=== PATIENT | male | born 1970 | race Caucasian/White ===

== ENCOUNTER 2020-10-01 19:40 | Emergency (ER) | payer MEDICAID, SELFPAY ==
--- NOTE | 2020-10-01 | ECG_ITS ---
Test Reason : CP Blood Pressure : / mmHG Vent. Rate : 105 BPM Atrial Rate : 105 BPM P-R Int : 140 ms QRS Dur : 064 ms QT Int : 316 ms P-R-T Axes : 025 -10 021 degrees QTc Int : 417 ms Sinus tachycardia Otherwise normal ECG No previous ECGs available Referred By: Generic ED Physician Electronically Signed By:JULIA PRIETO MD
--- NOTE | ~2020-10-01 | XR_ITS ---
EXAMINATION: XR FINGER, LEFT CLINICAL INFORMATION: Middle finger injury COMPARISON: None TECHNIQUE: 3 views of the left left hand third digit. FINDINGS: No fracture or dislocation. Alignment is anatomic. Joint spaces are maintained. Soft tissue swelling of the hand. This is greatest at the third digit. No radiopaque foreign body. No osseous erosion. Chronic corticated ulnar styloid fracture fragments. XR/XR finger LT min 2V IMPRESSION: Third digit soft tissue swelling without associated osseous abnormality.
--- NOTE | ~2020-10-01 | XR_ITS ---
EXAMINATION: XR CHEST CLINICAL INFORMATION: Chest pain COMPARISON: 11/19/2014 TECHNIQUE: Frontal view of the chest was obtained. FINDINGS: Cardiac leads overlie the chest. The lungs are well expanded. There is no focal consolidation, edema, or effusion. No pneumothorax. The cardiomediastinal silhouette is within normal limits. No acute osseous abnormality. XR/XR chest 1V IMPRESSION: No acute pulmonary disease.
[2020-10-01 20:07] VITALS: BP 140/94; PULSE 106; RESP 18; TEMP 36.6; O2SAT 96; BMI 36.9
[2020-10-02 00:15] VITALS: BP 130/78; PULSE 89; RESP 18; TEMP 36.6; O2SAT 97
[2020-10-02 00:41] LABS: Basophils Percent Auto 0.4 % (0-2); Hemoglobin 15.2 g/dl (14.0-18.0); Imm Gran Abs Auto 0.02 X10*3/uL (0.00-0.03); Imm Gran Pct Auto 0.3 % (0.0-0.4); Mean Corpuscular Hemoglobin 29.9 pg (27.0-33.0); PLT CLUMP 1; Red Blood Count 5.08 X10*6/uL (4.60-5.80); Red Cell Distribution Width 12.2 % (11.0-16.0); SCAN SMEAR FLAG 1
[2020-10-02 00:42] LABS: MANUAL DIFF FLAG NO
[2020-10-02 00:43] LABS: Eosinophils Absolute Auto 0.3 X10*3/uL (0.0-0.4); Eosinophils Percent Auto 3.5 % (0-4); Hematocrit 45.4 % (42-52); Lymphocytes Absolute Auto 2.4 X10*3/uL (1.2-4.9); Lymphocytes Percent Auto 32.5 % (20-40); Mean Corpuscular HGB Conc 33.5 g/dl (31.0-36.0); Mean Corpuscular Volume 89.4 fL (80-98); Monocytes Absolute Auto 0.8 X10*3/uL (0.1-1.2); Monocytes Percent Auto 10.6 % (2-11); Neutrophils Absolute Auto 3.9 X10*3/uL (2.0-8.3); Neutrophils Percent Auto 52.7 % (45-73); Platelet Count 131 X10*3/uL (160-400); White Blood Count 7.4 X10*3/uL (4.8-10.8)
--- NOTE | 2020-10-02 01:01 | ED_ITS ---
HPI - Extremity Injury (Upper) General Chief Complaint: Chest Pain Stated Complaint: FINGER INFECTION? 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 Patient denies any fevers, chills, GI symptoms, or symptoms. He states he is unable to flex his left middle finger due to the infection. Related Data Previous Rx's Medication Instructions Recorded amoxicillin-pot clavulanate 1 tab PO Q12H 7 Days #14 tab 10/02/20 [Augmentin] metformin 500 mg PO BID 30 Days #60 tab 10/02/20 Allergies Allergy/AdvReac Type Severity Reaction Status Date / Time No Known Allergies Allergy Verified 10/01/20 20:12 [No Known Allergies*] Review of Systems Review of Systems: Pertinent positives and negatives as stated in HPI 10 point review of systems is otherwise negative. PMFSH Past Medical History Source: nursing notes reviewed Medical History Patient denies significant medical history Social History Social History Alcohol intake: never Smoking Status: Never smoker Smoked in Last 30 Days: No Use of substances other than those prescribed or required for medical reasons: Yes Substance Use Type: Marijuana Substance Use Frequency: Weekly Advance Directives: No Physical Exam Vital Signs: Vital Signs: Last Vital Signs Temp 97.8 F 10/02/20 00:15 Pulse 89 10/02/20 00:15 Resp 18 10/02/20 00:15 BP 130/78 10/02/20 00:15 Pulse Ox 97 10/02/20 00:15 Body Mass Index 36.9 VITAL SIGNS: Reviewed. GENERAL: Well developed, well nourished, in no acute distress. HEAD: Normocephalic/atraumatic EYES: PERRLA, EOMI OROPHARYNX: no oral lesions noted, posterior pharynx clear NECK: Supple, no adenopathy LUNGS: Normal breath sounds. No adventitious sounds or accessory muscle use. SpO2<97> CARDIOVASCULAR: Regular rate and rhythm without noted murmurs ABDOMEN: Soft, non-tender, non-distended with bowel sounds. LEFT MIDDLE FINGER: Noted pustule with surrounding abscess at the [place] DIP and observed inability to flex anywhere along the digit, capillary refill less than 3 seconds, sensation intact, but digit noted to be swollen in general. NEUROLOGIC: Alert and oriented x 4. Course Course Course Narrative: 50-year-old male with history and clinical presentation consis tent with injury to the left middle digit and subsequent development of infection. On review of all investigations patient is noted to be new diagnosis of diabetes and x-ray is negative for any acute dislocation or fracture. Incision and drainage was performed for release of 2-3 cc of purulence material and procedure was uncomplicated. Repeat point of care glucose was noted to be 351 and there is no evidence some lab work of DKA or HHS. Patient was given initial antibiotics here in the emergency room and will be discharged on completion of course with the referral to see Hand surgery. He and his daughter know to call the hand surgeon office in the morning to set up an appointment for re-evaluation. Patient will also be discharged with a prescription for metformin and both he and his daughter know that he must follow up with the primary care provider. Procedures Abscess I/D Site: hand Side (if applicable): left Sedation/analgesia: none Local Anesthetic: lidocaine 2% Amount of anesthesia used (mL): 5 Technique: incised with blade (11) Amount of fluid expressed (mL): 2 Sent for culture/gram staining?: No Irrigation: Yes Packing used?: none MDM - Extremity Injury (Upper) Lab Data Result diagrams: 10/02/20 00:35 10/02/20 00:35 Labs: Lab Results 10/02/20 10/02/20 10/02/20 Range/Units 00:35 00:35 00:35 WBC 7.4 (4.8-10.8) X10*3/uL RBC 5.08 (4.60-5.80) X10*6/uL Hgb 15.2 (14.0-18.0) g/dl Hct 45.4 (42-52) % MCV 89.4 (80-98) fL MCH 29.9 (27.0-33.0) pg MCHC 33.5 (31.0-36.0) g/dl RDW 12.2 (11.0-16.0) % Plt Count 131 L (160-400) X10*3/uL MPV 12.0 (9.4-12.4) fL Immature Gran % (Auto) 0.3 (0.0-0.4) % Neut % (Auto) 52.7 (45-73) % Lymph % (Auto) 32.5 (20-40) % Juncos % (Auto) 10.6 (2-11) % Eos % (Auto) 3.5 (0-4) % Baso % (Auto) 0.4 (0-2) % Lymph # (Auto) 2.4 (1.2-4.9) X10*3/uL Jun[place] # (Auto) 0.8 (0.1-1.2) X10*3/uL Eos # (Auto) 0.3 (0.0-0.4) X10*3/uL Baso # (Auto) 0.0 (0.0-0.2) X10*3/uL Abs Immat Gran (auto) 0.02 (0.00-0.03) X10*3/uL Absolute Neuts (auto) 3.9 (2.0-8.3) X10*3/uL Absolute Nucleated RBC 0.000 (0.0-0.012) X10*3/uL Nucleated RBC % (auto) 0.0 (0.0-0.2) /100WBC Hold Blue Top SEE NOTE Sodium 134 L (135-145) mmol/L Potassium 3.9 (3.3-5.1) mmol/L Chloride 96 (96-108) mmol/L Carbon Dioxide 27 (22-29) mmol/L Anion Gap 15 (12-20) BUN 14 (9-16) mg/dL Creatinine 0.98 (0.5-1.4) mg/dL Estim Creat Clear Calc 109.4 Estimated GFR > 60 POC Glucose (60-115) mg/dL Random Glucose 402 H* (60-115) mg/dL Calcium 8.9 (8.4-10.2) mg/dL Troponin I High Sens (<3.5-35.0) ng/L 10/02/20 10/02/20 Range/Units 00:35 02:23 WBC (4.8-10.8) X10*3/uL RBC (4.60-5.80) X10*6/uL Hgb (14.0-18.0) g/dl Hct (42-52) % MCV (80-98) fL MCH (27.0-33.0) pg MCHC (31.0-36.0) g/dl RDW (11.0-16.0) % Plt Count (160-400) X10*3/uL MPV (9.4-12.4) fL Immature Gran % (Auto) (0.0-0.4) % Neut % (Auto) (45-73) % Lymph % (Auto) (20-40) % Juncos % (Auto) (2-11) % Eos % (Auto) (0-4) % Baso % (Auto) (0-2) % Lymph # (Auto) (1.2-4.9) X10*3/uL Jun[place] # (Auto) (0.1-1.2) X10*3/uL Eos # (Auto) (0.0-0.4) X10*3/uL Baso # (Auto) (0.0-0.2) X10*3/uL Abs Immat Gran (auto) (0.00-0.03) X10*3/uL Absolute Neuts (auto) (2.0-8.3) X10*3/uL Absolute Nucleated RBC (0.0-0.012) X10*3/uL Nucleated RBC % (auto) (0.0-0.2) /100WBC Hold Blue Top Sodium (135-145) mmol/L Potassium (3.3-5.1) mmol/L Chloride (96-108) mmol/L Carbon Dioxide (22-29) mmol/L Anion Gap (12-20) BUN (9-16) mg/dL Creatinine (0.5-1.4) mg/dL Estim Creat Clear Calc Estimated GFR POC Glucose 351 H* (60-115) mg/dL Random Glucose (60-115) mg/dL Calcium (8.4-10.2) mg/dL Troponin I High Sens < 3.5 (<3.5-35.0) ng/L Discharge Plan Discharge Clinical Impression: Newly diagnosed diabetes, Abscess, Encounter for incision and drainage procedure Patient Disposition: Home, Self-Care Instructions: Foot Care for People with Diabetes (ED), Type 2 Diabetes in Adults: New Diagnosis (ED), Meal Planning with Diabetes Exchanges (DC), Diabetes and Your Skin (ED), Diabetes and Your Mouth (ED), Diabetes and Nutrition (ED), Diabetes and Exercise (ED) Additional Instructions: 1. Contin?e limpiando el dedo con agua y jab?n y s?quelo con jason nueva aplicaci?n de Band-Aid. 2. Deber? llamar a la oficina de la derivaci?n de cirug?a de mano que se le hayes proporcionado a continuaci?n. 3. Reci?n le diagnosticaron diabetes y le empezaron a yumiko un nuevo medicamento. Vaya a la farmacia para recoger vin medicamento y luego t?ansari seg?n las indicaciones. 4. Debe hacer un seguimiento con meek proveedor de atenci?n primaria lo antes posible para jason reevaluaci?n despu?s de un diagn?stico reciente de diabetes. No dude en volver al servicio de urgencias si presenta un empeoramiento km de los s?ntomas. Prescriptions: New amoxicillin-pot clavulanate [Augmentin] 875-125 mg tablet 1 tab PO Q12H 7 Days Qty: 14 RF: 0 metformin 500 mg tablet 500 mg PO BID 30 Days Qty: 60 RF: 0 Referrals: Physician,None [Primary Care Provider] - 2 days Candace Casillas MD [Physician] - 2 days (Please evaluate and treat as indicated for patient with abscess at DIP of left middle finger, not definitively tenosynovitis was started on Augmentin after I&D for 2 cc of purulence drainage. Thank you.) Print Language: [place]an
[2020-10-02 01:09] LABS: Troponin-I High Sensitivity < 3.5 ng/L (<3.5-35.0)
[2020-10-02 01:11] LABS: Anion Gap 15 (12-20); Blood Urea Nitrogen 14 mg/dL (9-16); Calcium 8.9 mg/dL (8.4-10.2); Carbon Dioxide 27 mmol/L (22-29); Chloride 96 mmol/L (96-108); Creatinine Clr Calc Pharmacy 109.4; Estimated Glomerular Filt Rate > 60; Glucose Random 402 mg/dL (60-115); Potassium 3.9 mmol/L (3.3-5.1); Sodium 134 mmol/L (135-145)
[2020-10-02] MEDS: Lidocaine HCl 2 % MPF 5 ML VIAL INFILTRATI (01:43)
[2020-10-02] MEDS: Diphth,Pertus(ACell),Tet Adult 0.5 ML SYRINGE IM (01:44)
[2020-10-02 02:28] LABS: Glucose, Whole Blood 351 mg/dL (60-115)
[2020-10-02] MEDS: Amoxicillin/Potassium Clav 875 MG TABLET PO (03:05)
== END 2020-10-02 03:10 | disposition home or self-care (01) ==
PROVIDERS: Emergency Provider Student in an Organized Health Care Education/Training Program
DX: L02.512 Cutaneous abscess of left hand (principal); E11.9 Type 2 diabetes mellitus without complications; F12.90 Cannabis use, unspecified, uncomplicated
CPT/HCPCS: 26010; 36415; 71045; 73140; 80048; 82947; 84484; 85025; 90471; 90715; 93005; 99284

== ENCOUNTER 2020-10-07 09:26 | Outpatient (REF) | payer MEDICAID, SELFPAY ==
--- NOTE | ~2020-10-07 | XR_ITS ---
EXAMINATION: XR HAND, LEFT CLINICAL INFORMATION: Left hand pain. COMPARISON: Pain left hand TECHNIQUE: PA, lateral, and oblique views of the left hand. FINDINGS: The bones and soft tissues are normal. No fracture. Alignment is anatomic. Joint spaces are maintained. There are no bony erosive changes. Dizziness osseous bone at the tip of ulnar styloid process likely remote injury or accessory bone. XR/XR hand LT min 3V IMPRESSION: No acute fracture dislocation. Small well formed bone with smooth margins along the tip of ulnar styloid process likely old avulsion injury or accessory bone.
== END 2020-10-07 09:27 | disposition home or self-care (01) ==
LOC: HO.HOSX 09:26
PROVIDERS: Visit Provider Orthopaedic Surgery
DX: M79.642 Pain in left hand (principal); M65.9 Synovitis and tenosynovitis, unspecified; L08.9 Local infection of the skin and subcutaneous tissue, unspecified
CPT/HCPCS: 73130; 99202

== ENCOUNTER 2020-10-10 07:23 | Day surgery (SDC) | payer MEDICAID, SELFPAY ==
--- NOTE | 2020-10-09 09:00 | HO.ANESPROP2 ---
Documented by User: Britt Guerrero 10/09/20 09:03 HPI - Anesthesia Eval Consult details Narrative: 50yo M for Left I&D of Middle Finger with Flexor Tendon Sheath PMFSH Active Problems Active Problems: All Active Problems (Updated 10/07/20 @ 14:12 by Candace Casillas MD) Finger infection (Acute) Flexor tenosynovitis of finger (Acute) Past Medical History Medical History (Updated 10/09/20 @ 09:03 by Britt Guerrero) Diabetes Social History Social History (Updated 10/07/20 @ 13:31 by PAKO Allen) Alcohol intake: never Smoking Status: Never smoker Use of substances other than those prescribed or required for medical reasons: Yes Substance Use Type: Marijuana Substance Use Frequency: Weekly Are you DNR?: No Advance Directives: No Advance Directives Information Provided: Yes Current occupation: right handed. Meds Allergies Allergy/AdvReac Type Severity Reaction Status Date / Time No Known Allergies Allergy Verified 10/07/20 13:29 [No Known Allergies*] Home Medications Medication Instructions Recorded Confirmed Last Taken Type metformin 1 tab PO BID 10/09/20 10/09/20 Unknown History Exam Exam Date and Time: October 09, 2020 0900 Pertinent Lab Results Pertinent Lab Results: Laboratory Tests 10/02/20 10/02/20 00:35 00:35 WBC 7.4 Hgb 15.2 Hct 45.4 Plt Count 131 L Sodium 134 L Potassium 3.9 Chloride 96 Carbon Dioxide 27 BUN 14 Creatinine 0.98 Narrative Narrative: EKG 10/01/20 Vent. Rate : 105 BPM Atrial Rate : 105 BPM P-R Int : 140 ms QRS Dur : 064 ms QT Int : 316 ms P-R-T Axes : 025 -10 021 degrees QTc Int : 417 ms Sinus tachycardia Otherwise normal ECG No previous ECGs available Assessment and Plan Assessment Anesthesia Assessment: Chart Reviewed Documented by User: Abby Porter 10/10/20 08:39 PMFSH Past Medical History Medical History (Updated 10/09/20 @ 09:03 by Britt Guerrero) Diabetes Social History Social History (Updated 10/07/20 @ 13:31 by PAKO Allen) Alcohol intake: never Smoking Status: Never smoker Use of substances other than those prescribed or required for medical reasons: Yes Substance Use Type: Marijuana Substance Use Frequency: Weekly Are you DNR?: No Advance Directives: No Advance Directives Information Provided: Yes Current occupation: right handed. Meds Allergies Allergy/AdvReac Type Severity Reaction Status Date / Time No Known Allergies Allergy Verified 10/07/20 13:29 [No Known Allergies*] Home Medications Medication Instructions Recorded Confirmed Last Taken Type metformin 1 tab PO BID 10/09/20 10/09/20 Unknown History Exam Airway Mallampati Class: III TM Dist: >3cm Neck ROM: Full Heart: RRR Lungs: CTA Assessment and Plan Assessment Anesthesia Assessment: Anesthesia Plan Discussed and Chart Reviewed Final Anesthetic Review NPO: Yes ASA Class: III Final Preanesthetic Review: Meds/Allgs Chart Reviewed, Consent Obtained/Reviewed and Anes Risks/Benef Reviewed Patient Risk: Intermediate Procedure Risk: Low Anesthetic Plan Anesthetic Plan: GA Disposition: Standard PACU
[2020-10-10 07:38] LABS: Glucose, Whole Blood 294 mg/dL (60-115)
[2020-10-10 07:50] VITALS: BMI 36.9
[2020-10-10 07:59] VITALS: BP 148/97; PULSE 90; RESP 16; TEMP 36.1; O2SAT 97
[2020-10-10] MEDS: Insulin Regular, Human 100 UNIT/ML 3 ML VIAL 10 UNIT SUBCUT (08:11)
[2020-10-10] MEDS: Lactated Ringers 1,000 ML 100 ML IVCONT (08:29)
--- NOTE | 2020-10-10 08:31 | PC.NURSE ---
Patients blood sugar [address] Abby Porter notified. New order for Insulin Regular 10 Units SQ. This administered in posterior right upper arm, tolerated well. Per Dr. Porter, recheck sugar prior to going into OR.
--- NOTE | 2020-10-10 09:10 | PC.NURSE ---
Blood Sugar rechecked at 0909, results 300. Dr Porter at bedside and notified. Okay to proceed with surgery and staff to recheck after procedure complete.
[2020-10-10 09:13] LABS: Glucose, Whole Blood 300 mg/dL (60-115)
--- NOTE | 2020-10-10 09:13 | MHC.SHP ---
Pre-Procedural Eval Section B Chief Complaint: synovitis and tenosynovitis Allergies: Allergies Allergy/AdvReac Type Severity Reaction Status Date / Time No Known Allergies Allergy Verified 10/07/20 13:29 [No Known Allergies*] Plan I have reviewed the history and physical and performed a pertinent physical examination on my patient. No changes have occurred unless specified.
--- NOTE | 2020-10-10 09:14 | P.OP_ITS ---
Operative Note Operative Note Date of Service: 10/10/20 Narrative: Operative Note Narrative: Preop diagnosis: Left middle finger flexor tenosynovitis Postop diagnosis: Same Procedure: Left middle finger I and D of flexor tendons within flexor tendon sheath Surgeon: Candace Casillas MD Anesthesia: Mac plus regional block Findings: Creamy purulence drainage from the ulnar aspect of the finger near the D IP flexion crease. This appeared to extend distally and volarly. No purulence found in the areas of the A1 ivy and A3 ivy of the flexor tendon sheath. Flexor tendon it is a found to be in good condition Implants: None Tourniquet time: 22 minutes EBL: 5.0 ml Specimen: Cultures taken of purulent material. Note patient is on Augmentin Drains: None Complications: None Disposition: Brought to the recovery room in stable condition Plan: I will give him a new prescription for Augmentin for 10 days. Follow-up early next week for wound check Indications: The patient is 50 years old with left middle finger infection, worrisome for a flexor tenosynovitis . The risks and benefits of operative treatment, including but not limited to risk of damage to blood vessels, nerves, tendons, infection, recurrence, persistent pain or numbness, incomplete resolution of preoperative symptoms, or need for further surgery were discussed with the patient and they wished to proceed with surgery. Procedure: Once consent was obtained patient was brought back to the operating suite and placed in the operating table in a supine position. . Perioperative anesthesia was administered by the anesthesia team. A tourniquet was applied to the proximal aspect of the left upper extremity and the limb was prepped and draped in a standard surgical fashion. The limb was elevated exsanguinated with Esmarch bandage and the tourniquet inflated to 250 mm of mercury for a total tourniquet time of 22 minutes. A Kulwant is a type incision was made over the volar aspect of the patient's left middle finger over the middle phalanx and proximal aspect of the distal phalanx, incorporating the laceration. Second incision was also made over the A1 ivy. The incision was made through the skin to the subcutaneous tissues using a 15. Blade. Careful dissection was made down to the level of the flexor tendon sheath with care being taken to protect the neurovascular structures. . There was thick creamy purulent material just beneath the skin near where the ER I and D had been performed at the ulnar aspect of the D IP flexion crease. This appeared to extend distally and volarly to the area of the flexor tendon insertion. Cultures were taken of this material. The flexor tendon was visualized from the A3 ivy distally. The flexor tendons appeared to be in good condition. The A1 ivy was opened proximally using a fresh set of ins truments. There was no gross purulence in this area. The A1 ivy was opened longitudinally using tenotomy scissors. I then placed a 20 gauge Angiocath the knee of the A2 ivy and irrigated from proximal to distal with normal saline copiously irrigating the flexor tendon sheath. I then passed the Angiocath from proximal to distal across the A4 ivy copiously irrigating the flexor tendon s flako in this area. The wound itself was then copiously irrigated using a bulb syringe. Some nonviable tissue was debrided using a 15. Blade and tenotomy scissors. This was mostly in the area of the previous I&D at the ulnar aspect of the D IP flexion crease. Once satisfied with our I and D the skin edges were reapproximated with some 5 0 Prolene suture material. Care was taken to reapproximate this loosely particularly in the area of the ulnar aspect of the D IP flexion crease to allow for drainage. At this point the tourniquet was deflated and hemostasis obtained with a brief period of local pressure . A digital block was performed with using some core % plain Marcaine for postop pain control. A sterile dressing and a dorsal blocking splint were then applied. The patient appears to have tolerated the procedure well and with no complications. All digits were well vascularized conclusion of the case.
[2020-10-10 10:30] VITALS: BP 134/91; PULSE 78; RESP 16; TEMP 36.8; O2SAT 98
[2020-10-10 10:35] VITALS: BP 124/91; PULSE 76; RESP 16; O2SAT 100
[2020-10-10 10:40] VITALS: BP 124/89; PULSE 75; RESP 18; O2SAT 100
[2020-10-10 10:45] VITALS: BP 123/88; PULSE 76; RESP 18; O2SAT 99
[2020-10-10 11:00] VITALS: BP 125/84; PULSE 90; RESP 20; TEMP 37.2; O2SAT 99
[2020-10-10 11:22] LABS: Glucose, Whole Blood 263 mg/dL (60-115)
== END 2020-10-10 12:03 | disposition home or self-care (01) ==
PROVIDERS: Visit Provider Orthopaedic Surgery
PROC: (CPT 26020; principal; 2020-10-10 09:00)
DX: M65.9 Synovitis and tenosynovitis, unspecified (principal); L08.9 Local infection of the skin and subcutaneous tissue, unspecified
CPT/HCPCS: 26020; 82947; 87071; 87077; 87186; 87205; J2250; J3010

== ENCOUNTER → 2020-10-15 13:18 | Outpatient (BNVA) | payer MEDICAID, SELFPAY | PROVIDERS: Visit Provider Orthopaedic Surgery | DX: M65.9 Synovitis and tenosynovitis, unspecified (principal); L08.9 Local infection of the skin and subcutaneous tissue, unspecified | CPT/HCPCS: 99212 ==

== ENCOUNTER 2020-10-16 13:31 | Inpatient (IN) | payer MEDICAID, SELFPAY ==
[2020-10-16] VITALS (12 sets, daily range): BP systolic 109–150; BP diastolic 82–95; PULSE 70–79; RESP 16; TEMP 36.1–36.7; O2SAT 94–99; BMI 31.9; BMI 36.9
[2020-10-16 10:34] LABS: Glucose, Whole Blood 271 mg/dL (60-115)
[2020-10-16] MEDS: Lactated Ringers 1,000 ML 50 ML IV ×2 (10:42→17:34)
--- NOTE | 2020-10-16 11:40 | HO.ANESPROP2 ---
HPI - Anesthesia Eval Consult details Narrative: 50 yo male patient here for I&D of flexor tendon left middle finger. Patient had same procedure done here a week ago [facility] Active Problems Active Problems: All Active Problems (Updated 10/09/20 @ 09:03 by Britt Guerrero) Finger infection (Acute) Flexor tenosynovitis of finger (Acute) Past Medical History Medical History (Updated 10/16/20 @ 12:36 by Lori Oakes) Diabetes Increased BMI Family History Family history of problems with anesthesia: No Surgical History Surgical History (Updated 10/16/20 @ 13:03 by Lori Oakes) Finger infection Laceration of scalp History of Problems with Anesthesia: No Social History Social History (Updated 10/16/20 @ 11:51 by Lori Oakes) Alcohol intake: never Smoking Status: Never smoker Use of substances other than those prescribed or required for medical reasons: Yes Substance Use Type: Marijuana Last Used Substance: Weeks (ago) Last Used Substance Other:: A week ago Currently Displaying Signs/Symptoms of Drug Intoxication Withdrawal: No Are you DNR?: No Advance Directives: No Advance Directives Information Provided: Yes Current occupation: right handed. Meds Allergies Allergy/AdvReac Type Severity Reaction Status Date / Time No Known Allergies Allergy Verified 10/15/20 14:13 [No Known Allergies*] Home Medications Medication Instructions Recorded Confirmed Last Taken Type metformin 1 tab PO BID 10/09/20 10/09/20 Unknown History Exam Exam Date and Time: October 16, 2020 1140 Height,Weight and Vital Signs: Height 5 ft 9 in Weight 113.398 kg Last Vital Signs Temp 97.9 F 10/16/20 10:24 Pulse 77 10/16/20 10:24 Resp 16 10/16/20 10:24 BP 136/93 H 10/16/20 10:24 Pulse Ox 97 10/16/20 10:24 Pertinent Lab Results Pertinent Lab Results: Laboratory Tests 10/16/20 10:29 POC Glucose 271 H Airway Mallampati Class: III TM Dist: >3cm Neck ROM: Full Heart: RRR Lungs: CTAB Assessment and Plan Assessment Anesthesia Assessment: Anesthesia Plan Discussed and Chart Reviewed Final Anesthetic Review NPO: Yes ASA Class: II Final Preanesthetic Review: No Changes in Pt Med Stat, Meds/Allgs Chart Reviewed, Consent Obtained/Reviewed and Anes Risks/Benef Reviewed Patient Risk: Intermediate Procedure Risk: Low Assessment/Block/Sedation in SS: Assess/Block/Sedation-SS Anesthetic Plan Anesthetic Plan: GA Disposition: Standard PACU
--- NOTE | 2020-10-16 12:04 | PC.NURSE ---
Patients BS 271 at at 1029. Anesthesiologist [address] Oakes notified. No new orders, okay to proceed with surgery.
--- NOTE | 2020-10-16 12:24 | MHC.SHP ---
Pre-Procedural Eval Section B Chief Complaint: I&D middle finger Allergies: Allergies Allergy/AdvReac Type Severity Reaction Status Date / Time No Known Allergies Allergy Verified 10/15/20 14:13 [No Known Allergies*] Plan I have reviewed the history and physical and performed a pertinent physical examination on my patient. No changes have occurred unless specified.
--- NOTE | 2020-10-16 12:24 | W.PM.OPN ---
Operative Note Operative Note Date of Service: 10/16/20 Narrative: Operative Note Narrative: Preop diagnosis: 1. Left middle finger infection Postop diagnosis: Same Procedure: 1. Left middle finger and hand flexor tendon sheath I&D Surgeon: Candace Casillas MD Anesthesia: Mac plus regional block Findings: Yellow purulent material from left middle finger flexor tendon sheath over the middle and distal phalanxes, and now also found in the A1 ivy area Implants: None Tourniquet time: 30 minutes EBL: 5.0 ml Specimen: Cultures from left middle finger Drains: None Complications: None Disposition: Brought to the recovery room in stable condition Plan: Admit for IV antibiotics Hospitalist consultation for newly diagnosed and uncontrolled diabetic, please note patient does not have PCP Infectious disease consultation Wound check tomorrow Check cultures Indications: The patient is a 50 year old man with newly diagnosed diabetes and a left middle finger flexor tenosynovitis. He is status post I and D last week where he was placed on Augmentin. He has since grown Klebsiella oxytoca which is not sensitive to Augmentin. . The risks and benefits of operative treatment, including but not limited to risk of damage to blood vessels, nerves, tendons, infection, recurrence, persistent pain or numbness, incomplete resolution of preoperative symptoms, or need for further surgery were discussed with the patient and they wished to proceed with surgery. Procedure: Once consent was obtained patient was brought back to the operating suite and placed in the operating table in a supine position. . Anesthesia was administered by the anesthesia team. A tourniquet was applied to the proximal aspect of the left upper extremity and the limb was prepped and draped in a standard surgical fashion. The limb was elevated exsanguinated with Esmarch bandage at the mid forearm and the tourniquet inflated to 250 mm of mercury for a total tourniquet time of 30 minutes. Sutures were removed from the left middle finger and also from the A1 ivy area at the base of the middle finger. Purulent material was found in both areas this time. Some nonviable tissue was debrided from the wound over the middle phalanx and DIP joint using tenotomy scissors. Both wounds were copiously irrigated with normal saline. I then passed an 18 gauge Angiocath beneath the A2 ivy and copiously irrigated the flexor tendon sheath in a proximal to distal direction with fluid seen in the more distal wound. Both the A1 ivy and more distal finger wounds were again copiously irrigated with normal saline. Flexor tendons were found to be in good condition. I did not see any obvious connection to the D IP joint, though it is clearly near the infection site. The infection does extend to the volar aspect of the distal phalanx just FDP insertion, but no penetration that At this point the tourniquet was deflated and hemostasis obtained with a brief period of local pressure . The skin edges were reapproximated with 5-0 nylon suture. A digital block was performed with some core % plain Marcaine for postop pain control. A sterile dressing was applied. The patient appears to have tolerated the procedure well and with no complications. All digits were well vascularized conclusion of the case.
--- NOTE | 2020-10-16 14:36 | P.CONIM_ITS ---
History of Present Illness Data of Consult Service Date: 10/16/20 <Marcelina Moran NP - Last Filed: 10/16/20 17:12> Requesting physician: Candace Casillas <Marcelina Moran NP - Last Filed: 10/16/20 17:12> Primary Care Provider: Jackelyn Physician <Marcelina Moran NP - Last Filed: 10/16/20 17:12> HPI Reason for consult: diabetes management <Marcelina Moran NP - Last Filed: 10/16/20 17:12> 50-year-old man admitted by Orthopedic surgery for left middle finger and hand flexor tendon sheath incision and drainage. He was initially seen and early October for flexor tenosynovitis. He was admitted today by Orthopedic surgery for pain management and management of his diabetes. Patient reports that he was diagnosed with diabetes in July of 2020. He reports he does not have a PCP so he was unable to get any prescriptions for a meter or other supplies. His daughter did pick him 1 up but he was unsure of how to use it. He was sent from the ED with metformin and reports that he has been taking it twice a day. His A1c is noted to be 11.5 and blood sugars are S highest 351. At this time he has very minimal amount of pain he is resting in bed comfortably with his daughter present during the interview. <Marcelina Moran NP - Last Filed: 10/16/20 17:12> Review of Systems Review of Systems: Denies any recent fever chills or decrease in appetite respiratory denies any shortness of breath coverage production cardiovascular is adjustment of any PND or edema gastrointestinal denies any dysphagia abdominal pain nausea vomiting or diarrhea genitourinary denies any dysuria frequency or hematuria musculoskeletal no pain to left hand at the moment neuropsych denies any weakness or seizures all other systems reviewed are negative <Marcelina Moran NP - Last Filed: 10/16/20 17:12> ON LICENSE OF [facility] Medical History: Medical History (Updated 10/19/20 @ 10:28 by Marcelina Moran NP) Diabetes Increased BMI <Marcelina Moran NP - Last Filed: 10/16/20 17:12> Surgical History: Surgical History (Updated 10/19/20 @ 13:49 by Devon Cobos MD) Finger infection Laceration of scalp <Marcelina Moran NP - Last Filed: 10/16/20 17:12> Social History: Social History (Updated 10/16/20 @ 11:51 by Lori Oakes) Housing: Apartment Do you presently have visiting nurse or other home services: No Alcohol intake: never Smoking Status: Never smoker Use of substances other than those prescribed or required for medical reasons: Yes Substance Use Type: Marijuana Substance Use Frequency: Weekly Last Used Substance: Weeks (ago) Last Used Substance Other:: A week ago Currently Displaying Signs/Symptoms of Drug Intoxication Withdrawal: No Any prior treatment program specific to substance use: No Have you been hit, kicked, punched, or otherwise hurt by someone within the past year? If so, by whom?: No Do you feel safe in your current relationship?: No Current Relationship Is there a partner from a previous relationship who is making you feel unsafe now?: No Are you made to feel afraid or neglected: No Are you DNR?: No Advance Directives: No Advance Directives Information Provided: Yes Do you have thoughts of harming others: None Do you have a plan to hurt others: No Plan Recently lost weight without trying: No Nutrition Risks: No Nutritional Risk Poor oral hygiene: No service: No Current occupational status: unemployed Current occupation: right handed. <Marcelina Moran NP - Last Filed: 10/16/20 17:12> Meds Allergies/Adverse reactions: Allergies Allergy/AdvReac Type Severity Reaction Status Date / Time No Known Allergies Allergy Verified 10/15/20 14:13 [No Known Allergies*] <Marcelina Moran NP - Last Filed: 10/16/20 17:12> Active Medications: Current Medications Generic Name Dose Route Start Last Admin Trade Name Freq PRN Reason Stop Dose Admin Fentanyl 25 mcg 10/16/20 13:05 Fentanyl Citrate/Pf 100 Mcg/2 Ml Vial IVPUSH Q5M PRN Pain, Moderate (Pain Scale 4-6 Fentanyl 50 mcg 10/16/20 13:05 Fentanyl Citrate/Pf 100 Mcg/2 Ml Vial IVPUSH Q5M PRN Pain, Severe (Pain Scale 7-10) Lactated Ringer's 1,000 mls @ 50 mls/hr 10/16/20 11:45 10/16/20 10:42 Lr IV 50 mls/hr .Q20H VIKAS Administration Levofloxacin 750 mg in 150 mls @ 100 mls/hr 10/17/20 13:00 Levaquin IV Q24H VIKAS Ondansetron HCl 4 mg 10/16/20 13:05 Ondansetron Hcl 4 Mg/2 Ml Vial IVPUSH ONCE PRN Nausea and Vomiting Oxycodone HCl 5 mg 10/16/20 13:05 Oxycodone Hcl Immed Release 5 Mg Tablet PO ONCE PRN Pain, Moderate (Pain Scale 4-6 Oxycodone HCl 10 mg 10/16/20 13:05 Oxycodone Hcl Immed Release 5 Mg Tablet PO ONCE PRN Pain, Severe (Pain Scale 7-10) Oxycodone HCl 5 mg 10/16/20 13:34 Oxycodone Hcl Immed Release 5 Mg Tablet PO Q8H PRN Pain, Moderate (Pain Scale 4-6 <Marcelina Moran NP - Last Filed: 10/16/20 17:12> Physical Exam Vital Signs and Narrative: Vital Signs: Last Vital Signs Temp 97.4 F 10/16/20 13:45 Pulse 72 10/16/20 14:15 Resp 16 10/16/20 14:15 BP 122/88 10/16/20 14:15 Pulse Ox 94 10/16/20 14:15 Body Mass Index 36.9 <Marcelina Moran NP - Last Filed: 10/16/20 17:12> Appearing in no acute distress lung sounds are clear to auscultation heart regular rate rhythm, clear S1, S2 positive bowel sounds, abdomen is soft, nontender neuro patient is alert x3, no focal deficits Left middle finger surgical dressing, incision not visualized <Marcelina Moran NP - Last Filed: 10/16/20 17:12> Results Labs CBC and Chem 7: : 10/19/20 05:14 10/16/20 14:45 <Marcelina Moran NP - Last Filed: 10/16/20 17:12> Labs: Laboratory Results - last 24 hr 10/16/20 10:29 POC Glucose 271 H <Marcelina Moran NP - Last Filed: 10/16/20 17:12> Assessment and Plan (1) Finger infection: Status: Acute <Marcelina Moran NP - Last Filed: 10/16/20 17:12> 50 year old man admitted by orthopedic surgery and is s/p Left middle finger and hand flexor tendon sheath I&D Left middle finger infection s/p flexor tendon sheath I&D -Management as per surgical team -Pain management Diabetes. Diagnosed in 07/2020 when seen in the ED for hand pain. A1C 11.5 -needs diabetic teaching -sliding scale -will need meter and supplies for home DVT prophylaxis with as per surgical team DISPO: Will need help finding a PCP Attending: Dr. Cobos <Marcelina Moran NP - Last Filed: 10/16/20 17:12> See and examined and discussed with CYBER ENGINEER, note high A1c for diabetes, compliance stressed compliance with diabetes treatment which is for him, he is been diabetic since july on was on metformin only, Lantus is being addedad along with suplies. <Devon Cobos MD - Last Filed: 10/19/20 13:53>
[2020-10-16 15:07] LABS: COVID-19 Test Negative (Negative)
[2020-10-16 15:08] LABS: Estimated Average Glucose 283 mg/dL; Hemoglobin A1c % 11.5 %
[2020-10-16 15:27] LABS: Anion Gap 12 (12-20); Blood Urea Nitrogen 12 mg/dL (9-16); Calcium 8.8 mg/dL (8.4-10.2); Carbon Dioxide 26 mmol/L (22-29); Chloride 100 mmol/L (96-108); Creatinine Clr Calc Pharmacy 130.8; Estimated Glomerular Filt Rate > 60; Glucose Random 241 mg/dL (60-115); Potassium 4.7 mmol/L (3.3-5.1); Sodium 133 mmol/L (135-145)
[2020-10-16] MEDS: Acetaminophen 325 MG TABLET 650 MG PO (16:05)
[2020-10-16 16:27] LABS: Glucose, Whole Blood 195 mg/dL (60-115)
[2020-10-16] MEDS: Insulin Lispro 100 UNIT/ML 3 ML VIAL SUBCUT ×2 (17:36→20:31)
[2020-10-16 20:11] LABS: Glucose, Whole Blood 269 mg/dL (60-115)
[2020-10-17 04:00] VITALS: BP 129/87; PULSE 80; RESP 16; TEMP 37.2; O2SAT 95
[2020-10-17 06:41] LABS: MANUAL DIFF FLAG NO
[2020-10-17 06:48] LABS: Basophils Percent Auto 0.4 % (0-2); Eosinophils Absolute Auto 0.2 X10*3/uL (0.0-0.4); Eosinophils Percent Auto 2.5 % (0-4); Hematocrit 45.3 % (42-52); Hemoglobin 15.2 g/dl (14.0-18.0); Imm Gran Abs Auto 0.02 X10*3/uL (0.00-0.03); Imm Gran Pct Auto 0.2 % (0.0-0.4); Lymphocytes Absolute Auto 3.1 X10*3/uL (1.2-4.9); Lymphocytes Percent Auto 36.6 % (20-40); Mean Corpuscular HGB Conc 33.6 g/dl (31.0-36.0); Mean Corpuscular Hemoglobin 30.5 pg (27.0-33.0); Monocytes Absolute Auto 0.9 X10*3/uL (0.1-1.2); Monocytes Percent Auto 10.8 % (2-11); Neutrophils Absolute Auto 4.2 X10*3/uL (2.0-8.3); Neutrophils Percent Auto 49.5 % (45-73); Platelet Count 173 X10*3/uL (160-400); Red Blood Count 4.98 X10*6/uL (4.60-5.80); Red Cell Distribution Width 12.3 % (11.0-16.0); White Blood Count 8.6 X10*3/uL (4.8-10.8)
[2020-10-17 07:28] LABS: Glucose, Whole Blood 193 mg/dL (60-115)
[2020-10-17 07:31] VITALS: BP 106/66; PULSE 89; RESP 15; TEMP 36.7; O2SAT 94
[2020-10-17] MEDS: Insulin Lispro 100 UNIT/ML 3 ML VIAL SUBCUT ×3 (07:48→21:23)
[2020-10-17] MEDS: oxyCODONE HCl Immed Release 5 MG TABLET PO (07:54)
--- NOTE | 2020-10-17 08:10 | HO.POSTANES ---
Post Anesthesia Evaluation Post Anesthesia Evaluation Vital Signs: Vital Signs Temp Pulse Resp BP Pulse Ox 10/17/20 07:31 98.1 F 89 15 106/66 94 10/17/20 04:00 98.9 F 80 16 129/87 95 10/16/20 23:42 98.1 F 75 16 132/87 96 Anesthesia: General LMA Mental Status: Awake Pain Control: Satisfactory Nausea/Vomiting: None Hydration: Adequate Anesthesia-Related Issues: No Anes. Related Issues
--- NOTE | 2020-10-17 08:21 | P.PNOP_ITS ---
Subjective Subjective Date of Service: 10/17/20 Interval history: POD1 s/p left middle finger flexor tenosynovitis I&D with Dr. Casillas. Patient states that pain is well controlled. No overnight events. Physical Exam Vital Signs: Vital Signs: Last Vital Signs Temp 98.1 F 10/17/20 07:31 Pulse 89 10/17/20 07:31 Resp 15 10/17/20 07:31 BP 106/66 10/17/20 07:31 Pulse Ox 94 10/17/20 07:31 Body Mass Index 36.9 Const: General: cooperative, healthy appearing and no acute distress Resp: Effort & Inspection: normal respiratory effort and able to speak in complete sentences Cardio: Rate: regular rate Peripheral pulses: Peripheral pulses 2+ throughout GI: Palpation (GI): Soft to palpation Skin: Lesions: no lesions Rashes: no rashes Extrem: Other: Left middle finger dressing is clean, dry, and intact. Patient is able to actively flexion and extend but is severely limited due to pain and edema. Dressing removed. Incision site is well approximated. No active drainage. Sensation intact. Radial pulse intact. Progress Note: A&P Assessment and plan (1) Finger infection: Problem details: S/p I&D left middle finger 10/10/20 Status: Acute Assessment and Plan: Continue pain mgmnt Continue abx per ID DM management per Medicine Case management to work on obtaining a PCP for this patient Daily dressing changes Keep dressing clean, dry, and intact Work on gentle finger and wrist ROM Dispo planning-Pending PT eval, pain mgmnt Fall Risk Details Current Medications: Current Medications Generic Name Dose Route Start Last Admin Trade Name Freq PRN Reason Stop Dose Admin Acetaminophen 650 mg 10/16/20 15:15 10/16/20 16:05 Acetaminophen 325 Mg Tablet PO 650 mg Q6H PRN Administration Pain, Mild (Pain Scale 1-3) Lactated Ringer's 1,000 mls @ 50 mls/hr 10/16/20 11:45 10/16/20 17:34 Lr IV 50 mls/hr .Q20H VIKAS Administration Levofloxacin 750 mg in 150 mls @ 100 mls/hr 10/17/20 13:00 Levaquin IV Q24H VIKAS Insulin Human Lispro 0 unit 10/16/20 16:30 10/17/20 07:48 Insulin Lispro 100 Unit/Ml 3 Ml Vial SUBCUT 2 unit [facility] Administration Protocol Insulin Human Lispro 0 unit 10/16/20 21:00 10/17/20 07:34 Insulin Lispro 100 Unit/Ml 3 Ml Vial SUBCUT Not [facility] Protocol Oxycodone HCl 5 mg 10/16/20 13:34 10/17/20 07:54 Oxycodone Hcl Immed Release 5 Mg Tablet PO 5 mg Q8H PRN Administration Pain, Moderate (Pain Scale 4-6 Pharmacy Consult 1 each 10/16/20 14:56 Consult Rx Perform Med Rec MISCELLANE ONCE PRN Consult order Time Spent With Patient Time: Total time spent is greater than 50% in coordination of care (as documented) at patient's floor/unit and/or counseling patient: Time with patient: less than 15 minutes
--- NOTE | 2020-10-17 11:11 | MHC.CM.PN ---
EMR REVIEWED, PT ADMITTED W/LEFT INDEX FINGER TENOSYNOVITIS, CM MET W/PT AND DTR THELMA WHO IS PASHTO SPEAKING, PER PT CM OBTAINED INFORMATION FROM DTR, PT LIVES ALONE, INDEPENDENT W/CARE, NO DME AND NO HOME SERVICES. DTR REPORTS SHE DOES ACCOMPANY PT TO APPT'S TO MAKE SURE HE GOES, SHE IS CONCERNED THAT PT WILL NOT TAKE PRESCRIBED MEDS HOWEVER PT IS NOT HOME BOUND AND DOES NOT QUALIFY FOR [facility] SERVICES. 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 PT WOULD LIKE TO COMPLETE HCP PRIOR TO D/C, CM WILL CONTACT ORTHOTIST SERVICES TO COMPLETE W/PT. D/C PLAN HOME SELF-CARE, DTR TO TRANSPORT DTR THELMA ROJO [phone]
[2020-10-17 11:34] VITALS: BP 117/72; PULSE 81; RESP 17; TEMP 36.5; O2SAT 95
[2020-10-17 11:46] LABS: Glucose, Whole Blood 305 mg/dL (60-115)
[2020-10-17] MEDS: levoFLOXacin/D5W 750 MG/150 ML PIGGYBACK 100 MG IV (12:13)
--- NOTE | 2020-10-17 12:51 | HO.PM.IMPN ---
Subjective Subjective Date of Service: 10/17/20 Interval History: seen in follow up for left middle finger tenosynovitis s/p I&D no overnight events ROS Cardiovascular: No chest pain, palpitations Pulmonary: No shortness of breath, cough Constitutional: No fever, no chills Musculoskeletal: Left hand pain Physical Exam Vital Signs: Vital Signs: Last Vital Signs Temp 97.7 F 10/17/20 11:34 Pulse 81 10/17/20 11:34 Resp 17 10/17/20 11:34 BP 117/72 10/17/20 11:34 Pulse Ox 95 10/17/20 11:34 Body Mass Index 36.9 Const: General: alert and awake Nutritional Appearance: well nourished Orientation/consciousness: patient oriented x3 HENMT: Head: Yes normocephalic and Yes atraumatic Eyes: Sclerae: sclerae normal Chest: Chest palpation & inspection: normal inspection of the chest Resp: Effort & Inspection: normal respiratory effort and no respiratory distress Cardio: Rate: regular rate Rhythm: regular rhythm GI: Palpation (GI): Soft to palpation and nontender Neuro: General: patient oriented x3 Cranial nerves: Yes CN's II-XII intact bilaterally and Yes Bilaterally intact EOM present Extrem: Other: Left hand wrapped in clean, dry, intact dressing/Salty bandage Objective Data Current Medications Generic Name Dose Route Start Last Admin Trade Name Freq PRN Reason Stop Dose Admin Acetaminophen 650 mg 10/16/20 15:15 10/16/20 16:05 Acetaminophen 325 Mg Tablet PO 650 mg Q6H PRN Administration Pain, Mild (Pain Scale 1-3) Lactated Ringer's 1,000 mls @ 50 mls/hr 10/16/20 11:45 10/16/20 17:34 Lr IV 50 mls/hr .Q20H VIKAS Administration Levofloxacin 750 mg in 150 mls @ 100 mls/hr 10/17/20 13:00 10/17/20 12:13 Levaquin IV 100 mls/hr Q24H VIKAS Administration Insulin Human Lispro 0 unit 10/16/20 16:30 10/17/20 12:12 Insulin Lispro 100 Unit/Ml 3 Ml Vial SUBCUT 8 unit QIDACHS VIKAS Administration Protocol Oxycodone HCl 5 mg 10/16/20 13:34 10/17/20 07:54 Oxycodone Hcl Immed Release 5 Mg Tablet PO 5 mg Q8H PRN Administration Pain, Moderate (Pain Scale 4-6 Pharmacy Consult 1 each 10/16/20 14:56 Consult Rx Perform Med Rec MISCELLANE ONCE PRN Consult order Labs CBC & Chem 7: 10/17/20 06:19 10/16/20 14:45 Microbiology Microbiology Results: Microbiology 10/16/20 13:03 Finger Gram Stain - Final 10/16/20 13:03 Finger Routine Culture - Preliminary Gram negative radha 10/16/20 13:03 Finger Anaerobic Culture - Preliminary No growth to date. Assessment and Plan (1) Finger infection: Problem details: S/p I&D left middle finger 10/10/20 Status: Acute Assessment and Plan: This is a 50 year old male with a history of recently diagnosed diabetes admitted by orthopedic surgery and is s/p Left middle finger and hand flexor tendon sheath I&D Left middle finger infection s/p I&D 10/10 and 10/16 -Management as per surgical team -ID consult pending Diabetes. A1C 11.5 Recently diagnosed by ED. POC still in 200s-300s ?Daughter reports having diabetic supplies at home -metformin on hold -will start low dose lantus -continue SSI, POC -diabetic education -will need endocrinology follow up as well as PCP DVT prophylaxis with as per surgical team Attending: Dr. Whitney
[2020-10-17] MEDS: Lactated Ringers 1,000 ML 50 ML IV (15:06)
[2020-10-17 15:27] VITALS: BP 106/69; PULSE 74; RESP 16; TEMP 36.2; O2SAT 95
[2020-10-17 16:22] LABS: Glucose, Whole Blood 139 mg/dL (60-115)
[2020-10-17] MEDS: Acetaminophen 325 MG TABLET 650 MG PO (18:30)
--- NOTE | 2020-10-17 18:39 | PC.NURSE ---
Patient educated on giving himself insulin today. Patient hesitant on injecting insulin, but is able to clean site with alcohol adequately. Patient reported burning with levofloxacin administration; no s/s of infiltration, flushes well. Rate decreased, no further complaints of burning. Surgeon contacted re code status.
[2020-10-17 19:22] VITALS: BP 134/80; PULSE 81; RESP 16; TEMP 36.5; O2SAT 97
[2020-10-17 20:14] LABS: Glucose, Whole Blood 195 mg/dL (60-115)
[2020-10-17] MEDS: Insulin Glargine,Hum.rec.anlog 100 UNIT/ML 10 ML VIAL 10 UNIT SUBCUT (21:23)
[2020-10-18] VITALS (7 sets, daily range): BP systolic 107–145; BP diastolic 64–88; PULSE 69–90; RESP 14–18; TEMP 36–36.7; O2SAT 96–99
[2020-10-18 06:25] LABS: MANUAL DIFF FLAG NO
[2020-10-18 06:35] LABS: Basophils Percent Auto 0.4 % (0-2); Eosinophils Absolute Auto 0.2 X10*3/uL (0.0-0.4); Hematocrit 47.4 % (42-52); Hemoglobin 15.5 g/dl (14.0-18.0); Imm Gran Abs Auto 0.02 X10*3/uL (0.00-0.03); Imm Gran Pct Auto 0.3 % (0.0-0.4); Lymphocytes Absolute Auto 2.8 X10*3/uL (1.2-4.9); Lymphocytes Percent Auto 39.2 % (20-40); Mean Corpuscular HGB Conc 32.7 g/dl (31.0-36.0); Mean Corpuscular Hemoglobin 29.8 pg (27.0-33.0); Mean Corpuscular Volume 91.2 fL (80-98); Mean Platelet Volume 11.7 fL (9.4-12.4); Monocytes Absolute Auto 0.8 X10*3/uL (0.1-1.2); Monocytes Percent Auto 11.3 % (2-11); Neutrophils Absolute Auto 3.3 X10*3/uL (2.0-8.3); Neutrophils Percent Auto 45.8 % (45-73); Platelet Count 178 X10*3/uL (160-400); Red Cell Distribution Width 12.2 % (11.0-16.0); White Blood Count 7.2 X10*3/uL (4.8-10.8)
[2020-10-18 07:49] LABS: Glucose, Whole Blood 182 mg/dL (60-115)
[2020-10-18] MEDS: Insulin Lispro 100 UNIT/ML 3 ML VIAL SUBCUT ×4 (08:02→20:52)
[2020-10-18] MEDS: Lactated Ringers 1,000 ML 50 ML IV (11:04)
--- NOTE | 2020-10-18 11:23 | HO.PM.IMPN ---
Subjective Subjective Date of Service: 10/18/20 Interval History: follow up for finger infection, reports hand pain denies fever, chills no overnight events Review of Systems Review of Systems: Yes all other systems are reviewed and are negative Constitutional Constitutional: Denies chills and Denies fever(s) Cardiovascular Cardiovascular: Denies chest pain Respiratory Respiratory: Denies cough Gastrointestinal Gastrointestinal: Denies abdominal pain Physical Exam Vital Signs: Vital Signs: Last Vital Signs Temp 98.0 F 10/18/20 08:00 Pulse 79 10/18/20 07:47 Resp 18 10/18/20 07:47 BP 130/88 10/18/20 07:47 Pulse Ox 97 10/18/20 07:47 Body Mass Index 36.9 Const: General: alert and awake Nutritional Appearance: well nourished Orientation/consciousness: patient oriented x3 HENMT: Head: Yes normocephalic and Yes atraumatic Eyes: Sclerae: sclerae normal Chest: Chest palpation & inspection: normal inspection of the chest Resp: Effort & Inspection: normal respiratory effort and no respiratory distress Cardio: Rate: regular rate Rhythm: regular rhythm GI: Palpation (GI): Soft to palpation and nontender Neuro: General: patient oriented x3 Cranial nerves: Yes CN's II-XII intact bilaterally and Yes Bilaterally intact EOM present Extrem: Other: Left hand wrapped in clean, dry, intact dressing/Salty bandage Objective Data Current Medications Generic Name Dose Route Start Last Admin Trade Name Freq PRN Reason Stop Dose Admin Acetaminophen 650 mg 10/16/20 15:15 10/17/20 18:30 Acetaminophen 325 Mg Tablet PO 650 mg Q6H PRN Administration Pain, Mild (Pain Scale 1-3) Lactated Ringer's 1,000 mls @ 50 mls/hr 10/16/20 11:45 10/18/20 11:04 Lr IV 50 mls/hr .Q20H VIKAS Administration Levofloxacin 750 mg in 150 mls @ 100 mls/hr 10/17/20 13:00 10/17/20 14:14 Levaquin IV Infused Q24H VIKAS Infusion Insulin Glargine 10 unit 10/17/20 21:00 10/17/20 21:23 Insulin Glargine,Hum.Rec.Anlog 100 Unit/Ml 10 Ml Vial SUBCUT 10 unit BEDTIME VIKAS Administration Insulin Human Lispro 0 unit 10/16/20 16:30 10/18/20 08:02 Insulin Lispro 100 Unit/Ml 3 Ml Vial SUBCUT 2 unit QIDACHS VIKAS Administration Protocol Oxycodone HCl 5 mg 10/16/20 13:34 10/17/20 07:54 Oxycodone Hcl Immed Release 5 Mg Tablet PO 5 mg Q8H PRN Administration Pain, Moderate (Pain Scale 4-6 Pharmacy Consult 1 each 10/16/20 14:56 Consult Rx Perform Med Rec MISCELLANE ONCE PRN Consult order Labs CBC & Chem 7: 10/18/20 06:14 10/16/20 14:45 Microbiology Microbiology Results: Microbiology 10/16/20 13:03 Finger Gram Stain - Final 10/16/20 13:03 Finger Routine Culture - Final Klebsiella oxytoca 10/16/20 13:03 Finger Anaerobic Culture - Preliminary Culture in progress. Assessment and Plan (1) Finger infection: Problem details: S/p I&D left middle finger 10/10/20 Status: Acute Assessment and Plan: This is a 50 year old male with a history of recently diagnosed diabetes admitted by orthopedic surgery and is s/p Left middle finger and hand flexor tendon sheath I&D Left middle finger infection s/p I&D 10/10 and 10/16 -Management as per surgical team -ID consult pending Diabetes. A1C 11.5 Recently diagnosed. POC improving Daughter reports having diabetic supplies at home -continue low dose lantus -resume metformin -continue SSI, POC -diabetic education -will need endocrinology follow up as well as PCP DVT prophylaxis with as per surgical team Attending: Dr. Whitney
[2020-10-18 11:26] LABS: Glucose, Whole Blood 276 mg/dL (60-115)
[2020-10-18] MEDS: levoFLOXacin/D5W 750 MG/150 ML PIGGYBACK 100 MG IV (13:04)
--- NOTE | 2020-10-18 13:30 | W.PM.IDCN ---
History of Present Illness Data of Consult Service Date: 10/18/20 Requesting physician: Candace Casillas Primary Care Provider: None Physician HPI Reason for consult: left finger tendonitis He presents to hospital for purulence left index finger He smashed hand in door last week XRay shows old avulsion Culture taken show Klebsiella oxytoca Review of Systems Review of Systems: Yes all other systems are reviewed and are negative PMFSH Past Medical History Medical History Diabetes Increased BMI Family History Family history: reviewed and not pertinent Surgical History Surgical History Finger infection Laceration of scalp Social History Social History Housing: Apartment Do you presently have visiting nurse or other home services: No Alcohol intake: never Substance Use Type: Marijuana service: No Current occupational status: unemployed Current occupation: right handed. Meds Allergies Allergy/AdvReac Type Severity Reaction Status Date / Time No Known Allergies Allergy Verified 10/29/20 11:50 [No Known Allergies*] Active Medications: Current Medications Generic Name Dose Route Start Last Admin Trade Name Freq PRN Reason Stop Dose Admin Acetaminophen 650 mg 10/16/20 15:15 10/17/20 18:30 Acetaminophen 325 Mg Tablet PO 650 mg Q6H PRN Administration Pain, Mild (Pain Scale 1-3) Levofloxacin 750 mg in 150 mls @ 100 mls/hr 10/17/20 13:00 10/18/20 13:04 Levaquin IV 100 mls/hr Q24H VIKAS Administration Insulin Glargine 10 unit 10/17/20 21:00 10/17/20 21:23 Insulin Glargine,Hum.Rec.Anlog 100 Unit/Ml 10 Ml Vial SUBCUT 10 unit BEDTIME VIKAS Administration Insulin Human Lispro 0 unit 10/16/20 16:30 10/18/20 11:36 Insulin Lispro 100 Unit/Ml 3 Ml Vial SUBCUT 6 unit QIDACHS VIKAS Administration Protocol Metformin HCl 500 mg 10/18/20 17:00 Metformin Hcl 500 Mg Tablet PO BIDWM VIKAS Oxycodone HCl 5 mg 10/16/20 13:34 10/17/20 07:54 Oxycodone Hcl Immed Release 5 Mg Tablet PO 5 mg Q8H PRN Administration Pain, Moderate (Pain Scale 4-6 Pharmacy Consult 1 each 10/16/20 14:56 Consult Rx Perform Med Rec MISCELLANE ONCE PRN Consult order Physical Exam Vital Signs: Vital Signs: Last Vital Signs Temp 98.0 F 10/18/20 08:00 Pulse 79 10/18/20 07:47 Resp 18 10/18/20 07:47 BP 130/88 10/18/20 07:47 Pulse Ox 97 10/18/20 07:47 Body Mass Index 36.9 Const: General: cooperative HENMT: Head: Yes normal to inspection Mouth: Normal oral and palatal mucosa present Eyes: General: appearance normal, both eyes and all related structures Resp: Effort & Inspection: normal respiratory effort Cardio: Rate: regular rate Rhythm: regular rhythm GI: Palpation (GI): Soft to palpation and nontender Results Labs CBC & Chem 7: 10/19/20 05:14 10/16/20 14:45 Labs: Short CBC 10/18/20 Range/Units 06:14 WBC 7.2 (4.8-10.8) X10*3/uL Hgb 15.5 (14.0-18.0) g/dl Hct 47.4 (42-52) % Plt Count 178 (160-400) X10*3/uL Microbiology Microbiology Results: Microbiology 10/16/20 13:03 Finger Gram Stain - Final 10/16/20 13:03 Finger Routine Culture - Final Klebsiella oxytoca 10/16/20 13:03 Finger Anaerobic Culture - Preliminary Culture in progress. Assessment and Plan (1) Finger infection: Status: Acute Would continue Levaquin Total po 6 weeks Levaquin if tolerated concern over osteomyelitis. (2) Diabetes: Status: Acute
[2020-10-18 16:55] LABS: Glucose, Whole Blood 189 mg/dL (60-115)
[2020-10-18] MEDS: Acetaminophen 325 MG TABLET 650 MG PO (16:58)
[2020-10-18] MEDS: metFORMIN HCl 500 MG TABLET PO (16:59)
--- NOTE | 2020-10-18 18:21 | PC.NURSE ---
Patient successfully self-administered insulin x 2. Patient c/o pain at IV site, new #20 placed to R arm. Patient very upset regarding surgical procedure that was pending for this afternoon that he was not aware of. Patient stating I am calling my business lawyer. I'm a grown man, I'm not stupid . This RN notified the patient that the procedure is due to a positive culture that resulted this afternoon. Patient's daughter/HCP also at the bedside. Nursing power plant supervisor spoke to patient and daughter as well. Patient and daughter were eventually understanding of the situation, just upset that there was some miscommunication. Procedure now rescheduled for tomorrow morning due to needing to wait 8 hours after patient last ate, which was around 1300. Patient states that he will leave tomorrow s/p procedure. Ortho PA made aware. No further issues.
[2020-10-18 20:36] LABS: Glucose, Whole Blood 219 mg/dL (60-115)
[2020-10-18] MEDS: Insulin Glargine,Hum.rec.anlog 100 UNIT/ML 10 ML VIAL 10 UNIT SUBCUT (20:52)
--- NOTE | 2020-10-18 20:57 | P.PNOP_ITS ---
Subjective Subjective Date of Service: 10/18/20 Interval history: POD 2 Left hand I&D with Dr Casillas -Patient states the hand is feeling slightly better -No overnight events Physical Exam Vital Signs: Vital Signs: Last Vital Signs Temp 97.2 F 10/18/20 20:00 Pulse 88 10/18/20 20:00 Resp 14 10/18/20 20:00 BP 145/86 H 10/18/20 20:00 Pulse Ox 98 10/18/20 20:00 Body Mass Index 36.9 Const: General: cooperative, healthy appearing and no acute distress Resp: Effort & Inspection: normal respiratory effort and able to speak in complete sentences Cardio: Rate: regular rate Peripheral pulses: Peripheral pulses 2+ throughout GI: Palpation (GI): Soft to palpation Skin: General skin exam: no rashes or lesions noted Extrem: Other: Left hand bloody/purulant discharge along the palmar incision with intact incision over the palmar aspect of the finger. No drainage from f andrea incision. Sensation intact. Progress Note: A&P Assessment and plan (1) Flexor tenosynovitis of finger: Status: Acute Assessment and Plan: Continue IV abx Plan to bring back to OR 10/19/20 for repeat I&D Continue treating diabetes Nutrition Consult to discuss how to manage diet with diabetes ID consult recs: Would continue Levaquin Total po 6 weeks Levaquin if tolerated concern over osteomyelitis. Fall Risk Details Current Medications: Current Medications Generic Name Dose Route Start Last Admin Trade Name Freq PRN Reason Stop Dose Admin Acetaminophen 650 mg 10/16/20 15:15 10/18/20 16:58 Acetaminophen 325 Mg Tablet PO 650 mg Q6H PRN Administration Pain, Mild (Pain Scale 1-3) Levofloxacin 750 mg in 150 mls @ 100 mls/hr 10/17/20 13:00 10/18/20 15:42 Levaquin IV Infused Q24H [facility] Infusion Insulin Glargine 10 unit 10/17/20 21:00 10/18/20 20:52 Insulin Glargine,Hum.Rec.Anlog 100 Unit/Ml 10 Ml Vial SUBCUT 10 unit BEDTIME [facility] Administration Insulin Human Lispro 0 unit 10/16/20 16:30 10/18/20 20:52 Insulin Lispro 100 Unit/Ml 3 Ml Vial SUBCUT 4 unit QIDACHS [facility] Administration Protocol Metformin HCl 500 mg 10/18/20 17:00 10/18/20 16:59 Metformin Hcl 500 Mg Tablet PO 500 mg BIDWM [facility] Administration Oxycodone HCl 5 mg 10/16/20 13:34 10/17/20 07:54 Oxycodone Hcl Immed Release 5 Mg Tablet PO 5 mg Q8H PRN Administration Pain, Moderate (Pain Scale 4-6 Pharmacy Consult 1 each 10/16/20 14:56 Consult Rx Perform Med Rec MISCELLANE ONCE PRN Consult order Time Spent With Patient Time: Total time spent is greater than 50% in coordination of care (as documented) at patient's floor/unit and/or counseling patient: Time with patient: less than 15 minutes
[2020-10-19] VITALS (7 sets, daily range): BP systolic 113–127; BP diastolic 74–84; PULSE 72–78; RESP 15–18; TEMP 35.7–36.4; O2SAT 93–100; BMI 31.4
[2020-10-19 06:01] LABS: MANUAL DIFF FLAG NO
[2020-10-19 06:05] LABS: Basophils Percent Auto 0.5 % (0-2); Eosinophils Absolute Auto 0.2 X10*3/uL (0.0-0.4); Hematocrit 48.2 % (42-52); Hemoglobin 15.8 g/dl (14.0-18.0); Imm Gran Abs Auto 0.02 X10*3/uL (0.00-0.03); Imm Gran Pct Auto 0.2 % (0.0-0.4); Lymphocytes Absolute Auto 3.2 X10*3/uL (1.2-4.9); Mean Corpuscular HGB Conc 32.8 g/dl (31.0-36.0); Mean Corpuscular Hemoglobin 29.9 pg (27.0-33.0); Mean Corpuscular Volume 91.3 fL (80-98); Mean Platelet Volume 12.2 fL (9.4-12.4); Monocytes Absolute Auto 0.9 X10*3/uL (0.1-1.2); Monocytes Percent Auto 11.2 % (2-11); Neutrophils Absolute Auto 3.7 X10*3/uL (2.0-8.3); Neutrophils Percent Auto 46.1 % (45-73); Platelet Count 174 X10*3/uL (160-400); Red Blood Count 5.28 X10*6/uL (4.60-5.80); Red Cell Distribution Width 12.1 % (11.0-16.0); White Blood Count 8.1 X10*3/uL (4.8-10.8)
--- NOTE | 2020-10-19 07:20 | HO.ANESPROP2 ---
[facility] Active Problems Active Problems: All Active Problems (Updated 10/16/20 @ 12:36 by Lori Oakes) Finger infection (Acute) Laceration of scalp (Acute) Increased BMI (Acute) Flexor tenosynovitis of finger (Acute) Past Medical History Medical History Diabetes Increased BMI Family History Family history of problems with anesthesia: No Surgical History Surgical History Finger infection Laceration of scalp History of Problems with Anesthesia: No Social History Social History (Updated 10/16/20 @ 11:51 by Lori Oakes) Housing: Apartment Do you presently have visiting nurse or other home services: No Alcohol intake: never Smoking Status: Never smoker Use of substances other than those prescribed or required for medical reasons: Yes Substance Use Type: Marijuana Substance Use Frequency: Weekly Last Used Substance: Weeks (ago) Last Used Substance Other:: A week ago Currently Displaying Signs/Symptoms of Drug Intoxication Withdrawal: No Any prior treatment program specific to substance use: No Have you been hit, kicked, punched, or otherwise hurt by someone within the past year? If so, by whom?: No Do you feel safe in your current relationship?: No Current Relationship Is there a partner from a previous relationship who is making you feel unsafe now?: No Are you made to feel afraid or neglected: No Are you DNR?: No Advance Directives: No Advance Directives Information Provided: Yes Do you have thoughts of harming others: None Do you have a plan to hurt others: No Plan Recently lost weight without trying: No Nutrition Risks: No Nutritional Risk Poor oral hygiene: No service: No Current occupational status: unemployed Current occupation: right handed. Meds Allergies Allergy/AdvReac Type Severity Reaction Status Date / Time No Known Allergies Allergy Verified 10/15/20 14:13 [No Known Allergies*] Active Medications: Current Medications Generic Name Dose Route Start Last Admin Trade Name Freq PRN Reason Stop Dose Admin Acetaminophen 650 mg 10/16/20 15:15 10/18/20 16:58 Acetaminophen 325 Mg Tablet PO 650 mg Q6H PRN Administration Pain, Mild (Pain Scale 1-3) Levofloxacin 750 mg in 150 mls @ 100 mls/hr 10/17/20 13:00 10/18/20 15:42 Levaquin IV Infused Q24H [facility] Infusion Insulin Glargine 10 unit 10/17/20 21:00 10/18/20 20:52 Insulin Glargine,Hum.Rec.Anlog 100 Unit/Ml 10 Ml Vial SUBCUT 10 unit BEDTIME [facility] Administration Insulin Human Lispro 0 unit 10/16/20 16:30 10/18/20 20:52 Insulin Lispro 100 Unit/Ml 3 Ml Vial SUBCUT 4 unit QIDACHS [facility] Administration Protocol Metformin HCl 500 mg 10/18/20 17:00 10/19/20 07:17 Metformin Hcl 500 Mg Tablet PO Not Given BIDWM [facility] Oxycodone HCl 5 mg 10/16/20 13:34 10/17/20 07:54 Oxycodone Hcl Immed Release 5 Mg Tablet PO 5 mg Q8H PRN Administration Pain, Moderate (Pain Scale 4-6 Pharmacy Consult 1 each 10/16/20 14:56 Consult Rx Perform Med Rec MISCELLANE ONCE PRN Consult order Exam Exam Date and Time: October 19, 2020 0720 Height,Weight and Vital Signs: Height 5 ft 9 in Weight 113.398 kg Last Vital Signs Temp 97.4 F 10/19/20 04:00 Pulse 72 10/19/20 04:00 Resp 16 10/19/20 04:00 BP 127/83 10/19/20 04:00 Pulse Ox 100 10/19/20 04:00 Pertinent Lab Results Pertinent Lab Results: Laboratory Tests 10/16/20 10/16/20 10/16/20 10:29 14:45 14:45 WBC RBC Hgb Hct MCV MCH MCHC RDW Plt Count MPV Immature Gran % (Auto) Neut % (Auto) Lymph % (Auto) [place] % (Auto) Eos % (Auto) Baso % (Auto) Lymph # (Auto) [place] # (Auto) Eos # (Auto) Baso # (Auto) Abs Immat Gran (auto) Absolute Neuts (auto) Absolute Nucleated RBC Nucleated RBC % (auto) Sodium 133 L Potassium 4.7 D Chloride 100 Carbon Dioxide 26 Anion Gap 12 BUN 12 Creatinine 0.82 Estim Creat Clear Calc 130.8 Estimated GFR > 60 POC Glucose 271 H Random Glucose 241 H D Estimat Average Glucose 283 Hemoglobin A1c % 11.5 Calcium 8.8 COVID-19 (VIVI) COVID-19 [employer] 10/16/20 10/16/20 10/16/20 14:45 16:22 20:05 WBC RBC Hgb Hct MCV MCH MCHC RDW Plt Count MPV Immature Gran % (Auto) Neut % (Auto) Lymph % (Auto) [place] % (Auto) Eos % (Auto) Baso % (Auto) Lymph # (Auto) [place] # (Auto) Eos # (Auto) Baso # (Auto) Abs Immat Gran (auto) Absolute Neuts (auto) Absolute Nucleated RBC Nucleated RBC % (auto) Sodium Potassium Chloride Carbon Dioxide Anion Gap BUN Creatinine Estim Creat Clear Calc Estimated GFR POC Glucose 195 H 269 H Random Glucose Estimat Average Glucose Hemoglobin A1c % Calcium COVID-19 (VIVI) Negative COVID-19 [employer] See Note 10/17/20 10/17/20 10/17/20 06:19 07:23 11:29 WBC 8.6 RBC 4.98 Hgb 15.2 Hct 45.3 MCV 91.0 MCH 30.5 MCHC 33.6 RDW 12.3 Plt Count 173 D MPV 12.0 Immature Gran % (Auto) 0.2 Neut % (Auto) 49.5 Lymph % (Auto) 36.6 [place] % (Auto) 10.8 Eos % (Auto) 2.5 Baso % (Auto) 0.4 Lymph # (Auto) 3.1 [place] # (Auto) 0.9 Eos # (Auto) 0.2 Baso # (Auto) 0.0 Abs Immat Gran (auto) 0.02 Absolute Neuts (auto) 4.2 Absolute Nucleated RBC 0.000 Nucleated RBC % (auto) 0.0 Sodium Potassium Chloride Carbon Dioxide Anion Gap BUN Creatinine Estim Creat Clear Calc Estimated GFR POC Glucose 193 H 305 H Random Glucose Estimat Average Glucose Hemoglobin A1c % Calcium COVID-19 (VIVI) COVID-19 [employer] 10/17/20 10/17/20 10/18/20 16:17 20:10 06:14 WBC 7.2 RBC 5.20 Hgb 15.5 Hct 47.4 MCV 91.2 MCH 29.8 MCHC 32.7 RDW 12.2 Plt Count 178 MPV 11.7 Immature Gran % (Auto) 0.3 Neut % (Auto) 45.8 Lymph % (Auto) 39.2 [place] % (Auto) 11.3 H Eos % (Auto) 3.0 Baso % (Auto) 0.4 Lymph # (Auto) 2.8 [place] # (Auto) 0.8 Eos # (Auto) 0.2 Baso # (Auto) 0.0 Abs Immat Gran (auto) 0.02 Absolute Neuts (auto) 3.3 Absolute Nucleated RBC 0.000 Nucleated RBC % (auto) 0.0 Sodium Potassium Chloride Carbon Dioxide Anion Gap BUN Creatinine Estim Creat Clear Calc Estimated GFR POC Glucose 139 H 195 H Random Glucose Estimat Average Glucose Hemoglobin A1c % Calcium COVID-19 (VIVI) [employer] 10/18/20 10/18/20 10/18/20 07:45 11:19 16:45 WBC RBC Hgb Hct MCV MCH MCHC RDW Plt Count MPV Immature Gran % (Auto) Neut % (Auto) Lymph % (Auto) [place] % (Auto) Eos % (Auto) Baso % (Auto) Lymph # (Auto) [place] # (Auto) Eos # (Auto) Baso # (Auto) Abs Immat Gran (auto) Absolute Neuts (auto) Absolute Nucleated RBC Nucleated RBC % (auto) Sodium Potassium Chloride Carbon Dioxide Anion Gap BUN Creatinine Estim Creat Clear Calc Estimated GFR POC Glucose 182 H 276 H 189 H Random Glucose Estimat Average Glucose Hemoglobin A1c % Calcium COVID-19 ([facility]IVI) [employer] 10/18/20 10/19/20 20:26 05:14 WBC 8.1 RBC 5.28 Hgb 15.8 Hct 48.2 MCV 91.3 MCH 29.9 MCHC 32.8 RDW 12.1 Plt Count 174 MPV 12.2 Immature Gran % (Auto) 0.2 Neut % (Auto) 46.1 Lymph % (Auto) 39.0 [place] % (Auto) 11.2 H Eos % (Auto) 3.0 Baso % (Auto) 0.5 Lymph # (Auto) 3.2 [place] # (Auto) 0.9 Eos # (Auto) 0.2 Baso # (Auto) 0.0 Abs Immat Gran (auto) 0.02 Absolute Neuts (auto) 3.7 Absolute Nucleated RBC 0.000 Nucleated RBC % (auto) 0.0 Sodium Potassium Chloride Carbon Dioxide Anion Gap BUN Creatinine Estim Creat Clear Calc Estimated GFR POC Glucose 219 H Random Glucose Estimat Average Glucose Hemoglobin A1c % Calcium COVID-19 (VIVI) COVID-19 Clin Com Airway Mallampati Class: II TM Dist: >3cm Neck ROM: Full Loose/Missing/Broken Teeth: No Heart: RRR Lungs: CTA Assessment and Plan Assessment Anesthesia Assessment: Anesthesia Plan Discussed and Chart Reviewed Final Anesthetic Review NPO: Yes ASA Class: III Final Preanesthetic Review: No Changes in Pt Med Stat, Meds/Allgs Chart Reviewed, Consent Obtained/Reviewed and Anes Risks/Benef Reviewed Patient Risk: Intermediate Procedure Risk: Low Anesthetic Plan Anesthetic Plan: GA Disposition: Standard PACU
[2020-10-19 07:41] LABS: Glucose, Whole Blood 175 mg/dL (60-115)
--- NOTE | 2020-10-19 07:59 | P.OP_ITS ---
Operative Note Operative Note Date of Service: 10/19/20 Narrative: Operative Note Narrative: Preop diagnosis: Left middle finger flexor tenosynovitis Postop diagnosis: Same Procedure: Left middle finger and hand I and D Surgeon: Candace Casillas MD Anesthesia: Mac plus regional block Findings: Wound improving, less creamy looking drainage, more serosanguineous appearing Implants: None Tourniquet time: 12 minutes EBL: 5.0 ml Specimen: None Drains: None Complications: None Disposition: Brought to the recovery room in stable condition Plan: Admit back to floor. I would prefer that the patient stay at least another 24 hours, but the patient is pretty adamant that he would like to leave today. He must have some kind of follow-up with an internal medicine physician regarding management of his newly diagnosed diabetes. Continue Levaquin for least 10 days, or per Infectious Disease recommendations. Follow-up in 2-3 days in our clinic wound check. It is a patent 2 chew removal in 10-14 days if all is going well. Indications: The patient is a 50 year old newly diagnosed diabetic with a left hand infection and left middle finger flexor tenosynovitis status post 2 previous I and D's. He has grown out Klebsiella oxytoca and is now on antib iotics to which this organism is sensitive. He is also under better control of his diabetes, and has undergone some Education about how to manage his diabetes while at inpatient. . The risks and benefits of operative treatment, including but not limited to risk of damage to blood vessels, nerves, tendons, infection, recurrence, persistent pain or numbness, incomplete resolution of preoperative s ymptoms, or need for further surgery were discussed with the patient and they wished to proceed with surgery. Procedure: Once consent was obtained patient was brought back to the operating suite and placed in the operating table in a supine position. . Anesthesia was administered by the anesthesia team. A tourniquet was applied to the proximal aspect of the left upper extremity and the limb was prepped and draped in a standard surgical fashion. The limb was elevated exsanguinated with Esmarch bandage and the tourniquet inflated to 250 mm of mercury for a total tourniquet time of 12 minutes. Sutures were removed from the wound over the A1 ivy and the wound over the middle and distal phalanxes of the left middle finger. I then dissected down to the flexor tendon sheath in both areas. The drainage appears to be more serosanguineous than grossly purulent. This is an improvement. The hand overall is soft with no clinical evidence of worsening infection today. Both wounds were copiously irrigated with normal saline. The more distal wound was debrided of nonviable tissue using tenotomy scissors and a 15. Blade. I then passed an 18 gauge Angiocath beneath the A2 ivy and flushed out the flexor tendon sheath in a proximal to distal direction with normal saline. Similarly I flushed out beneath the A4 ivy in a proximal to distal direction. I did not appreciate any gross extension of the wound to the D IP joint. The wounds were again copiously irrigated with normal saline. The skin edges were then reapproximated loosely using some 5 0 Prolene suture. The tourniquet was deflated and hemostasis obtained with a brief period of local pressure. A digital block was performed with some 0.25% plain Marcaine, and a sterile dressing was applied. The patient appears to have tolerated the procedure well and with no complications. All digits were well vascularized conclusion of the case.
--- NOTE | 2020-10-19 07:59 | MHC.SHP ---
Pre-Procedural Eval Section B Chief Complaint: Left middle finger flexor tenosynovitis Allergies: Allergies Allergy/AdvReac Type Severity Reaction Status Date / Time No Known Allergies Allergy Verified 10/15/20 14:13 [No Known Allergies*] Plan I have reviewed the history and physical and performed a pertinent physical examination on my patient. No changes have occurred unless specified.
[2020-10-19 11:23] LABS: Glucose, Whole Blood 155 mg/dL (60-115)
[2020-10-19] MEDS: Insulin Lispro 100 UNIT/ML 3 ML VIAL SUBCUT (12:00)
[2020-10-19] MEDS: levoFLOXacin/D5W 750 MG/150 ML PIGGYBACK 100 MG IV (13:12)
--- NOTE | 2020-10-19 13:47 | MHC.CM.PN ---
PLAN IS I&D TODAY AND EVALUATE FOR DISCHARGE.
--- NOTE | 2020-10-19 14:14 | P.DS_ITS ---
DS: Providers Provider Date of Service: 10/21/20 Date of admission: 10/16/20 13:31 Primary care physician: None Physician Consults: 10/16/20 13:32 Consult to Hospitalist Stat Consulting Provider: Hospitalist Reason For Exam: Uncontrolled newly diagnosed DM glucose 300+ Consult to Infectious Diseases Stat Consulting Provider: Nakia Tenorio Reason for consultation: left index finger flexor tendon infection DS: Diagnosis Discharge Diagnosis (1) Finger infection: Status: Acute Problem details: This is a 50-year-old gentleman who was seen for an infection in the left middle finger which extended into the flexor tendons and deep space of the palm. He was admitted to the hospital for IV antibiotics and diabetes management. DS: Medications Discharge Medications Home Medications: Previous Rx's Medication Instructions Recorded metformin 500 mg PO BID 30 Days #60 tab 10/02/20 acetaminophen 650 mg PO Q6H PRN 30 Days #240 tab 10/19/20 alcohol swabs [Alcohol Prep Pads] 1 pad TOPICAL QIDACHS #100 ea 10/19/20 blood sugar diagnostic [FreeStyle #100 ea 10/19/20 Lite Strips] blood-glucose meter [FreeStyle #1 ea 10/19/20 Lite Meter] insulin glargine [Lantus Solostar 10 unit SUBCUT QPM 30 Days #3 ml 10/19/20 U-100 Insulin] lancets [FreeStyle Lancets] #100 ea 10/19/20 levofloxacin 750 mg PO Q24H 42 Days #42 tab 10/19/20 oxycodone 5 mg PO Q8H PRN 7 Days #21 tab 10/19/20 DS: Summary Hospital Course Hospital Course: The patient underwent a successful I and D of the left middle finger, was transferred to PACU and then to the floor to recover. During their stay, their vitals were stable, afebrile at 96.3. Labs were unremarkable, white blood cell count 8.1, H/H 15.8/48.2. He was continued on IV Levaquin until discharge were he was switched to p.o. Levaquin 750 mg once a day x6 weeks. Postop day 2 he was brought to the operating room again for another washout and plan was to be discharged home with follow-up October 21 in our office. Time Spent with Patient Time attestation: Total time spent providing and/or coordinating discharge services: Discharge coordination time: Less than 30 minutes Quality: Stroke Does the patient have a stroke diagnosis?: No Physical Exam Vital Signs: Vital Signs: Last Vital Signs Temp 96.3 F L 10/19/20 11:31 Pulse 75 10/19/20 11:31 Resp 18 10/19/20 11:31 BP 121/81 10/19/20 11:31 Pulse Ox 97 10/19/20 11:31 Body Mass Index 31.4 Const: General: cooperative, healthy appearing and no acute distress Resp: Effort & Inspection: normal respiratory effort and able to speak in complete sentences Cardio: Rate: regular rate Peripheral pulses: Peripheral pulses 2+ throughout GI: Palpation (GI): Soft to palpation Skin: General skin exam: no rashes or lesions noted Extrem: Other: Left hand bandage intact. Sensation intact. DS: Data Data Completed and Pending Labs on day of discharge: Laboratory Results - last 24 hr 10/18/20 10/18/20 10/19/20 16:45 20:26 05:14 WBC 8.1 RBC 5.28 Hgb 15.8 Hct 48.2 MCV 91.3 MCH 29.9 MCHC 32.8 RDW 12.1 Plt Count 174 MPV 12.2 Immature Gran % (Auto) 0.2 Neut % (Auto) 46.1 Lymph % (Auto) 39.0 [place] % (Auto) 11.2 H Eos % (Auto) 3.0 Baso % (Auto) 0.5 Lymph # (Auto) 3.2 [place] # (Auto) 0.9 Eos # (Auto) 0.2 Baso # (Auto) 0.0 Abs Immat Gran (auto) 0.02 Absolute Neuts (auto) 3.7 Absolute Nucleated RBC 0.000 Nucleated RBC % (auto) 0.0 POC Glucose 189 H 219 H 10/19/20 10/19/20 07:27 11:11 WBC RBC Hgb Hct MCV MCH MCHC RDW Plt Count MPV Immature Gran % (Auto) Neut % (Auto) Lymph % (Auto) [place] % (Auto) Eos % (Auto) Baso % (Auto) Lymph # (Auto) [place] # (Auto) Eos # (Auto) Baso # (Auto) Abs Immat Gran (auto) Absolute Neuts (auto) Absolute Nucleated RBC Nucleated RBC % (auto) POC Glucose 175 H 155 H Preliminary micro results at discharge 10/16/20 13:03 Anaerobic Culture - Preliminary Finger Culture in progress. Discharge Plan Discharge Patient Disposition: Home, Self-Care Discharge Diagnosis: Finger infection , uncontrolled diabetes Referrals: Jax Hill PA-C [Physician Access Clerk] - None (Wednesday10/21/20 @ 11:00am ) Candace Casillas MD [Physician] - 1 Week Discharge Medications: New acetaminophen 325 mg Tablet 650 mg PO Q6H PRN (Reason: Pain, Mild (Pain Scale 1-3)) 30 Days Qty: 240 RF: 0 oxycodone 5 mg Tablet 5 mg PO Q8H PRN (Reason: Pain, Moderate (Pain Scale 4-6) 7 Days Qty: 21 RF: 0 levofloxacin 750 mg tablet 750 mg PO Q24H 42 Days Qty: 42 RF: 0 (DME) blood-glucose meter [FreeStyle Lite Meter] Kit See Rx Instructions .ROUTE .MEDSUPPLY Qty: 1 RF: 0 (DME) FreeStyle Lite Strips Strip See Rx Instructions .ROUTE .MEDSUPPLY Qty: 100 RF: 0 (DME) lancets [FreeStyle Lancets] 28 gauge misc See Rx Instructions .ROUTE .MEDSUPPLY Qty: 100 RF: 0 alcohol swabs [Alcohol Prep Pads] Pads, Medicated 1 pad topical QIDACHS Qty: 100 RF: 0 Lantus Solostar U-100 Insulin 100 unit/mL (3 mL) insulin pen 10 unit subcut QPM 30 Days Qty: 3 RF: 0 Continued metformin 500 mg tablet 500 mg PO BID 30 Days Qty: 60 RF: 0 Discontinued amoxicillin-pot clavulanate [Augmentin] 875-125 mg tablet 1 tab PO Q12H 7 Days Qty: 14 RF: 0 hydrocodone-acetaminophen 5-325 mg tablet 1 - 2 tab PO Q6H PRN (Reason: pain) Qty: 20 RF: 0 No Action (DME) insulin syringe-needle U-100 [[facility]ocate Syringes] 0.3 mL 29 gauge x 1/2 syringe See Rx Instructions .ROUTE .MEDSUPPLY Qty: 100 RF: 1 Discharge Orders: Discharge Order (Routine); Ordered 10/19/20 Ordered By: Jax Hill Diet: diabetic diet Activity on Discharge: No heavy lifting Stand Alone Forms: Patient Portal Discharge page Care Plan Goals: Restore function of left hand, monitor diabetes Health Concerns: Diabetes management You have been ordered a Freestyle lite meter with lancets, strips and alcohol wipes. You have also been ordered an insulin, Lantus, solostar pen for administration at bedtime. Check Blood sugars four times daily before meals and insulin administration. Take medication as prescribed. Follow up with primary care provider for further teaching, dosing and refills of your medications. Plan of Treatment: Continue Antibiotics Diabetes management Assessment: * Keep bandage to left hand clean, dry and intact at all times * No lifting with left hand * Move fingers as tolerated * Continue Antibiotics as directed * Monitor sugar levels at each meal and every morning * Take Insulin as directed and adjust as needed based on sugar levels * monitor sugar intake Call the [phone] with any questions or concerns regarding hand or diabetes management or go straight to the ED if you have fever, dizziness, confusion, sweats/chills. Discharge Date/Time: 10/19/20 15:00
--- NOTE | 2020-10-20 11:50 | HO.POSTANES ---
Post Anesthesia Evaluation Post Anesthesia Evaluation Anesthesia: General LMA Mental Status: Awake Pain Control: Satisfactory Nausea/Vomiting: None Hydration: Adequate Anesthesia-Related Issues: No Anes. Related Issues
== END 2020-10-19 15:00 | disposition home or self-care (01) | DRG 316 ==
LOC: HO.S3 14:53
PROVIDERS: Nurse Practitioner Acute Care; Physician Assistant; Admitting Provider Orthopaedic Surgery; Visit Provider Orthopaedic Surgery
PROC: 0L980ZZ Drainage of Left Hand Tendon, Open Approach (ICD-10-PCS; principal; 2020-10-16 12:00)
DX: M65.142 Other infective (teno)synovitis, left hand (principal); E11.65 Type 2 diabetes mellitus with hyperglycemia; Z20.822 Contact with and (suspected) exposure to COVID-19; Z79.4 Long term (current) use of insulin; Z79.899 Other long term (current) drug therapy
CPT/HCPCS: 36415; 80048; 82947; 83036; 85025; 87071; 87073; 87077; 87186; 87205; 87635; J1956; J2250; J2405; J3010

== ENCOUNTER → 2020-10-21 11:03 | Outpatient (BNVA) | payer MEDICAID, SELFPAY | PROVIDERS: Visit Provider Physician Assistant | DX: M65.9 Synovitis and tenosynovitis, unspecified (principal); L08.9 Local infection of the skin and subcutaneous tissue, unspecified; E11.9 Type 2 diabetes mellitus without complications | CPT/HCPCS: 99212 ==

== ENCOUNTER → 2020-10-25 12:33 | Outpatient (BNVA) | payer MEDICAID, SELFPAY | PROVIDERS: Visit Provider Physician Assistant | DX: M65.9 Synovitis and tenosynovitis, unspecified (principal); L08.9 Local infection of the skin and subcutaneous tissue, unspecified; E11.9 Type 2 diabetes mellitus without complications | CPT/HCPCS: 99212 ==

== ENCOUNTER → 2020-10-29 11:13 | Outpatient (BNVA) | payer OTHER, SELFPAY | PROVIDERS: Visit Provider Orthopaedic Surgery | DX: M65.9 Synovitis and tenosynovitis, unspecified (principal); E11.9 Type 2 diabetes mellitus without complications | CPT/HCPCS: 99212 ==

== ENCOUNTER → 2020-11-18 14:18 | Outpatient (BNVA) | payer OTHER, SELFPAY | PROVIDERS: Visit Provider Internal Medicine | DX: L08.9 Local infection of the skin and subcutaneous tissue, unspecified (principal) | CPT/HCPCS: 99212 ==

== ENCOUNTER 2022-08-10 10:53 | Outpatient (REF) | payer OTHER, SELFPAY ==
[2022-08-10 12:06] LABS: Hematocrit 49.1 % (42.0-52.0); Hemoglobin 16.3 g/dl (14.0-18.0); Mean Corpuscular HGB Conc 33.2 g/dl (31.0-36.0); Mean Corpuscular Hemoglobin 30.6 pg (27.0-33.0); Mean Corpuscular Volume 92.1 fL (80.0-98.0); Mean Platelet Volume 12.2 fL (9.4-12.4); Platelet Count 168 X10*3/uL (160-400); Red Blood Count 5.33 X10*6/uL (4.60-5.80); White Blood Count 7.6 X10*3/uL (4.8-10.8)
[2022-08-10 12:44] LABS: Alanine Aminotransferase 25 U/L (0-40); Albumin Level 4.5 g/dL (3.5-5.0); Alkaline Phosphatase 64 U/L (39-117); Anion Gap 12 (12-20); Aspartate Amino Transferase 27 U/L (5-37); Bilirubin Total 1.3 mg/dL (0.0-1.0); Blood Urea Nitrogen 13 mg/dL (9-16); Calcium 9.6 mg/dL (8.4-10.2); Carbon Dioxide 31 mmol/L (22-29); Chloride 100 mmol/L (96-108); Cholesterol 173 mg/dL; Estimated Glomerular Filt Rate > 60; Glucose Fasting 184 mg/dL (60-99); HDL Cholesterol 48 mg/dL; LDL Cholesterol Calculated 112 mg/dl; Sodium 138 mmol/L (135-145); Total Protein 8.3 g/dL (6.5-8.0); Triglycerides 67 mg/dL
[2022-08-10 13:00] LABS: TSH reflex Free T4 1.28 uIU/mL (0.32-4.0)
== END 2022-08-10 10:54 | disposition home or self-care (01) ==
LOC: HO.LAB 10:53
PROVIDERS: PCP Hospitalist; Visit Provider Hospitalist
DX: Z00.00 Encounter for general adult medical examination without abnormal findings (principal)
CPT/HCPCS: 36415; 80053; 80061; 84443; 85027

== ENCOUNTER 2023-06-28 13:33 | Outpatient (AMB) | payer OTHER, SELFPAY ==
[2023-06-28 13:38] VITALS: BP 124/88; PULSE 77; O2SAT 98; BMI 31.9
--- NOTE | 2023-06-28 13:38 | A.OFFPC_ITS ---
Vital Signs 06/28/23 13:38 Height 5 ft 9 in Weight 216 lb 6 oz BMI 31.9 BP 124/88 Blood Pressure Location Lt brachial Position Sitting Pulse 77 Pulse Source Pulse Oximeter Pulse Oximetry (%) 98 Oxygen Delivery Method Room Air Intake Visit Reasons: Transfer of care from [facility] [employer] Supervisor Required: No Accompanied by: Self / Same As Patient Allergies No Known Allergies [No Known Allergies*] Allergy (Verified 06/28/23 13:53) Medication List - Last Reconciled 06/28/23 by Lyndon Santana MD flash glucose scanning reader (FreeStyle Jackelin 2 [place]) As directed FreeStyle Jackelin 2 Sensor (flash glucose sensor) As directed NS Lantus Solostar U-100 Insulin (insulin glargine) 15 units (0.15 mL) subcut QPM 30 days NS metformin 500 mg PO TIDWMEAL Tobacco use date assessed: 06/28/23 Dental Screening Dental Screen Date: 06/28/23 Did you have a dental visit in the last 12 months?: Yes Did you have a dental problem in the last 6 months where you did not have access to dental care?: No Was dental information given to patient?: Patient has dentist HPI Transfer of care from [facility] HPI Details Patient comes in today for his follow up visit - is transferring over from Jennifer Salomon, who is no longer with the practice He was last seen in August 2022 States that he currently feels okay He denies any headaches or dizziness Denies any chest pains, no SOB No nausea/vomiting, no abdominal pain No change in bowel habits noted Needs his Rx as well as his Freestyle Jackelin sensor refilled Adds that he has been experiencing some increased pain over the distal joint of his left middle finger lately - denies any recent injury or trauma to the finger but states that this finger had an infection a few years ago that required surgical drainage [facility] Medical History (Updated 06/28/23 @ 14:17 by Lyndon Santana MD) Obesity (BMI 30-39.9) Diabetes mellitus Surgical History (Updated 06/28/23 @ 14:23 by Lyndon Santana MD) Laceration of scalp Finger infection Family History Mother Asthma Hypertension Hyperlipemia Diabetes Cardiovascular disease Cancer No family history of mental disorder Father Thyroid disease No family history of mental disorder Social History Housing: Apartment Do you presently have visiting nurse or other home services: No Alcohol intake: never Patient Tobacco Use Status: Never used Tobacco e-Cigarette/Vaping Use: Never Used Second Hand Smoke Exposure: No Substance Use Type: Marijuana service: No Current occupational status: unemployed and disabled Current occupation: right handed. Current occupational exposures/hazards: No Cognitive needs: No Hearing needs: No Vision needs: No Questionnaire PHQ-9 Over the last 2 weeks, how often have you been bothered by any of the following problems? 1. Little interest or pleasure in doing things: not at all 2. Feeling down, depressed, or hopeless: not at all 3. Trouble falling or staying asleep, or sleeping too much: not at all 4. Feeling tired or having little energy: not at all 5. Poor appetite or overeating: not at all 6. Feeling bad about yourself - or that you are a failure or have let yourself or your family down: not at all 7. Trouble concentrating on things, such as reading the newspaper or watching television: not at all 8. Moving or speaking so slowly that other people could have noticed. Or the opposite - being so fidgety or restless that you have been moving around a lot more than usual: not at all 9. Thoughts that you would be better off or of hurting yourself in some way: not at all Total score: 0 Depression Screening Interpretation: Negative Depression Screening Done: Yes 12914 - PHQ-9 Billing: Yes Source: Developed by Drs. Stephen Chun, Ronit Aldridge, Mikey Peterson and colleagues, with an educational xioa from [employer]. Thrive Questionnaire Date Thrive assessed: 06/28/23 I am a: Patient What is your living situation today?: I have a steady place to live Within the past 12 months, did the food you bought not last and you didn't have the money to get more?: Never true Within the past 12 months, did you worry whether your food would run out before you got money to buy more?: Never true Do you have trouble paying for medicines?: No Do you have trouble getting transportation to medical appointments?: No Do you have trouble paying your heating and electricity bill?: No Do you have trouble taking care of your child, family member or friend?: No Do you have trouble with day-to-day activities such as bathing, preparing meals, shopping, managing finances, etc.?: No Are you currently unemployed and looking for a job?: No Are you interested in more education?: No Please select the resources that you would like help with: None Currently or been in a relationship where the following occur: no concerns reported THRIVE Score: 0 AUDIT C Alcohol Use Questionnaire (AUDIT-C) 1. How often do you have a drink containing alcohol?: Never 3. How often do you have six or more drinks on one occasion?: Never Total Score: 0 Score Reviewed/Action Taken: Yes SHOAIB-7 AMB Questionnaire SHOAIB-7 Date SHOAIB - 7 assessed: 06/28/23 Feeling nervous, anxious, or on edge: 0 = Not at all Not being able to stop or control worryin = Not at all Worrying too much about different things: 0 = Not at all Trouble relaxin = Not at all Being so restless that it is hard to sit still: 0 = Not at all Becoming easily annoyed or irritable: 0 = Not at all Feeling afraid as if something awful might happen: 0 = Not at all Total SHOAIB-7 score (0-4 normal; 5-9 mild; 10-14 moderate; 15-21 severe): 0 Source: Developed by Drs. Stephen Chun, Ronit Aldridge, Mikey Peterson and colleagues, with an educational xiao from [employer]. Review of Systems Const Denies chills, Denies fatigue, Denies fever(s) and Denies headache(s) ENT Denies dysphagia, Denies dizziness, Denies otalgia, Denies headache(s), Denies neck pain, Denies odynophagia and Denies sore throat Card Denies chest pain, Denies palpitations and Denies dyspnea Resp Denies cough and Denies dyspnea GI Denies abdominal pain, Denies constipation, Denies dysphagia, Denies heartburn, Denies diarrhea, Denies nausea, Denies odynophagia and Denies vomiting Denies difficulty urinating, Denies dysuria, Reports nocturia and Reports urinary frequency (lately) Musc Denies back pain, Reports arthralgias (of the distal joint of the left 3rd finger) and Denies neck pain Skin/Breast Denies rash Neuro Denies dizziness and Denies headache(s) Endo Denies fatigue and Denies palpitations Physical exam (Primary Care) Vital Signs: Last Vital Signs Pulse 77 06/28/23 13:38 BP 124/88 06/28/23 13:38 Pulse Ox 98 06/28/23 13:38 Oxygen Delivery Method Room Air 06/28/23 13:38 BMI result Body Mass Index 31.9 Tobacco/Smoking Status: Tobacco use Status Tobacco use date assessed 06/28/23 06/28/23 13:40 Patient Tobacco Use Status Never used Tobacco 06/28/23 13:40 e-Cigarette/Vaping Use Never Used 06/28/23 13:40 PHQ-9: PHQ-9 Score PHQ-9: Total score 0 06/28/23 13:40 Depression Screening Interpretation: Negative Thrive Assessment: Date of Thrive Assessment Date Thrive assessed 06/28/23 06/28/23 13:40 Currently or been in a relationship where the following occur: no concerns reported Const General: no acute distress and alert HENMT Ears: TM's normal bilaterally and EAC's normal Throat: Yes posterior oropharynx normal and Yes tonsils normal (no TP congestion) Neck Neck: Yes no lymphadenopathy and Yes supple Resp Auscultation: clear to auscultation bilaterally, no rales and no wheezes Cardio Rate: regular rate Rhythm: regular rhythm Heart sounds: no murmurs GI Palpation (GI): Soft to palpation and nontender Auscultation: normal bowel sounds General: Yes no CVA tenderness Back/Spine/Pelvis Back: no CVA tenderness Skin Rashes: no rashes Extrem General: Yes no clubbing, cyanosis or edema Left upper extremity: hand ((+) tenderness and mild swelling of the DIP of the L 3rd finger) Results AMB Hemoglobin A1c AMB Hemoglobin A1c 9.4 % Last Edit by Marixa Melton on 06/28/23 13:58 Assessment and Plan Assessment & Plan (1) Diabetes mellitus: Code(s): E11.9 - Type 2 diabetes mellitus without complications Qualifiers: Diabetes mellitus type: type 2 Diabetes mellitus residential insulin use: with residential use Diabetes mellitus complication status: without complication Qualified Code(s): E11.9 - Type 2 diabetes mellitus without complications; Z79.4 - retirement (current) use of insulin Plan: In-office HgbA1c done today is at 9.4%; was previously at 7.6% when last checked in August 2022 - goal is at least <7.0% Reinforced diabetic diet Will have patient increase his Lantus to 20 units Q HS - states that he has been taking 10 units daily instead of 15 units as he was apparently never instructed to increase his dose to 15 units before Will also increase his Metformin from 500 mg TID to 1000 mg BID Will have patient recheck his labs, fasting lipids and HgbA1c in 3 months for follow up Current recommendations also include statin and BOOGIE or ARB for renoprotection but will wait and see how his labs are in a few months before implementing these (2) Pain involving joint of finger of left hand: Code(s): M25.542 - Pain in joints of left hand Plan: Reports that he has been experiencing frequent pain and some swelling of the DIP of his left middle (3rd) finger lately - relates that this was the finger that had an infection a few years ago in 2020 that required an I & D and Abx Tx Will send him for x-rays of the left middle finger SHE[place] for further evaluation (3) Obesity (BMI 30-39.9): Code(s): E66.9 - Obesity, unspecified Plan: Reinforced diet/exercise as tolerated/lose weight Plan Follow up in 3 months Orders: Orders AMB Hemoglobin A1c Today Z13.9 - Encounter for screening, unspecified Complete Blood Count Auto Diff 3 Months D64.9 - Anemia, unspecified Comprehensive [place]. Panel Fast 3 Months E78.00 - Pure hypercholesterolemia, unspecified TSH reflex Free T4 3 Months E78.00 - Pure hypercholesterolemia, unspecified Hemoglobin A1c 3 Months E11.9 - Type 2 diabetes mellitus without complications XR finger LT min 2V Today M79.645 - Pain in left finger(s) Lipid Panel 3 Months E78.00 - Pure hypercholesterolemia, unspecified UA CC w/rflx Micro + Cult 3 Months R30.0 - Dysuria Microalbumin, Random (w Creat) 3 Months E11.9 - Type 2 diabetes mellitus without complications Vitamin D 25-OH Total 3 Months E55.9 - Vitamin D deficiency, unspecified Medications: Changed From Lantus Solostar U-100 Insulin (insulin glargine) 15 units (0.15 mL) subcut QPM 30 days 15 mL 5RF NS E11.9 - Type 2 diabetes mellitus without complications To Lantus Solostar U-100 Insulin (insulin glargine) 20 units (0.2 mL) subcut QPM 30 days 6 mL 5RF NS E11.9 - Type 2 diabetes mellitus without complications From metformin 500 mg PO TIDWMEAL 90 tabs 4RF E11.9 - Type 2 diabetes mellitus without complications To metformin 1,000 mg PO BID 30 days 60 tabs 5RF E11.9 - Type 2 diabetes mellitus without complications Refilled FreeStyle Jackelin 2 Sensor (flash glucose sensor) As directed 6 ea 5RF NS E11.9 - Type 2 diabetes mellitus without complications Coding Level of Care Code Est Pt Level 4 (33871) Diagnoses Type 2 diabetes mellitus without complication, with long-term current use of insulin E11.9; Z79.4 Diabetes mellitus type: type 2 Diabetes mellitus superintendent [employer] insulin use: with superintendent [employer] use Diabetes mellitus complication status: without complication Pain involving joint of finger of left hand M25.542 Obesity (BMI 30-39.9) E66.9
== END 2023-06-28 14:17 | disposition home or self-care (01) ==
PROVIDERS: PCP Hospitalist; Visit Provider Internal Medicine
DX: E11.9 Type 2 diabetes mellitus without complications (principal); Z79.4 Long term (current) use of insulin; M25.542 Pain in joints of left hand
CPT/HCPCS: 83036; 99214

== ENCOUNTER 2023-06-28 14:23 | Outpatient (REF) | payer OTHER, SELFPAY ==
--- NOTE | ~2023-06-28 | XR_ITS ---
EXAMINATION: XR FINGER, LEFT CLINICAL INFORMATION: increased pain and swelling of the DIP of the left middle (3rd) finger COMPARISON: Left hand October 07, 2020. Left middle digit October 02, 2020. TECHNIQUE: Frontal view of the left hand. 2 cone-down views of the left middle digit FINDINGS: DIP joint is held in flexion. An extensor tendon injury can therefore not be excluded. There is no fracture. No dislocation. No significant degenerative change. No focal bone lesion or abnormal periosteal reaction. 1 cm round corticated osseous density distal to the ulnar styloid of the wrist is chronic. XR/XR finger LT min 2V IMPRESSION: DIP joint of the middle digit is held in flexion. An extensor tendon injury can therefore not be excluded. There is no acute osseous abnormality.
== END 2023-06-28 14:24 | disposition home or self-care (01) ==
LOC: HO.XRAY 14:23
PROVIDERS: PCP Internal Medicine; Visit Provider Internal Medicine
DX: M79.645 Pain in left finger(s) (principal)
CPT/HCPCS: 73140

== ENCOUNTER 2023-09-27 10:40 | Outpatient (REF) | payer OTHER, SELFPAY ==
[2023-09-27 10:58] LABS: MANUAL DIFF FLAG NO
[2023-09-27 11:14] LABS: Basophils Absolute Auto 0.1 X10*3/uL (0.0-0.2); Basophils Percent Auto 0.7 % (0-2); Eosinophils Absolute Auto 0.2 X10*3/uL (0.0-0.4); Hematocrit 49.1 % (42.0-52.0); Hemoglobin 16.3 g/dl (14.0-18.0); Imm Gran Abs Auto 0.02 X10*3/uL (0.00-0.03); Imm Gran Pct Auto 0.3 % (0.0-0.4); Lymphocytes Absolute Auto 2.5 X10*3/uL (1.2-4.9); Lymphocytes Percent Auto 32.9 % (20-40); Mean Corpuscular HGB Conc 33.2 g/dl (31.0-36.0); Mean Corpuscular Hemoglobin 30.2 pg (27.0-33.0); Mean Corpuscular Volume 90.9 fL (80.0-98.0); Monocytes Absolute Auto 0.6 X10*3/uL (0.1-1.2); Monocytes Percent Auto 8.3 % (2-11); Neutrophils Absolute Auto 4.2 x10*3/uL (2.0-8.3); Neutrophils Percent Auto 54.8 % (45-73); Platelet Count 162 X10*3/uL (160-400); Red Cell Distribution Width 12.1 % (11.0-16.0); White Blood Count 7.6 X10*3/uL (4.8-10.8)
[2023-09-27 11:15] LABS: Appearance Urine Clear; Color Urine Dark Yellow; Glucose Urine UA 100 mg/dL (Negative); Leukocyte Esterase Urine Large (3+) (Negative); Nitrite Urine Negative (Negative); PH 6.5 (5.0-9.0); UMIC TRIGGER UACC YES; Urine Blood Negative (Negative); Urine Ketones Negative (Negative); Urine Protein Negative (Neg-Trace)
[2023-09-27 11:19] LABS: Bacteria Urine None Seen (None Seen); Hyaline Casts Urine 0-2 /LPF (0-2); RBC Urine 0-2 /HPF (0-2); UACC Culture Trigger YES; WBC Urine 21-50 /HPF (0-5)
[2023-09-27 11:27] LABS: Estimated Average Glucose 197 mg/dL; Hemoglobin A1c % 8.5 % (<6.0)
[2023-09-27 11:41] LABS: Microalbum/Creatinine Ratio Ur 14.7 ug/mg cr (<30)
[2023-09-27 11:51] LABS: Alanine Aminotransferase 31 U/L (0-40); Albumin Level 4.3 g/dL (3.5-5.0); Alkaline Phosphatase 66 U/L (39-117); Anion Gap 11 (12-20); Aspartate Amino Transferase 30 U/L (5-37); Blood Urea Nitrogen 9 mg/dL (9-16); Calcium 9.9 mg/dL (8.4-10.2); Carbon Dioxide 32 mmol/L (22-29); Chloride 97 mmol/L (96-108); Cholesterol 186 mg/dL (<200); Estimated Glomerular Filt Rate > 60; Glucose Fasting 270 mg/dL (60-99); HDL Cholesterol 40 mg/dL (>40); LDL Cholesterol Calculated 129 mg/dL (<100); Potassium 4.8 mmol/L (3.3-5.1); Sodium 135 mmol/L (135-145); Total Protein 8.4 g/dL (6.5-8.0); Triglycerides 87 mg/dL (<150)
[2023-09-27 12:08] LABS: TSH reflex Free T4 1.78 uIU/mL (0.32-4.0); Vitamin D 25-OH Total 15.3 ng/mL (>30)
== END 2023-09-27 10:41 | disposition home or self-care (01) ==
LOC: HO.LAB 10:40
PROVIDERS: PCP Internal Medicine; Visit Provider Internal Medicine
DX: E55.9 Vitamin D deficiency, unspecified (principal); D64.9 Anemia, unspecified; E11.9 Type 2 diabetes mellitus without complications; E78.00 Pure hypercholesterolemia, unspecified; R30.0 Dysuria
CPT/HCPCS: 36415; 80053; 80061; 81001; 82043; 82306; 82570; 83036; 84443; 85025; 87086

== ENCOUNTER 2023-09-29 12:17 | Outpatient (AMB) | payer OTHER, SELFPAY ==
--- NOTE | 2023-09-29 12:37 | A.OFFPC_ITS ---
Vital Signs 09/29/23 12:43 Height 5 ft 9 in Weight 213 lb 2 oz BMI 31.5 BP 114/82 Blood Pressure Location Lt brachial Position Sitting Pulse 80 Pulse Source Pulse Oximeter Pulse Oximetry (%) 99 Oxygen Delivery Method Room Air Intake Visit Reasons: DM, uncontrolled Supervisor Correspondence Section Required: No Accompanied by: Significant Other Allergies No Known Allergies (No Known Allergies*) Allergy (Verified 03/03/25 06:38) Medication List - Last Reconciled 09/29/23 by Lyndon Santana MD flash glucose scanning reader (FreeStyle Jackelin 2 [place]) As directed FreeStyle Jackelin 2 Sensor (flash glucose sensor) As directed NS Lantus Solostar U-100 Insulin (insulin glargine) 20 units (0.2 mL) subcut QPM 30 days NS metformin 1,000 mg PO BID 30 days Tobacco use date assessed: 06/28/23 Dental Screening Dental Screen Date: 06/28/23 HPI DM, uncontrolled HPI Details Patient comes in today for his follow up visit States that he has increased pain over the distal IP joint of his left middle finger and is unable to fully extend his finger - recalls that he had an infection in this area a few years ago that required surgical drainage Feels that his finger is starting to flare up again He feels okay otherwise and denies any headaches or dizziness Denies any chest pains, no SOB No nausea/vomiting, no abdominal pain No change in bowel habits noted He had his follow up labs done a couple of days ago - to discuss his results [facility] Medical History (Updated 03/03/25 @ 14:34 by Lyndon Santana MD) Overweight (BMI 25.0-29.9) Pure hypercholesterolemia Obesity (BMI 30-39.9) Diabetes mellitus Surgical History Laceration of scalp Finger infection Family History Mother Asthma Hypertension Hyperlipemia Diabetes Cardiovascular disease Cancer No family history of mental disorder Father Thyroid disease No family history of mental disorder Social History Housing: Apartment Do you presently have visiting nurse or other home services: No Alcohol intake: never Patient Tobacco Use Status: Never used Tobacco e-Cigarette/Vaping Use: Never Used Second Hand Smoke Exposure: No Substance Use Type: Marijuana service: No Current occupational status: unemployed and disabled Current occupation: right handed. Current occupational exposures/hazards: No Cognitive needs: No Hearing needs: No Vision needs: No Questionnaire PHQ-9 Over the last 2 weeks, how often have you been bothered by any of the following problems? Depression Screening Interpretation: Negative Depression Screening Done: Yes Source: Developed by Drs. Stephen Chun, Mikey Ambrosio and colleagues, with an educational xiao from [employer]. Thrive Questionnaire Date Thrive assessed: 06/28/23 THRIVE Score: 0 SHOAIB-7 AMB Questionnaire SHOAIB-7 Date SHOAIB - 7 assessed: 06/28/23 Source: Developed by Drs. Stephen Chun, Ronit Aldridge, Mikey Peterson and colleagues, with an educational xiao from [employer]. Review of Systems Const Denies chills, Denies fatigue, Denies fever(s) and Denies headache(s) ENT Denies dysphagia, Denies dizziness, Denies otalgia, Denies headache(s), Denies neck pain, Denies odynophagia and Denies sore throat Card Denies chest pain, Denies palpitations and Denies dyspnea Resp Denies chest congestion, Denies cough and Denies dyspnea GI Reports abdominal pain (on and off, especially after he injects his Lantus), Denies constipation, Denies dysphagia, Denies heartburn, Denies diarrhea, Denies nausea, Denies odynophagia and Denies vomiting Denies difficulty urinating, Denies dysuria, Denies nocturia and Denies urinary frequency Musc Denies back pain, Reports arthralgias (over his left middle finger, over the distal half) and Denies neck pain Skin/Breast Denies rash Neuro Denies dizziness and Denies headache(s) Endo Denies fatigue and Denies palpitations Physical exam (Primary Care) Vital Signs: Last Vital Signs Pulse 80 09/29/23 12:43 BP 114/82 09/29/23 12:43 Pulse Ox 99 09/29/23 12:43 Oxygen Delivery Method Room Air 09/29/23 12:43 BMI result Body Mass Index 31.5 Tobacco/Smoking Status: Tobacco use Status Tobacco use date assessed 06/28/23 09/29/23 12:37 Patient Tobacco Use Status Never used Tobacco 09/29/23 12:37 e-Cigarette/Vaping Use Never Used 09/29/23 12:37 Depression Screening Interpretation: Negative Thrive Assessment: Date of Thrive Assessment Date Thrive assessed 06/28/23 09/29/23 12:37 Const General: no acute distress and alert HENMT Ears: TM's normal bilaterally and EAC's normal Throat: Yes posterior oropharynx normal and Yes tonsils normal (no TP congestion) Neck Neck: Yes supple and No lymphadenopathy Thyroid: Thyroid normal Resp Auscultation: clear to auscultation bilaterally, no rales and no wheezes Cardio Rate: regular rate Rhythm: regular rhythm Heart sounds: no murmurs GI Palpation (GI): Soft to palpation and nontender Auscultation: normal bowel sounds General: Yes no CVA tenderness Back/Spine/Pelvis Back: no CVA tenderness Thoracic/Lumbar Spine: No lumbar spinal tenderness Skin Rashes: no rashes Extrem Other: (+) slight contracture of the distal IP joint of the left middle finger - is unable to fully extend the aforementioned finger General: Yes no clubbing, cyanosis or edema Results Reviewed Results Reviewed: Laboratory Tests 09/27/23 09/27/23 10:50 10:56 WBC 7.6 Hgb 16.3 Hct 49.1 Plt Count 162 Sodium 135 Potassium 4.8 Creatinine 0.85 Estimated GFR > 60 Fasting Glucose 270 H Hemoglobin A1c % 8.5 H Calcium 9.9 AST 30 ALT 31 Triglycerides 87 Cholesterol 186 LDL Cholesterol, Calc 129 H HDL Cholesterol 40 L 25-OH Vitamin D Total 15.3 L TSH 1.78 Ur Specific [place] 1.020 Urine Protein Negative Urine Glucose (UA) 100 H Urine Blood Negative Urine Nitrite Negative Ur Leukocyte Esterase Large (3+) H Microalb/Creat Ratio 14.7 Coding Level of Care Code Est Pt Level 4 (58528) Diagnoses Type 2 diabetes mellitus without complication, with long-term current use of insulin E11.9; Z79.4 Diabetes mellitus type: type 2 Diabetes mellitus intermediate designer insulin use: with shelter use Diabetes mellitus complication status: without complication Pure hypercholesterolemia E78.00 Pain involving joint of finger of left hand M25.542 Vitamin D deficiency E55.9 Obesity (BMI 30-39.9) E66.9
[2023-09-29 12:43] VITALS: BP 114/82; PULSE 80; O2SAT 99; BMI 31.5
== END 2023-09-29 13:27 | disposition home or self-care (01) ==
PROVIDERS: PCP Hospitalist; Visit Provider Internal Medicine
DX: E11.9 Type 2 diabetes mellitus without complications (principal); Z79.4 Long term (current) use of insulin; E78.00 Pure hypercholesterolemia, unspecified; M25.542 Pain in joints of left hand; E55.9 Vitamin D deficiency, unspecified; E66.9 Obesity, unspecified
CPT/HCPCS: 99499

== ENCOUNTER 2023-10-08 09:38 | Outpatient (AMB) | payer OTHER, SELFPAY ==
--- NOTE | 2023-10-08 09:39 | A.OFFVIS_ITS ---
Vital Signs 10/08/23 09:41 Height 5 ft 9 in Weight 213 lb BMI 31.5 Intake Visit Reasons: N/P left hand limited ROM Intake Note: Nayan is a 53 year old right hand dominant male who presents with left hand limited ROM on his middle finger. Patient reports he has pain and is using a finger splint for the pain with a little help. His finger also has some black and blue and can't move it. He has had surgery on this finger in October 19, 2020 and it has been like this since his surgery. He denies any numbness and tingling. Allergies No Known Allergies [No Known Allergies*] Allergy (Verified 10/08/23 09:49) HPI HPI N/P left hand limited ROM: Details: 53-year-old right hand dominant male who presents to the office today for evaluation of left hand. He has a history of left middle finger surgery on 10/19/20 and has been having difficulty ever since. He states he has limited ROM in his left middle finger. He also reports of some ecchymosis on his finger. He denies any numbness or tingling. He is using a finger splint with mild relief. [facility] Medical History Obesity (BMI 30-39.9) Diabetes mellitus Surgical History Laceration of scalp Finger infection Family History Mother Asthma Hypertension Hyperlipemia Diabetes Cardiovascular disease Cancer No family history of mental disorder Father Thyroid disease No family history of mental disorder Social History Housing: Apartment Do you presently have visiting nurse or other home services: No Alcohol intake: never Patient Tobacco Use Status: Never used Tobacco e-Cigarette/Vaping Use: Never Used Second Hand Smoke Exposure: No Substance Use Type: Marijuana service: No Current occupational status: unemployed and disabled Current occupation: right handed. Current occupational exposures/hazards: No Cognitive needs: No Hearing needs: No Vision needs: No Review of Systems Const All systems reviewed & are unremarkable except as noted in HPI and below Physical Exam Vital Signs: BMI result Body Mass Index 31.5 Extrem Other: Left hand: Normal to inspection. He does have a flexion contracture of left middle finger at the level of DIP. I am able to bring him to a closed fist. He has full extension in all his digit with exception of the DIP of middle finger. Assessment & Plan Assessment & Plan (1) Pain involving joint of finger of left hand: Code(s): M25.542 - Pain in joints of left hand Category: Medical Plan I discussed with him the options which include physical therapy. He would like to just work on motion of hand and I did demonstrate some ROM exercises with him today. He is fixated on the DIP of middle finger and do not think this would resolve other than fusion of the DIP which could leave him in extension. He would not like to have a surgery this time and he will focus on his hand. If he has any concerns, he will see me back with Dr. Casillas to discuss surgical intervention. Patient Instructions: Scribed for Jax Hill PA-C, by Koko Quan faculty i on call medical assistant, on 10/08/2023 at 9:45 AM BEK[facility]. Rosalinda, Jax Hill PA-C, have personally reviewed and agree with the information entered by the scribe. Coding Level of Care Code Est Pt Level 3 (43972) Diagnoses Pain involving joint of finger of left hand M25.542
[2023-10-08 09:41] VITALS: BMI 31.5
== END 2023-10-08 10:24 | disposition home or self-care (01) ==
PROVIDERS: PCP Internal Medicine; Visit Provider Physician Assistant
DX: M25.542 Pain in joints of left hand (principal)
CPT/HCPCS: 99213

== ENCOUNTER → 2023-10-08 09:38 | Outpatient (BNVA) | payer OTHER, SELFPAY | PROVIDERS: PCP Internal Medicine; Visit Provider Physician Assistant | DX: M25.542 Pain in joints of left hand (principal) | CPT/HCPCS: 99212 ==

== ENCOUNTER 2024-01-03 09:07 | Outpatient (REF) | payer OTHER, SELFPAY ==
[2024-01-03 11:36] LABS: MANUAL DIFF FLAG NO
[2024-01-03 11:40] LABS: Basophils Absolute Auto 0.1 X10*3/uL (0.0-0.2); Basophils Percent Auto 0.7 % (0-2); Eosinophils Absolute Auto 0.3 X10*3/uL (0.0-0.4); Eosinophils Percent Auto 3.5 % (0-4); Hematocrit 47.1 % (42.0-52.0); Hemoglobin 15.6 g/dl (14.0-18.0); Imm Gran Abs Auto 0.02 X10*3/uL (0.00-0.03); Imm Gran Pct Auto 0.3 % (0.0-0.4); Lymphocytes Absolute Auto 2.1 X10*3/uL (1.2-4.9); Lymphocytes Percent Auto 30.3 % (20-40); Mean Corpuscular HGB Conc 33.1 g/dl (31.0-36.0); Mean Corpuscular Hemoglobin 30.8 pg (27.0-33.0); Mean Corpuscular Volume 92.9 fL (80.0-98.0); Mean Platelet Volume 12.4 fL (9.4-12.4); Monocytes Absolute Auto 0.7 X10*3/uL (0.1-1.2); Monocytes Percent Auto 9.3 % (2-11); Neutrophils Absolute Auto 3.9 x10*3/uL (2.0-8.3); Neutrophils Percent Auto 55.9 % (45-73); Platelet Count 155 X10*3/uL (160-400); Red Blood Count 5.07 X10*6/uL (4.60-5.80); White Blood Count 7.1 X10*3/uL (4.8-10.8)
[2024-01-03 11:55] LABS: Estimated Average Glucose 148 mg/dL; Hemoglobin A1c % 6.8 % (<6.0)
[2024-01-03 12:02] LABS: Alanine Aminotransferase 24 U/L (0-40); Albumin Level 4.1 g/dL (3.5-5.0); Alkaline Phosphatase 64 U/L (39-117); Anion Gap 12 (12-20); Appearance Urine Clear; Aspartate Amino Transferase 24 U/L (5-37); Bilirubin Total 0.9 mg/dL (0.0-1.0); Blood Urea Nitrogen 7 mg/dL (9-16); Calcium 9.4 mg/dL (8.4-10.2); Carbon Dioxide 31 mmol/L (22-29); Chloride 100 mmol/L (96-108); Cholesterol 141 mg/dL (<200); Color Urine Yellow; Estimated Glomerular Filt Rate > 60; Glucose Fasting 170 mg/dL (60-99); Glucose Urine UA 100 mg/dL (Negative); HDL Cholesterol 41 mg/dL (>40); LDL Cholesterol Calculated 84 mg/dL (<100); Leukocyte Esterase Urine Moderate (2+) (Negative); Nitrite Urine Negative (Negative); PH 6.5 (5.0-9.0); Potassium 4.1 mmol/L (3.3-5.1); Sodium 139 mmol/L (135-145); Total Protein 7.7 g/dL (6.5-8.0); Triglycerides 81 mg/dL (<150); UMIC TRIGGER UACC YES; Urine Blood Negative (Negative); Urine Ketones Negative (Negative); Urine Protein Negative (Neg-Trace)
[2024-01-03 12:05] LABS: Bacteria Urine None Seen (None Seen); Hyaline Casts Urine 0-2 /LPF (0-2); RBC Urine 0-2 /HPF (0-2); Squamous Epithelial Cell Urine 0-2 /HPF (0-2); UACC Culture Trigger YES
[2024-01-03 13:06] LABS: Creatinine Urine 110.44 mg/dL; Microalbum/Creatinine Ratio Ur 8.1 ug/mg cr (<30)
== END 2024-01-03 09:08 | disposition home or self-care (01) ==
LOC: HO.HHCL 09:07
PROVIDERS: Visit Provider Internal Medicine
DX: E78.00 Pure hypercholesterolemia, unspecified (principal); E11.9 Type 2 diabetes mellitus without complications; D64.9 Anemia, unspecified
CPT/HCPCS: 36415; 80053; 80061; 81001; 81003; 82043; 82570; 83036; 85025; 87086

== ENCOUNTER 2024-10-20 08:51 | Outpatient (REF) | payer OTHER, SELFPAY ==
[2024-10-20 10:54] LABS: MANUAL DIFF FLAG NO
--- OUTSIDE RECORDS SUMMARY | 2024-10-20 11:13 | XMS_ITS | Clinical Summary ---
Author Organization [employer] Address [address] [place] [address] Care Team Providers Care Pain Management Nurse Practitioner Name Role Phone Unavailable Primary Care Provider [...] patient's age to complete this topic Insurance [facility]AL-[facility] MEDICAID STAND ADULT [place] STAND ADULT
[2024-10-20 11:22] LABS: Basophils Absolute Auto 0.1 X10*3/uL (0.0-0.2); Basophils Percent Auto 0.7 % (0-2); Eosinophils Absolute Auto 0.2 X10*3/uL (0.0-0.4); Eosinophils Percent Auto 3.2 % (0-4); Hematocrit 47.2 % (42.0-52.0); Hemoglobin 15.6 g/dl (14.0-18.0); Imm Gran Abs Auto 0.03 X10*3/uL (0.00-0.03); Imm Gran Pct Auto 0.4 % (0.0-0.4); Lymphocytes Absolute Auto 2.6 X10*3/uL (1.2-4.9); Lymphocytes Percent Auto 34.6 % (20-40); Mean Corpuscular HGB Conc 33.1 g/dl (31.0-36.0); Mean Corpuscular Hemoglobin 29.6 pg (27.0-33.0); Mean Corpuscular Volume 89.6 fL (80.0-98.0); Monocytes Absolute Auto 0.8 X10*3/uL (0.1-1.2); Neutrophils Absolute Auto 3.8 x10*3/uL (2.0-8.3); Neutrophils Percent Auto 51.1 % (45-73); Platelet Count 159 X10*3/uL (160-400); Red Blood Count 5.27 X10*6/uL (4.60-5.80); Red Cell Distribution Width 12.1 % (11.0-16.0); White Blood Count 7.5 X10*3/uL (4.8-10.8)
[2024-10-20 11:59] LABS: Appearance Urine Clear; Color Urine Yellow; Glucose Urine UA >=1000 mg/dL (Negative); Leukocyte Esterase Urine Negative (Negative); Nitrite Urine Negative (Negative); Specific Gravity - Urine >= 1.030 (1.005-1.025); UMIC TRIGGER UACC YES; Urine Blood Negative (Negative); Urine Ketones Negative (Negative); Urine Protein Negative (Neg-Trace)
[2024-10-20 12:06] LABS: Bacteria Urine None Seen (None Seen); Hyaline Casts Urine 0-2 /LPF (0-2); RBC Urine 0-2 /HPF (0-2); Squamous Epithelial Cell Urine 0-2 /HPF (0-2); UACC Culture Trigger YES
[2024-10-20 12:38] LABS: Alanine Aminotransferase 23 U/L (0-40); Albumin Level 4.3 g/dL (3.5-5.0); Alkaline Phosphatase 59 U/L (39-117); Anion Gap 12 (12-20); Aspartate Amino Transferase 23 U/L (5-37); Blood Urea Nitrogen 10 mg/dL (9-16); Calcium 9.8 mg/dL (8.4-10.2); Carbon Dioxide 29 mmol/L (22-29); Chloride 101 mmol/L (96-108); Cholesterol 164 mg/dL (<200); Estimated Glomerular Filt Rate > 60; Glucose Fasting 305 mg/dL (60-99); HDL Cholesterol 43 mg/dL (>40); LDL Cholesterol Calculated 105 mg/dL (<100); Potassium 4.6 mmol/L (3.3-5.1); Sodium 137 mmol/L (135-145); Total Protein 8.2 g/dL (6.5-8.0); Triglycerides 83 mg/dL (<150)
[2024-10-20 12:42] LABS: TSH reflex Free T4 1.53 uIU/mL (0.32-4.0); Vitamin D 25-OH Total 23.6 ng/mL (>30)
== END 2024-10-20 08:52 | disposition home or self-care (01) ==
LOC: HO.LAB 08:51
PROVIDERS: PCP Internal Medicine
DX: Z00.00 Encounter for general adult medical examination without abnormal findings (principal); E66.9 Obesity, unspecified; E11.9 Type 2 diabetes mellitus without complications; M25.542 Pain in joints of left hand; E78.00 Pure hypercholesterolemia, unspecified; E55.9 Vitamin D deficiency, unspecified; H61.20 Impacted cerumen, unspecified ear; D69.6 Thrombocytopenia, unspecified; I10 Essential (primary) hypertension; Z79.4 Long term (current) use of insulin; Z68.30 Body mass index [BMI] 30.0-30.9, adult
CPT/HCPCS: 36415; 80053; 80061; 81001; 82306; 83036; 84443; 85025; 87086; 99212

== ENCOUNTER 2024-10-20 08:51 | Outpatient (AMB) | payer OTHER, SELFPAY ==
[2024-10-20 08:53] VITALS: BP 130/86; PULSE 88; RESP 18; TEMP 36.8; O2SAT 99; BMI 30.2
--- NOTE | 2024-10-20 08:53 | MHC.PC.OV ---
Vital Signs 10/20/24 08:53 Height 5 ft 9 in Weight 204 lb 6.4 oz BMI 30.2 BP 130/86 Blood Pressure Location Lt brachial Position Sitting Respiration 18 Pulse 88 Pulse Source Pulse Oximeter Temp 98.2 F Temp Source Oral Pulse Oximetry (%) 99 Oxygen Delivery Method Room Air Intake Visit Reasons: follow up blood pressure Game Tester Required: No Accompanied by: Friend Allergies No Known Allergies [No Known Allergies*] Allergy (Verified 10/20/24 10:16) Medication List - Last Reconciled 10/20/24 by TYESHA Kwong atorvastatin 10 mg PO BEDTIME 90 days flash glucose scanning reader (FreeStyle Jackelin 2 [place]) As directed FreeStyle Jackelin 2 Sensor (flash glucose sensor) As directed NS Lantus Solostar U-100 Insulin (insulin glargine) 30 units (0.3 mL) subcut QPM 30 days NS metformin 1,000 mg PO BID 30 days pen needle, diabetic (BD Ultra-Fine Erica Pen Needle) As directed once a day Tobacco use date assessed: 10/20/24 Dental Screening Dental Screen Date: 10/20/24 Did you have a dental visit in the last 12 months?: No Did you have a dental problem in the last 6 months where you did not have access to dental care?: No Was dental information given to patient?: No HPI follow up blood pressure HPI Details The patient is a 54-year-old male presenting with hearing difficulties and concerns regarding blood sugar management linked to type 2 diabetes mellitus. He reports progressive hearing loss, primarily due to what is identified as wax impaction upon physical examination. Concerns about the management of his diabetes are expressed, with his remarks indicating an elevated A1c of 8.7. He is currently taking 30 units of Lantus daily and Metformin 1000mg bid, highlighting issues of suboptimal blood sugar control. Additionally, he has longstanding arthritis-like joint pains related to an old finger injury, leading to deformity and discomfort over the years. With regard to his hypertension, the patient has a recent blood pressure reading of 130/86 mmHg and acknowledges managing it with dietary changes rather than medications. He does not regularly engage with health services, denying recent blood work or medical evaluations. 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 [facility] Medical History Obesity (BMI 30-39.9) Diabetes mellitus Surgical History Laceration of scalp Finger infection Family History Mother Asthma Hypertension Hyperlipemia Diabetes Cardiovascular disease Cancer No family history of mental disorder Father Thyroid disease No family history of mental disorder Social History Housing: Apartment Do you presently have visiting nurse or other home services: No Alcohol intake: never Patient Tobacco Use Status: Never used Tobacco e-Cigarette/Vaping Use: Never Used Second Hand Smoke Exposure: No Substance Use Type: Marijuana service: No Current occupational status: unemployed and disabled Current occupation: right handed. Current occupational exposures/hazards: No Cognitive needs: No Hearing needs: No Vision needs: No Questionnaire PHQ-9 Over the last 2 weeks, how often have you been bothered by any of the following problems? 1. Little interest or pleasure in doing things: several days 2. Feeling down, depressed, or hopeless: not at all 3. Trouble falling or staying asleep, or sleeping too much: not at all 4. Feeling tired or having little energy: not at all 5. Poor appetite or overeating: not at all 6. Feeling bad about yourself - or that you are a failure or have let yourself or your family down: not at all 7. Trouble concentrating on things, such as reading the newspaper or watching television: not at all 8. Moving or speaking so slowly that other people could have noticed. Or the opposite - being so fidgety or restless that you have been moving around a lot more than usual: not at all 9. Thoughts that you would be better off or of hurting yourself in some way: not at all Total score: 1 Depression Screening Interpretation: Negative Depression Screening Done: Yes 10774 - PHQ-9 Billing: Yes Source: Developed by Drs. Stephen Chun, Ronit Aldridge, Mikey Peterson and colleagues, with an educational xiao from [employer]. Thrive Questionnaire Date Thrive assessed: 10/20/24 I am a: Patient What is your living situation today?: I have a steady place to live Within the past 12 months, did the food you bought not last and you didn't have the money to get more?: Sometimes True Within the past 12 months, did you worry whether your food would run out before you got money to buy more?: Sometimes True Do you have trouble paying for medicines?: Yes Do you have trouble getting transportation to medical appointments?: Yes Do you have trouble paying your heating and electricity bill?: No Do you have trouble taking care of your child, family member or friend?: No Do you have trouble with day-to-day activities such as bathing, preparing meals, shopping, managing finances, etc.?: Yes Are you currently unemployed and looking for a job?: No Are you interested in more education?: No Please select the resources that you would like help with: Transportation Currently or been in a relationship where the following occur: No concerns reported THRIVE Score: 3 AUDIT C Alcohol Use Questionnaire (AUDIT-C) 1. How often do you have a drink containing alcohol?: Never Total Score: 0 Score Reviewed/Action Taken: No SHOAIB-7 AMB Questionnaire SHOAIB-7 Date SHOAIB - 7 assessed: 10/20/24 Feeling nervous, anxious, or on edge: 0 = Not at all Not being able to stop or control worryin = Not at all Worrying too much about different things: 0 = Not at all Trouble relaxin = Not at all Being so restless that it is hard to sit still: 0 = Not at all Becoming easily annoyed or irritable: 0 = Not at all Feeling afraid as if something awful might happen: 0 = Not at all Total SHOAIB-7 score (0-4 normal; 5-9 mild; 10-14 moderate; 15-21 severe): 0 Source: Developed by Drs. Stephen Chun, Ronit Aldridge, Mikey Peterson and colleagues, with an educational xiao from [employer]. SHOAIB-7 Assessment Billing SHOAIB-7 Assessment Tool: SHOAIB-7 Assessment 61552 Review of Systems Const Denies headache(s) Eyes Denies loss of vision ENT Denies vertigo, Denies dizziness, Denies headache(s) and Denies sore throat Card Denies chest pain, Denies leg edema and Denies lightheadedness Resp Denies cough, Denies hemoptysis and Denies wheezing GI Denies abdominal pain, Denies melena, Denies constipation, Denies diarrhea and Denies vomiting Denies dysuria, Denies urinary frequency and Denies urinary urgency Musc Reports arthralgias (3RD digit PIP joint contracture), Denies joint swelling, Denies numbness and Denies tingling Neuro Denies vertigo, Denies dizziness, Denies headache(s), Denies loss of vision, Denies numbness and Denies tingling Rusty/Lymph Denies easy bleeding and Denies easy bruising Aller/Immun Denies wheezing Physical exam (Primary Care) Vital Signs: Last Vital Signs Temp 98.2 F 10/20/24 08:53 Pulse 88 10/20/24 08:53 Resp 18 10/20/24 08:53 BP 130/86 10/20/24 08:53 Pulse Ox 99 10/20/24 08:53 Oxygen Delivery Method Room Air 10/20/24 08:53 BMI result Body Mass Index 30.2 Tobacco/Smoking Status: Tobacco use Status Tobacco use date assessed 10/20/24 10/20/24 08:55 Patient Tobacco Use Status Never used Tobacco 10/20/24 08:55 e-Cigarette/Vaping Use Never Used 10/20/24 08:55 PHQ-9: PHQ-9 Score PHQ-9: Total score 1 10/20/24 09:56 Depression Screening Interpretation: Negative Thrive Assessment: Date of Thrive Assessment Date Thrive assessed 10/20/24 10/20/24 08:55 Currently or been in a relationship where the following occur: No concerns reported Results AMB Hemoglobin A1c AMB Hemoglobin A1c 8.7 % Last Edit by Akiko Sexton CMA on 10/20/24 09:07 Results Reviewed Results Reviewed: Laboratory Last Values Hgb A1c (Clinic) 8.7 % (4.0-6.0) H 10/20/24 08:56 Coding Additional Codes SHOAIB-7 Assessment Billing - SHOAIB-7 Assessment Tool: SHOAIB-7 Assessment 96125 ([id number]) PHQ-9 - 56758 - PHQ-9 Billing: Yes ([id number]) Assessment & Plan Assessment & Plan Orders: Orders AMB Hemoglobin A1c 10/20/24 E11.9 - Type 2 diabetes mellitus without complications, Z79.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 (current) use of insulin Glucose Fasting 10/20/24 E11.9 - Type 2 diabetes mellitus without complications, E66.9 - Obesity, unspecified, Z00.00 - Encounter for general adult medical examination without abnormal findings, Z79.4 - adjunct 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 (current) use of insulin Lipid Panel 10/20/24 E11.9 - Type 2 diabetes mellitus without complications, E66.9 - Obesity, unspecified, Z00.00 - Encounter for general adult medical examination without abnormal findings, Z79.4 - adjunct 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 (current) use of insulin UA CC w/rflx Micro + Cult 10/20/24 E11.9 - Type 2 diabetes mellitus without complications, E66.9 - Obesity, unspecified, Z00.00 - Encounter for general adult medical examination without abnormal findings, Z79.4 - adjunct 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 (current) use of insulin Vitamin D 25-OH Total 10/20/24 E11.9 - Type 2 diabetes mellitus without complications, E66.9 - Obesity, unspecified, Z00.00 - Encounter for general adult medical examination without abnormal findings, Z79.4 - [facility] (current) use of insulin Medications: New blood sugar diagnostic (FreeStyle Lite Strips) As directed check blood sugar tid 100 ea 2RF E11.9 - Type 2 diabetes mellitus without complications, Z79.4 - adjunct 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 (current) use of insulin blood-glucose meter (Freestyle InsuLinx meter) As directed check blood sugar TID 1 ea 0RF E11.9 - Type 2 diabetes mellitus without complications, Z79.4 - adjunct 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 (current) use of insulin carbamide peroxide 6.5% (Debrox) 5 drps otic (ears) Q12H 4 days 15 mL 0RF lancets (FreeStyle Lancets) As directed check blood sugar TID 100 ea 2RF E11.9 - Type 2 diabetes mellitus without complications, Z79.4 - adjunct 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 (current) use of insulin Changed From Lantus Solostar U-100 Insulin (insulin glargine) 30 units (0.3 mL) subcut QPM 30 days 9 mL 1RF NS E11.9 - Type 2 diabetes mellitus without complications To Lantus Solostar U-100 Insulin (insulin glargine) 40 units (0.4 mL) subcut QPM 30 days 12 mL 3RF NS E11.9 - Type 2 diabetes mellitus without complications From pen needle, diabetic (BD Ultra-Fine Erica Pen Needle) As directed once a day 100 ea 5RF E11.9 - Type 2 diabetes mellitus without complications To pen needle, diabetic As directed once a day 100 ea 5RF E11.9 - Type 2 diabetes mellitus without complications Refilled metformin 1,000 mg PO BID 30 days 60 tabs 5RF E11.9 - Type 2 diabetes mellitus without complications FreeStyle Jackelin 2 Sensor (flash glucose sensor) As directed 6 ea 5RF NS E11.9 - Type 2 diabetes mellitus without complications flash glucose scanning reader (FreeStyle Jackelin 2 [place]) As directed 3 ea 6RF E11.9 - Type 2 diabetes mellitus without complications
--- OUTSIDE RECORDS SUMMARY | 2024-10-20 09:02 | XMS_ITS | Clinical Summary ---
Author Organization [employer] Address [address] [place] [address] Care Team Providers Care Poultryman Name Role Phone Unavailable Primary Care Provider Unavailabl e Allergies No known active allergies Medications No known medications Social History Tobacco Use Types Packs/Day Years Used Date Smoking Tobacco: Never Passive Smoke Exposure: Never Smokeless Tobacco: Never Tobacco Cessation:Counseling Given: No Alcohol Use Standard Drinks/Week Comments Never 0 (1 standard drink = 0.6 oz pur e alcohol) Sex and Gender Information Value Date Recorded Sex Assigned at Male 04/06/2022 10:16 AM EDT Legal Sex Male 10:16 AM EDT Gender Identity Male 04/06/2022 10:16 AM EDT Sexual Orientation Straight 04/06/2022 10 :16 AM EDT Last Filed Vital Signs Vital Sign Reading Time Taken Comments Blood Pressure 138/80 05/22/2022 12:28 PM EST Pulse 76 05/22/2022 12:28 PM EST Temperature - - Respiratory Rate - - Oxygen Saturation - - Inhaled Oxygen Concentration - - Weight - - Height - - Body Mass Index - - Plan of Treatment Health Maintenance Due Date Last Done Comments CT Colonography 1968 Colonoscopy 1968 Colorectal Cancer Screening 1968 Dental Oral Exam 1968 Dental Prophylaxis 1968 Dental X-Ray: Bitewings 1968 Dental X-Ray: Full Mouth 1968 Depression Screening 1968 FIT DNA/Cologuard 1968 FIT 1968 FOBT 1968 HIV Screening 1968 Lipid Panel 1968 SDOH Screening 1968 Sigmoidoscopy 1968 Alcohol/Substance Use Screening 1980 Hepatitis C Screening 01/08/1986 Hepatitis B Vaccines (1 of 3 - 19+ 3-dose series) 01/08/1987 Pneumococcal Vaccine: 50+ Ye ars (1 of 1 - PCV) 01/08/2018 Zoster Vaccines (1 of 2) 01/08/2018 Tobacco Screening 05/22/2023 05/22/2022 COVID-19 Vaccine (2 - 2023-2 5 season) 2024 02/19/2021 Influenza Vaccine (#1) 2024 DTaP/Tdap/Td Vaccines (2 - T d or Tdap) 10/02/2030 10/02/2020 RSV Patients and Pa tients Aged 60 years or older (1 - 1-dose 75+ series) 01/08/2043 HIB Vaccines Aged Out No longer eligi ble based on patient's age to complete this topic HPV Vaccines Aged Out No longer eligi ble based on patient's age to complete this topic Hepatitis A Vaccines Aged Out No long er eligible based on patient's age to complete this topic IPV Vaccines Aged Out No longer eligi ble based on patient's age to complete this topic Meningococcal B Vaccine Aged Out No l onger eligible based on patient's age to complete this topic Meningococcal Vaccine Aged Out No sherry brianne eligible based on patient's age to complete this topic RSV under 20 months Aged Out No longe r eligible based on patient's age to complete this topic Rotavirus Vaccines Aged Out No longer eligible based on patient's age to complete this topic Insurance [facility] MEDICAID STAND ADULT [place] STAND ADULT
== END 2024-10-20 10:19 | disposition home or self-care (01) ==
LOC: HO.HMCH 08:51
PROVIDERS: PCP Internal Medicine
DX: E11.9 Type 2 diabetes mellitus without complications (principal); Z79.4 Long term (current) use of insulin

== ENCOUNTER 2024-11-09 08:19 | Outpatient (AMB) | payer OTHER, SELFPAY ==
[2024-11-09 08:31] VITALS: BP 120/50; PULSE 85; O2SAT 99
--- NOTE | 2024-11-09 08:31 | A.OFFPC_ITS ---
Vital Signs 11/09/24 08:31 Height 5 ft 9 in Weight 203 lb 6 oz BMI 30.0 BP 120/50 L Blood Pressure Location Lt brachial Position Sitting Pulse 85 Pulse Source Pulse Oximeter Pulse Oximetry (%) 99 Oxygen Delivery Method Room Air Intake Visit Reasons: ear cleaning Clerical Adviser Required: No Accompanied by: Daughter Allergies No Known Allergies [No Known Allergies*] Allergy (Verified 11/09/24 09:12) Medication List - Last Reconciled 11/09/24 by Tanika Chanel PA-C albuterol sulfate 90 mcg/actuation 1 inh inhalation QID PRN atorvastatin 10 mg PO BEDTIME 90 days blood sugar diagnostic (FreeStyle Lite Strips) As directed check blood sugar tid blood-glucose meter (Freestyle InsuLinx meter) As directed check blood sugar TID carbamide peroxide 6.5% (Debrox) 5 drps otic (ears) Q12H 4 days cholecalciferol (vitamin D3) 25 mcg PO DAILY flash glucose scanning reader (FreeStyle Jackelin 2 [place]) As directed FreeStyle Jackelin 2 Sensor (flash glucose sensor) As directed NS lancets (FreeStyle Lancets) As directed check blood sugar TID Lantus Solostar U-100 Insulin (insulin glargine) 40 units (0.4 mL) subcut QPM 30 days NS metformin 1,000 mg PO BID 30 days pen needle, diabetic As directed once a day Tobacco use date assessed: 11/09/24 Dental Screening Dental Screen Date: 11/09/24 Did you have a dental visit in the last 12 months?: No Did you have a dental problem in the last 6 months where you did not have access to dental care?: No Was dental information given to patient?: Patient has dentist HPI ear cleaning HPI Details 54 year old male past medical history of hypertension, obesity, diabetes mellitus, hypercholesterolemia coming to the office for ear cleaning. [facility] Medical History Obesity (BMI 30-39.9) Diabetes mellitus Surgical History Laceration of scalp Finger infection Family History Mother Asthma Hypertension Hyperlipemia Diabetes Cardiovascular disease Cancer No family history of mental disorder Father Thyroid disease No family history of mental disorder Social History Housing: Apartment Do you presently have visiting nurse or other home services: No Alcohol intake: never Patient Tobacco Use Status: Never used Tobacco e-Cigarette/Vaping Use: Never Used Second Hand Smoke Exposure: No Substance Use Type: Marijuana service: No Current occupational status: unemployed and disabled Current occupation: right handed. Current occupational exposures/hazards: No Cognitive needs: No Hearing needs: No Vision needs: No Questionnaire PHQ-9 Over the last 2 weeks, how often have you been bothered by any of the following problems? 1. Little interest or pleasure in doing things: several days 2. Feeling down, depressed, or hopeless: not at all 3. Trouble falling or staying asleep, or sleeping too much: not at all 4. Feeling tired or having little energy: not at all 5. Poor appetite or overeating: not at all 6. Feeling bad about yourself - or that you are a failure or have let yourself or your family down: not at all 7. Trouble concentrating on things, such as reading the newspaper or watching television: not at all 8. Moving or speaking so slowly that other people could have noticed. Or the opposite - being so fidgety or restless that you have been moving around a lot more than usual: not at all 9. Thoughts that you would be better off or of hurting yourself in some way: not at all Total score: 1 Depression Screening Interpretation: Negative Depression Screening Done: Yes Source: Developed by Drs. Stephne Chun, Ronit Aldridge, Mikey Peterson and colleagues, with an educational xiao from [employer]. Thrive Questionnaire Date Thrive assessed: 11/09/24 I am a: Patient What is your living situation today?: I have a steady place to live Within the past 12 months, did the food you bought not last and you didn't have the money to get more?: Sometimes True Within the past 12 months, did you worry whether your food would run out before you got money to buy more?: Sometimes True Do you have trouble paying for medicines?: Yes Do you have trouble getting transportation to medical appointments?: Yes Do you have trouble paying your heating and electricity bill?: No Do you have trouble taking care of your child, family member or friend?: No Do you have trouble with day-to-day activities such as bathing, preparing meals, shopping, managing finances, etc.?: Yes Are you currently unemployed and looking for a job?: No Are you interested in more education?: No Please select the resources that you would like help with: Transportation Currently or been in a relationship where the following occur: No concerns reported THRIVE Score: 3 AUDIT C Alcohol Use Questionnaire (AUDIT-C) 1. How often do you have a drink containing alcohol?: Never Total Score: 0 Score Reviewed/Action Taken: No SHOAIB-7 AMB Questionnaire SHOAIB-7 Date SHOAIB - 7 assessed: 11/09/24 Feeling nervous, anxious, or on edge: 0 = Not at all Not being able to stop or control worryin = Not at all Worrying too much about different things: 0 = Not at all Trouble relaxin = Not at all Being so restless that it is hard to sit still: 0 = Not at all Becoming easily annoyed or irritable: 0 = Not at all Feeling afraid as if something awful might happen: 0 = Not at all Total SHOAIB-7 score (0-4 normal; 5-9 mild; 10-14 moderate; 15-21 severe): 0 Source: Developed by Drs. Stephen Chun, Ronit Aldridge, Mikey Peterson and colleagues, with an educational xiao from [employer]. Review of Systems ENT Details: ear clogged feeling and decreased hearing bilaterally Physical exam (Primary Care) Vital Signs: Oxygen Delivery Method Room Air 11/09/24 08:31 Tobacco/Smoking Status: Tobacco use Status Tobacco use date assessed 11/09/24 11/09/24 08:35 Patient Tobacco Use Status Never used Tobacco 11/09/24 08:35 e-Cigarette/Vaping Use Never Used 11/09/24 08:35 PHQ-9: PHQ-9 Score PHQ-9: Total score 1 11/09/24 08:35 Depression Screening Interpretation: Negative Thrive Assessment: Date of Thrive Assessment Date Thrive assessed 11/09/24 11/09/24 08:35 Currently or been in a relationship where the following occur: No concerns reported Const General: cooperative, healthy appearing, comfortable and no acute distress HENMT Ears: Abnormal EAC present cerumen impaction bilateral Resp Effort & Inspection: normal respiratory effort Cardio Rate: regular rate Psych Affect: normal affect Attitude: cooperative Insight: Good insight present (Psych) Judgement: Good judgement present (Psych) Office Procedures Cerumen Removal From which ear canal was the cerumen removed: bilateral Removal: irrigation and cerumen loop/spoon Notes: patient tolerated procedure well and no complications [id number] Irrigation/Lavage Coding Level of Care Code Est Pt Level 2 (80398) Diagnoses Impacted cerumen, unspecified laterality H61.20 Laterality: unspecified laterality CPT Codes Office Procedure - CPT: 54546-Isk Irrigation/Lavage ([id number]) Assessment & Plan Assessment & Plan (1) Impacted cerumen, unspecified ear: Code(s): H61.20 - Impacted cerumen, unspecified ear Category: Medical Qualifiers: Laterality: unspecified laterality Qualified Code(s): H61.20 - Impacted cerumen, unspecified ear Plan: I attempted to remove the cerumen using using lighted curette and ear lavage. Cerumen was not successfully removed and TMs were not visualized today. The wax that was visualized was dark brown and hard. Advised patient to use Debrox drops 1 week and returned to the clinic for repeat ear flush. Plan Patient requesting refills of medications which was provided today. This note was constructed using voice recognition software. While every effort has been made to ensure accuracy and rn progressive care, still areas may have been included sometimes these areas may affect the content or meeting of the given symptoms. Total time spent caring for the patient today was 20 minutes. This includes time spent before the visit reviewing the chart, time spent during the visit, and time spent after the visit and documentation. Medications: New albuterol sulfate 90 mcg/actuation 1 inh inhalation QID PRN 8.5 grams 0RF shortness of breath or wheezing Refilled atorvastatin 10 mg PO BEDTIME 90 days 90 tabs 1RF cholecalciferol (vitamin D3) 25 mcg PO DAILY 90 caps 3RF Lantus Solostar U-100 Insulin (insulin glargine) 40 units (0.4 mL) subcut QPM 30 days 12 mL 3RF NS E11.9 - Type 2 diabetes mellitus without complications metformin 1,000 mg PO BID 30 days 60 tabs 5RF E11.9 - Type 2 diabetes mellitus without complications blood-glucose meter (Freestyle InsuLinx meter) As directed check blood sugar TID 1 ea 0RF E11.9 - Type 2 diabetes mellitus without complications, Z79.4 - care home (current) use of insulin flash glucose scanning reader (FreeStyle Jackelin 2 [place]) As directed 3 ea 6RF E11.9 - Type 2 diabetes mellitus without complications lancets (FreeStyle Lancets) As directed check blood sugar TID 100 ea 2RF E11.9 - Type 2 diabetes mellitus without complications, Z79.4 - care home (current) use of insulin pen needle, diabetic As directed once a day 100 ea 5RF E11.9 - Type 2 diabetes mellitus without complications carbamide peroxide 6.5% (Debrox) 5 drps otic (ears) Q12H 4 days 15 mL 0RF FreeStyle Jackelin 2 Sensor (flash glucose sensor) As directed 6 ea 5RF NS E11.9 - Type 2 diabetes mellitus without complications blood sugar diagnostic (FreeStyle Lite Strips) As directed check blood sugar tid 100 ea 2RF E11.9 - Type 2 diabetes mellitus without complications, Z79.4 - care home (current) use of insulin
--- OUTSIDE RECORDS SUMMARY | 2024-11-09 08:31 | XMS_ITS | Clinical Summary ---
Author Organization [employer] Address [address] [place] [address] [address] [place] [address] Care Team Providers Care Instrumental Teacher Name Role Phone Unavailable Primary Care Provider [...] Panel 1968 SDOH Screening 1968 Sigmoidoscopy 1968 Disability Screening 1968 Alcohol/Substance Use Screening 1980 Hepatitis C Screening 01/08/1986 Hepatitis B Vaccines (1 of 3 - 19+ 3-dose series) 01/08/1987 Pneumococcal Vaccine: 50+ Ye ars (1 of 1 - PCV) 01/08/2018 Zoster Vaccines (1 of 2) 01/08/2018 Tobacco Screening 05/22/2023 05/22/2022 COVID-19 Vaccine (2 - 2023-2 5 season) 2024 02/19/2021 Influenza Vaccine (Season Ended) 2025 DTaP/Tdap/Td Vaccines (2 - T d or [...] patient's age to complete this topic Insurance [facility]AL-[facility] MEDICAID STAND ADULT D[place]AL[place] STAND ADULT
== END 2024-11-09 09:16 | disposition home or self-care (01) ==
LOC: HO.HMCH 08:20
PROVIDERS: PCP Internal Medicine
DX: H61.23 Impacted cerumen, bilateral (principal)

== ENCOUNTER → 2024-11-09 08:19 | Outpatient (BNVA) | payer OTHER, SELFPAY | PROVIDERS: PCP Internal Medicine | DX: H61.23 Impacted cerumen, bilateral (principal); I10 Essential (primary) hypertension; E66.9 Obesity, unspecified; E11.9 Type 2 diabetes mellitus without complications; E78.00 Pure hypercholesterolemia, unspecified; Z68.30 Body mass index [BMI] 30.0-30.9, adult; Z79.4 Long term (current) use of insulin | CPT/HCPCS: 69210; 99212 ==

== ENCOUNTER 2025-01-04 08:08 | Outpatient (REF) | payer OTHER, SELFPAY ==
--- OUTSIDE RECORDS SUMMARY | 2025-01-05 08:10 | XMS_ITS | Clinical Summary ---
Author Organization [employer] Address [address] [place] [address] [address] [place] [address] Care Team Providers Care Legal Writing Professor Name Role Phone Unavailable Primary Care Provider [...] 5 season) 2024 02/19/2021 Influenza Vaccine (#1) 2025 DTaP/Tdap/Td Vaccines (2 - T d [...] patient's age to complete this topic Insurance D[facility]AL-[facility] MEDICAID STAND ADULT D[place]AL[place] STAND ADULT
== END 2025-01-04 08:09 | disposition home or self-care (01) ==
LOC: HO.HOSX 08:08
PROVIDERS: Visit Provider Orthopaedic Surgery
DX: Z13.89 Encounter for screening for other disorder (principal)

== ENCOUNTER 2025-03-02 13:25 | Outpatient (AMB) | payer OTHER, SELFPAY ==
[2025-03-02 13:47] VITALS: BP 126/80; PULSE 90; O2SAT 98; BMI 28.7
--- NOTE | 2025-03-02 13:47 | A.OFFPC_ITS ---
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 Required: No Accompanied by: Self / Same As Patient Allergies No Known Allergies (No Known Allergies*) Allergy (Verified 03/03/25 06:38) Medication List - Last Reconciled 03/03/25 by Lyndon Santana MD albuterol sulfate 90 mcg/actuation 1 inh inhalation QID PRN atorvastatin 10 mg PO BEDTIME 90 days blood sugar diagnostic (FreeStyle Lite Strips) As directed check blood sugar tid blood-glucose meter (Freestyle InsuLinx meter) As directed check blood sugar TID carbamide peroxide 6.5% (Debrox) 5 drps otic (ears) Q12H 10 days cholecalciferol (vitamin D3) 25 mcg PO DAILY flash glucose scanning reader (FreeStyle Jackelin 2 Mobile) As directed FreeStyle Jackelin 2 Sensor (flash glucose sensor) As directed NS lancets (FreeStyle Lancets) As directed check blood sugar TID Lantus Solostar U-100 Insulin (insulin glargine) 40 units (0.4 mL) subcut QPM 30 days NS metformin 1,000 mg PO BID 30 days pen needle, diabetic As directed once a day Tobacco use date assessed: 03/02/25 Dental Screening Dental Screen Date: 03/02/25 Did you have a dental visit in the last 12 months?: No Did you have a dental problem in the last 6 months where you did not have access to dental care?: No Was dental information given to patient?: Patient has dentist HPI Ear Irrigation HPI Details Patient comes in today for his follow up visit - he was last seen by me in September 2023 but was last seen by one of our midlevel providers a few months ago in October 2024 Patient states that he has been experiencing increased abdominal pain whenever he injects his Lantus - he is currently at 40 units a day He also still has (+) pain and what seems to be a slight contracture over the distal IP joint of his left middle finger and he is unable to fully extend his finger as a result - relates that he had an infection in this area a few years ago that required surgical drainage States that he also still has decreased hearing in both ears that is worse in the left ear - still feels like his ears are clogged up all the time He was last seen here by one of our mid-level providers back in November and he was found to have impacted cerumen in his ears Ear irrigation was attempted but was unsuccessful and he was advised to start using some Debrox eardrops for several things and to come back for repeat ear irrigation but patient did not return until today He denies any headaches or dizziness Denies any chest pains, no shortness of breath No nausea/vomiting; reports (+) recurrent abdominal pain especially after he injects his Lantus into his abdominal wall Patient also reports that he has been constipated for a while now and struggles to move his bowels even once every few days States that his stomach feels bloated all the time lately He has not taken anything to help with his constipation so far [facility] Medical History (Updated 03/03/25 @ 14:34 by Lyndon Santana MD) Overweight (BMI 25.0-29.9) Pure hypercholesterolemia Obesity (BMI 30-39.9) Diabetes mellitus Surgical History Laceration of scalp Finger infection Family History Mother Asthma Hypertension Hyperlipemia Diabetes Cardiovascular disease Cancer No family history of mental disorder Father Thyroid disease No family history of mental disorder Social History Housing: Apartment Do you presently have visiting nurse or other home services: No Alcohol intake: never Patient Tobacco Use Status: Never used Tobacco e-Cigarette/Vaping Use: Never Used Second Hand Smoke Exposure: No Substance Use Type: Marijuana service: No Current occupational status: unemployed and disabled Current occupation: right handed. Current occupational exposures/hazards: No Cognitive needs: No Hearing needs: No Vision needs: No Questionnaire PHQ-9 Over the last 2 weeks, how often have you been bothered by any of the following problems? Depression Screening Interpretation: Negative Depression Screening Done: Yes Source: Developed by Drs. Stephen Chun, Ronit Aldridge, Mikey Peterson and colleagues, with an educational xiao from [employer]. Thrive Questionnaire Date Thrive assessed: 10/20/24 I am a: Patient What is your living situation today?: I have a steady place to live Within the past 12 months, did the food you bought not last and you didn't have the money to get more?: Sometimes True Within the past 12 months, did you worry whether your food would run out before you got money to buy more?: Sometimes True Do you have trouble paying for medicines?: Yes Do you have trouble getting transportation to medical appointments?: Yes Do you have trouble paying your heating and electricity bill?: No Do you have trouble taking care of your child, family member or friend?: No Do you have trouble with day-to-day activities such as bathing, preparing meals, shopping, managing finances, etc.?: Yes Are you currently unemployed and looking for a job?: No Are you interested in more education?: No Please select the resources that you would like help with: Transportation Currently or been in a relationship where the following occur: No concerns reported THRIVE Score: 3 AUDIT C Alcohol Use Questionnaire (AUDIT-C) 1. How often do you have a drink containing alcohol?: Never 3. How often do you have six or more drinks on one occasion?: Never Total Score: 0 Score Reviewed/Action Taken: No SHOAIB-7 AMB Questionnaire SHOAIB-7 Date SHOAIB - 7 assessed: 11/09/24 Source: Developed by Drs. Stephen Chun, Ronit Aldridge, Mikey Peterson and colleagues, with an educational xiao from [employer]. Review of Systems Const Denies chills, Denies fatigue, Denies fever(s) and Denies headache(s) ENT Details: (+) decreased hearing in both ears - states that his ears feel clogged up all the time,worse in the left ear Denies dysphagia, Denies dizziness, Denies otalgia, Denies headache(s), Denies neck pain, Denies odynophagia and Denies sore throat Card Denies chest pain, Denies palpitations and Denies dyspnea Resp Denies chest congestion, Denies cough and Denies dyspnea GI Reports abdominal pain (on and off, especially after he injects his Lantus), Reports bloating, Denies hematochezia, Reports constipation (increased), Denies dysphagia, Denies heartburn, Denies diarrhea, Denies nausea, Denies odynophagia and Denies vomiting Denies difficulty urinating, Denies dysuria, Denies nocturia and Denies urinary frequency Musc Denies back pain, Reports arthralgias (over his left middle finger, especially the distal half) and Denies neck pain Skin/Breast Denies rash Neuro Denies dizziness and Denies headache(s) Endo Denies fatigue and Denies palpitations Physical exam (Primary Care) Vital Signs: Last Vital Signs Pulse 90 03/02/25 13:47 BP 126/80 03/02/25 13:47 Pulse Ox 98 03/02/25 13:47 Oxygen Delivery Method Room Air 03/02/25 13:47 BMI result Body Mass Index 28.7 Tobacco/Smoking Status: Tobacco use Status Tobacco use date assessed 03/02/25 03/02/25 14:18 Patient Tobacco Use Status Never used Tobacco 03/02/25 13:48 e-Cigarette/Vaping Use Never Used 03/02/25 13:48 Depression Screening Interpretation: Negative Thrive Assessment: Date of Thrive Assessment Date Thrive assessed 10/20/24 03/02/25 13:48 Currently or been in a relationship where the following occur: No concerns reported Const General: no acute distress and alert HENMT Ears: TM normal on the right (partially visualized), Abnormal EAC present cerumen impaction on the left and excessive cerumen on the right and unable to visualize TM on the left Throat: Yes posterior oropharynx normal and Yes tonsils normal (no TP congestion) Neck Neck: Yes supple and No lymphadenopathy Thyroid: Thyroid normal Resp Auscultation: clear to auscultation bilaterally, no rales and no wheezes Cardio Rate: regular rate Rhythm: regular rhythm Heart sounds: no murmurs GI Palpation (GI): Soft to palpation, nontender (but (+) mild diffuse discomfort), no guarding, not rigid and No Rebound tenderness present Auscultation: normal bowel sounds General: Yes no CVA tenderness Back/Spine/Pelvis Back: no CVA tenderness Thoracic/Lumbar Spine: No lumbar spinal tenderness Skin Rashes: no rashes Extrem Other: (+) slight contracture of the distal IP joint of the left middle finger - is unable to fully extend the aforementioned finger General: Yes no clubbing, cyanosis or edema Results AMB Hemoglobin A1c AMB Hemoglobin A1c 8.5 % Last Edit by PAKO Weiner on 03/02/25 14 :36 Results Reviewed Results Reviewed: Laboratory Last Values Hgb A1c (Clinic) 8.5 % (4.0-6.0) H 03/02/25 14:20 Coding Level of Care Code Est Pt Level 4 (24093) Diagnoses Type 2 diabetes mellitus without complication, with long-term current use of insulin E11.9; Z79.4 Diabetes mellitus complication status: without complication Diabetes mellitus terminologist insulin use: with assisted use Diabetes mellitus type: type 2 Pure hypercholesterolemia E78.00 Pain of left middle finger M79.645 Constipation, unspecified constipation type K59.00 Constipation type: unspecified constipation type Impacted cerumen of both ears H61.23 Vitamin D deficiency E55.9 Overweight (BMI 25.0-29.9) E66.3 Assessment & Plan Assessment & Plan (1) Diabetes mellitus: Code(s): E11.9 - Type 2 diabetes mellitus without complications Category: Medical Qualifiers: Diabetes mellitus complication status: without complication Diabetes mellitus terminologist insulin use: with terminologist use Diabetes mellitus type: type 2 Qualified Code(s): E11.9 - Type 2 diabetes mellitus without complications; Z79.4 - terminal make up operator (current) use of insulin Plan: His in-office HgbA1c today is at 8.5% (was previously at 8.7% a few months ago) - goal is at least <7.0% Reinforced diabetic diet Continue Lantus 40 units SQ QD for now - have advised patient that his abdominal pain may not necessarily be due to his medication but could possibly be due to constipation Continue Metformin 1000 mg BID Will refer him to endocrinology for recommendations and help in managing his diabetes (2) Pure hypercholesterolemia: Code(s): E78.00 - Pure hypercholesterolemia, unspecified Category: Medical Plan: Reinforced low cholesterol diet Continue Atorvastatin 10 mg QD for now Will have patient recheck his labs and fasting lipids in 2 months for follow up (3) Pain of left middle finger: Code(s): M79.645 - Pain in left finger(s) Category: Medical Plan: X-rays of the finger done back in June 2023 revealed that the DIP joint of the middle digit is held in flexion. An extensor tendon injury can therefore not be excluded. There is no acute osseous abnormality noted Patient recalls that this is the finger that had an infection a few years ago that required surgical drainage Will refer him to orthopedics for further evaluation and management and recommendations (4) Constipation: Code(s): K59.00 - Constipation, unspecified Category: Medical Qualifiers: Constipation type: unspecified constipation type Qualified Code(s): K59.00 - Constipation, unspecified Plan: Reinforced increased oral fluids and dietary fiber intake Will start him on Senna 8.6 mg 1 to 2 tablets QD PRN (5) Impacted cerumen of both ears: Code(s): H61.23 - Impacted cerumen, bilateral Category: Medical Plan: Patient is advised that his left ear is completely blocked up but his right ear is only partially obscured by cerumen and his right TM appears normal Ear irrigation was attempted here in the office unsuccessfully a few months ago Will have patient start using Debrox ear drops for now as it seems to have partially cleared up his right ear partially - advised patient to use the ears drops BID daily for the next 10 days and he is instructed to start self irrigating his ears again while he is in the shower daily Will have him return in a couple of weeks to reassess his ears and to see if his ears still need irrigation at the time (6) Vitamin D deficiency: Code(s): E55.9 - Vitamin D deficiency, unspecified Category: Medical Plan: Continue Vitamin D3 1000 units QD (7) Overweight (BMI 25.0-29.9): Code(s): E66.3 - Overweight Category: Medical Plan: Reinforced diet/exercise as tolerated/lose weight Plan Follow up in 2 months Orders: Orders Hemoglobin A1c 2 Months E11.9 - Type 2 diabetes mellitus without complications Lipid Panel 2 Months E78.00 - Pure hypercholesterolemia, unspecified Complete Blood Count Auto Diff 2 Months D64.9 - Anemia, unspecified Comprehensive [place]. Panel Fast 2 Months E78.00 - Pure hypercholesterolemia, unspecified AMB Hemoglobin A1c 03/02/25 Z13.9 - Encounter for screening, unspecified Microalbumin, Random (w Creat) 2 Months E11.9 - Type 2 diabetes mellitus without complications UA CC w/rflx Micro + Cult 2 Months R30.0 - Dysuria TSH reflex Free T4 2 Months E78.00 - Pure hypercholesterolemia, unspecified Vitamin D 25-OH Total 2 Months E55.9 - Vitamin D deficiency, unspecified Referrals Endocrinology Referral E11.9 - Type 2 diabetes mellitus without complications, Z79.4 - terminal make up operator (current) use of insulin Orthopedics Referral M79.645 - Pain in left finger(s) Medications: New sennosides (senna) 8.6 mg PO BID PRN 60 caps 3RF constipation 30 days Changed From carbamide peroxide 6.5% (Debrox) 5 drps otic (ears) Q12H 4 days 15 mL 0RF To carbamide peroxide 6.5% (Debrox) 5 drps otic (ears) Q12H 15 mL 0RF 10 days
--- OUTSIDE RECORDS SUMMARY | 2025-03-02 14:43 | XMS_ITS | Clinical Summary ---
Author Organization [employer] Address [address] [place] [address] Care Team Providers Care Travograph Operator Name Role Phone Unavailable Primary Care Provider Unavailabl e Allergies No known active allergies Medications Ventolin HFA 108 (90 Base) MCG/ACT inhaler INHALE 1 PUFF BY MOUTH 4 TIMES A DAY NEEDED FOR SHORTNESS OF BREATH OR WHEEZE 01/29/20 25 Active Blood Glucose Monitoring Suppl (FreeStyle [place] Lite) w/Device kit DIRECTED CHECK BLOOD SUGAR 3 TIMES A DAY 11/27/19 25 Active Continuous Glucose Principal Archaeologist (FreeStyle Jackelin 2 [place]) device as directed 10/24/19 25 Active Continuous Glucose Sensor (FreeStyle Jackelin 2 Sensor) misc as directed 11/14/19 25 Active FREESTYLE LITE test strip DIRECTED CHECK BLOOD SUGAR 3 TIMES A DAY 10/21/19 25 Active Lantus SoloStar 100 UNIT/ML pen INJECT 40 UNITS (0.4 ML) SUBCUTANEOUSLY EVERY EVENING FOR 30 DAYS 10/21/19 25 Active Embecta Pen Needle Erica 2 Gen 32G X 4 MM misc USE DIRECTED ONCE A DAY 01/21/20 25 Active FreeStyle lancets DIRECTED CHECK BLOOD SUGAR 3 TIMES A DAY 10/21/19 25 Active metFORMIN (Glucophage) 1000 MG tablet Take 1 tablet by mouth 2 times daily. 01/21/20 25 Active amoxicillin (Amoxil) 500 MG capsule Take 1 capsule (500 mg) by mouth every 8 (eight) hours for 7 days. 21 capsule 02/07/20 25 025 acetaminophen (Tylenol 8 Hour) 650 MG ER tablet Take 1 tablet (650 mg) by mouth every 8 (eight) hours if needed for moderate pain for up to 10 days. Do not crush, chew, or split. 15 tablet 02/07/20 25 025 chlorhexidine (Peridex) 0.12 % solution Use 15 mL in the mouth or throat if needed (for mouthwash 15 ml for 30 seconds, swish and spit) for up to 14 days. 473 mL 02/07/20 25 025 Encounters Date Type Department Care Team Description 02/06/2025 11:30 AM EDT Office Visit [facility] [address] [place] [address] Lisbet Ledbetter DDS Encounter for dental examination (Primary Dx); Dental calculus; Periodontal disease; Teeth missing; Rampant dental caries from Last 3 Months Social History Tobacco Use Types Packs/Day Years [...] Sign Reading Time Taken Comments Blood Pressure 140/80 02/06/2025 11:29 AM EDT Pulse 76 05/22/2022 12:28 PM EST Temperature - - Respiratory Rate - - Oxygen Saturation - - Inhaled Oxygen Concentration - - Weight - - Height - - Body Mass Index - - Plan of Treatment Upcoming Encounters Date Type Department Care Team (Late st Contact Info) Description 03/07/2025 9:30 AM EDT Office Visit [facility] ADULT [facility] [address] [place] [address] Lenard Pereira DDS [address] [place] [address] Health Maintenance Due Date Last Done Comments CT Colonography 1968 Colonoscopy 1968 Colorectal Cancer Screening 1968 Dental Prophylaxis 1968 Dental X-Ray: Bitewings 1968 Depression Screening 1968 FIT DNA/Cologuard 1968 FIT 1968 FOBT 1968 HIV Screening 1968 Lipid Panel 1968 SDOH Screening 1968 Sigmoidoscopy 1968 Disability Screening 1968 Alcohol/Substance Use Screening 1980 Hepatitis C Screening 01/08/1986 Hepatitis B Vaccines (1 of 3 - 19+ 3-dose series) 01/08/1987 Pneumococcal Vaccine: 50+ Ye ars (1 of 1 - PCV) 01/08/2018 Zoster Vaccines (1 of 2) 01/08/2018 COVID-19 Vaccine (2 - 2024-2 6 season) 2025 02/19/2021 Influenza Vaccine (#1) 2025 Dental Oral Exam 08/07/2025 02/06/2025 Tobacco Screening 02/06/2026 02/06/2025 Dental X-Ray: Full Mouth 02/08/2028 02/06/2025 DTaP/Tdap/Td Vaccines (2 - T d or [...] on patient's age to complete this topic Procedures Procedure Name Priority Date/Time Associated Diagnosis Comments CASE PRESENTATION, DETAILED AND EXTENSIVE TREATMENT PLANNING Routine 02/06/2025 11:30 AM EDT Encounter for dental examination Dental calculus Periodontal disease Teeth missing [place] dental caries PANORAMIC RADIOGRAPHIC IMAGE Routine 02/06/2025 11:30 AM EDT Encounter for dental examination Dental calculus Periodontal disease Teeth missing [place] dental caries COMPREHENSIVE ORAL EVALUATION - NEW OR ESTABLISHED PATIENT Routine 02/06/2025 11:30 AM EDT Encounter for dental examination Dental calculus Periodontal disease Teeth missing [place] dental caries from Last 3 Months [facility] STAND ADULT
== END 2025-03-02 14:52 | disposition home or self-care (01) ==
PROVIDERS: PCP Internal Medicine; Visit Provider Internal Medicine
DX: Z13.9 Encounter for screening, unspecified (principal)

== ENCOUNTER → 2025-03-02 13:25 | Outpatient (BNVA) | payer OTHER, SELFPAY | PROVIDERS: PCP Internal Medicine; Visit Provider Internal Medicine | DX: E11.9 Type 2 diabetes mellitus without complications (principal); E78.00 Pure hypercholesterolemia, unspecified; M79.645 Pain in left finger(s); K59.00 Constipation, unspecified; H61.23 Impacted cerumen, bilateral; E55.9 Vitamin D deficiency, unspecified; E66.3 Overweight; D64.9 Anemia, unspecified; R30.0 Dysuria; Z79.4 Long term (current) use of insulin; Z68.28 Body mass index [BMI] 28.0-28.9, adult | CPT/HCPCS: 83036; 99212 ==

== ENCOUNTER → 2025-04-10 10:42 | Outpatient (BNV) | payer OTHER, SELFPAY | PROVIDERS: Visit Provider Radiology Diagnostic Radiology | DX: M79.642 Pain in left hand (principal) | CPT/HCPCS: 73130 ==

== ENCOUNTER 2025-04-10 12:41 | Outpatient (REF) | payer OTHER, SELFPAY ==
--- NOTE | ~2025-04-10 | XR_ITS ---
EXAMINATION: XR HAND, LEFT CLINICAL INFORMATION: M79.642 - Pain in left hand COMPARISON: June 28, 2023 TECHNIQUE: PA, lateral, and oblique views of the left hand. FINDINGS: Degenerative changes in the proximal and distal interphalangeal joints of the third and to a lesser extent fourth and fifth digits. There is a flexed position of the distal interphalangeal joint of the third digit. No acute cortical disruption or malalignment. No metallic or radiopaque foreign body. No subcutaneous emphysema. No metallic or radiopaque foreign body. No gross soft tissue calcifications. No gross bony erosions. XR/XR hand LT min 3V IMPRESSION: Semiflexion position distal interphalangeal joint third digit. Electronically signed by: Moo Fischer MD 04/10/2025 10:54 AM BEKAH SEGURA
--- OUTSIDE RECORDS SUMMARY | 2025-04-11 15:17 | XMS_ITS | Clinical Summary ---
Author Organization [employer] Address [address] [facility] [facility] [address] [place] [address] Care Team Providers Care Court Clerk Name Role Phone Unavailable Primary Care Provider Unavailabl e Allergies No known active allergies Medications Ventolin HFA 108 (90 Base) MCG/ACT inhaler INHALE 1 PUFF BY MOUTH 4 TIMES A DAY NEEDED FOR SHORTNESS OF BREATH OR WHEEZE 5 Active Blood Glucose Monitoring Suppl (FreeStyle [place] Lite) w/Device kit DIRECTED CHECK BLOOD SUGAR 3 TIMES A DAY 5 Active Continuous Glucose Brick Grader (FreeStyle Jackelin 2 [place]) device as directed 5 Active Continuous Glucose Sensor (FreeStyle Jackelin 2 Sensor) misc as directed 5 Active FREESTYLE LITE test strip DIRECTED CHECK BLOOD SUGAR 3 TIMES A DAY 5 Active Lantus SoloStar 100 UNIT/ML pen INJECT 40 UNITS (0.4 ML) SUBCUTANEOUSLY EVERY EVENING FOR 30 DAYS 5 Active Embecta Pen Needle Erica 2 Gen 32G X 4 MM misc USE DIRECTED ONCE A DAY 5 Active FreeStyle lancets DIRECTED CHECK BLOOD SUGAR 3 TIMES A DAY 5 Active metFORMIN (Glucophage) 1000 MG tablet Take 1 tablet by mouth 2 times daily. 5 Active Encounters Date Type Department Care Team Description 02/06/2025 11:30 AM EDT Office Visit [facility]ULT [facility] [address] [place] [address] Lisbet Ledbetter DDS Encounter for dental examination [...] dental caries from Last 3 Months Insurance [place]
== END 2025-04-10 12:42 | disposition home or self-care (01) ==
LOC: HO.HOSX 12:41
PROVIDERS: Visit Provider Orthopaedic Surgery
DX: M79.642 Pain in left hand (principal)
CPT/HCPCS: 73130

== ENCOUNTER 2025-04-18 14:00 | Outpatient (AMB) | payer OTHER, SELFPAY ==
--- NOTE | 2025-04-18 14:10 | A.OFFVIS_ITS ---
Vital Signs 04/18/25 14:11 Height 5 ft 9 in Weight 197 lb 12.074 oz BMI 29.2 BP 130/84 Blood Pressure Location Lt brachial Position Sitting Pulse 82 Pulse Source Pulse Oximeter Pulse Oximetry (%) 99 Oxygen Delivery Method Room Air Intake Visit Reasons: T2DM Intake Note: NEW Patient presents today to establish treatment for Type 1 Diabetes Mellitus: Last Diabetic eye exam was on: Patient hasn't had an eye exam since childhood. Last Podiatry exam was on: Patient does not see a Senior Clinical Research Associate Most recent HbA1c: 8.5%, 03/02/2025 Random Glucose: 270 mg/dL Applications Developer Required: No Accompanied by: Self / Same As Patient Allergies No Known Allergies (No Known Allergies*) Allergy (Verified 04/18/25 14:15) HPI Comments Details: The patient is a 55 year old male with diabetes, type 2 presenting for consultation Medical history: HLD, overweight Diagnosis 2020 Current medications Metformin 1000mg twice daily Lantus 40 units -he is taking 30 Endorses with insulin injections that his abdomen hurts and he develops constipation so he does not do them daily On CGM. Has completely run out of sensors. Currently on jackelin 2 has been on for at least two years. Previous medications: Denies Mother diabetes Denies micro/macrovascular complications ROS CONSTITUTIONAL: Denies weight loss, fever and chills. HEENT: Denies changes in vision and hearing. RESPIRATORY: Denies SOB and cough. CV: Denies palpitations and CP GI: Denies abdominal pain, nausea, vomiting and diarrhea. : Denies dysuria and urinary frequency. MSK: Denies new myalgia and joint pain. SKIN: Denies rash and pruritus. NEUROLOGICAL: Denies headache PSYCHIATRIC: Denies recent changes in mood. PHYSICAL EXAM: GENERAL: Alert and oriented x 3. NAD EYES: EOMI. Anicteric. HENT: Moist mucous membranes. No scleral icterus. No cervical lymphadenopathy. LUNGS: Clear to auscultation bilaterally. CARDIOVASCULAR: Regular rate and rhythm. No murmur. No JVD. ABDOMEN: Soft, non-tender +bs EXTREMITIES: No edema. Non-tender. SKIN: No rashes or lesions. Warm. NEUROLOGIC: No focal neurological deficits. CN II-XII grossly intact PSYCHIATRIC: Cooperative. Appropriate mood and affect [facility] Medical History (Updated 09/27/25 @ 14:34 by Lyndon Santana MD) Overweight (BMI 25.0-29.9) Pure hypercholesterolemia Obesity (BMI 30-39.9) Diabetes mellitus Surgical History Laceration of scalp Finger infection Family History Mother Asthma Hypertension Hyperlipemia Diabetes Cardiovascular disease Cancer No family history of mental disorder Father Thyroid disease No family history of mental disorder Social History Housing: Apartment Do you presently have visiting nurse or other home services: No Alcohol intake: never Patient Tobacco Use Status: Never used Tobacco e-Cigarette/Vaping Use: Never Used Second Hand Smoke Exposure: No Substance Use Type: Marijuana service: No Current occupational status: unemployed and disabled Current occupation: right handed. Current occupational exposures/hazards: No Cognitive needs: No Hearing needs: No Vision needs: No Physical Exam Vital Signs: Last Vital Signs Pulse 82 04/18/25 14:11 BP 130/84 04/18/25 14:11 Pulse Ox 99 04/18/25 14:11 Oxygen Delivery Method Room Air 04/18/25 14:11 BMI result Body Mass Index 29.2 Assessment & Plan Assessment & Plan (1) Diabetes mellitus: Code(s): E11.9 - Type 2 diabetes mellitus without complications Category: Medical Qualifiers: Diabetes mellitus type: type 2 Diabetes mellitus intermediate school teacher insulin use: with intermediate school teacher use Diabetes mellitus complication status: without complication Qualified Code(s): E11.9 - Type 2 diabetes mellitus without complications; Z79.4 - retirement (current) use of insulin (2) Insulin long-term use: Code(s): Z79.4 - terminal press operator (current) use of insulin Category: Medical Plan Diabetes, uncontrolled some non compliance issues I discussed with patient very unlikely his injections were causing constipation. His PCP has already told him this. Cologuard ordered. He would not accept GI referral. Trial linzess For diabetes start pioglitazone. If insulin use becomes regular may have to adjust dosing. Continue metformin We discussed treatment of hypoglycemia by rules of 15s CGM ordered. Follow up CDE then me Orders: Referrals Cologuard Test Z12.11 - Encounter for screening for malignant neoplasm of colon, Z12.12 - Encounter for screening for malignant neoplasm of rectum Diabetes Education Referral E11.9 - Type 2 diabetes mellitus without complications, Z79.4 - retirement (current) use of insulin Medications: New FreeStyle Jackelin 3 Plus Sensor (blood-glucose sensor) every 15 days 6 ea 0RF NS pioglitazone 30 mg PO DAILY 90 tabs 3RF linaclotide (Linzess) 145 mcg PO DAILY 90 caps 1RF FreeStyle Jackelin 3 [place] (blood-glucose,sas programmer analyst,cont) every 15 days 1 ea 0RF NS E11.9 - Type 2 diabetes mellitus without complications, Z79.4 - terminal press operator (current) use of insulin Changed From Lantus Solostar U-100 Insulin (insulin glargine) 40 units (0.4 mL) subcut QPM 30 days 12 mL 3RF NS E11.9 - Type 2 diabetes mellitus without complications To Lantus Solostar U-100 Insulin (insulin glargine) 30 units (0.3 mL) subcut QPM 9 mL 3RF 30 days NS E11.9 - Type 2 diabetes mellitus without complications On Hold FreeStyle Jackelin 2 Sensor (flash glucose sensor) Hold Comment: Doctor's Order As directed 6 ea 5RF NS E11.9 - Type 2 diabetes mellitus without complications Coding Level of Care Code Est Pt Level 4 (28873) Complex EM visit Add On G2211 Diagnoses Type 2 diabetes mellitus without complication, with long-term current use of insulin E11.9; Z79.4 Diabetes mellitus type: type 2 Diabetes mellitus nursing home insulin use: with intermediate school teacher use Diabetes mellitus complication status: without complication Insulin long-term use Z79.4
[2025-04-18 14:11] VITALS: BP 130/84; PULSE 82; O2SAT 99; BMI 29.2
[2025-04-18 14:22] LABS: Glucose, Whole Blood 270 mg/dL (60-115)
--- OUTSIDE RECORDS SUMMARY | 2025-04-18 17:18 | XMS_ITS | Clinical Summary ---
Author Organization [employer] Address [address] [place] [address] Care Team Providers Care Label Rewinder Name Role Phone Unavailable Primary Care Provider Unavailabl e Allergies No known active allergies Medications Ventolin HFA 108 (90 Base) MCG/ACT inhaler INHALE 1 PUFF BY MOUTH 4 TIMES A DAY NEEDED FOR SHORTNESS OF BREATH OR WHEEZE 5 Active Blood Glucose Monitoring Suppl (FreeStyle [place] Lite) w/Device kit DIRECTED CHECK BLOOD SUGAR 3 TIMES A DAY 5 Active Continuous Glucose Professional Bass Fisher (FreeStyle Jackelin 2 [place]) device as directed 5 Active Continuous Glucose [...] Description 02/06/2025 11:30 AM EDT Office Visit [facility] [address] [place] [address] Lisbet Ledbetter DDS Encounter for dental examination [...]
== END 2025-04-18 14:51 | disposition home or self-care (01) ==
LOC: HO.ENCR 14:01
PROVIDERS: PCP Internal Medicine; Visit Provider Internal Medicine
DX: E11.9 Type 2 diabetes mellitus without complications (principal); Z79.4 Long term (current) use of insulin

== ENCOUNTER → 2025-04-18 14:00 | Outpatient (BNVA) | payer OTHER, SELFPAY | PROVIDERS: PCP Internal Medicine; Visit Provider Internal Medicine | DX: E11.9 Type 2 diabetes mellitus without complications (principal); Z79.4 Long term (current) use of insulin | CPT/HCPCS: 82947; 99212 ==

== ENCOUNTER 2025-04-25 12:13 | Outpatient (REF) | payer OTHER, SELFPAY ==
[2025-04-25 13:14] LABS: Appearance Urine Clear; Glucose Urine UA 250 mg/dL (Negative); PH 6.0 (5.0-9.0); Specific Gravity - Urine 1.020 (1.005-1.025); UMIC TRIGGER UACC YES
[2025-04-25 13:46] LABS: MANUAL DIFF FLAG NO
[2025-04-25 13:56] LABS: Hematocrit 45.0 % (42.0-52.0); Hemoglobin 14.7 g/dl (14.0-18.0); Imm Gran Abs Auto 0.07 X10*3/uL (0.00-0.03); Imm Gran Pct Auto 0.9 % (0.0-0.4); Lymphocytes Absolute Auto 2.6 X10*3/uL (1.2-4.9); Mean Corpuscular HGB Conc 32.7 g/dl (31.0-36.0); Mean Corpuscular Hemoglobin 29.7 pg (27.0-33.0); Mean Corpuscular Volume 90.9 fL (80.0-98.0); NRBC Abs Auto 0.000 X10*3/uL (0.0-0.012); NRBC Pct Auto 0.0 /100WBC (0.0-0.2); Platelet Count 216 X10*3/uL (160-400); Red Blood Count 4.95 X10*6/uL (4.60-5.80); White Blood Count 7.7 X10*3/uL (4.8-10.8)
[2025-04-25 14:22] LABS: Alanine Aminotransferase 22 U/L (0-40); Albumin Level 4.4 g/dL (3.5-5.0); Alkaline Phosphatase 53 U/L (39-117); Anion Gap 12 (12-20); Aspartate Amino Transferase 24 U/L (5-37); Blood Urea Nitrogen 12 mg/dL (9-16); Calcium 9.1 mg/dL (8.4-10.2); Carbon Dioxide 28 mmol/L (22-29); Chloride 99 mmol/L (96-108); Cholesterol 155 mg/dL (<200); Estimated Glomerular Filt Rate > 60; HDL Cholesterol 41 mg/dL (>40); Potassium 4.0 mmol/L (3.3-5.1); Sodium 135 mmol/L (135-145); Total Protein 7.9 g/dL (6.5-8.0); Triglycerides 85 mg/dL (<150)
[2025-04-25 14:23] LABS: Alanine Aminotransferase 22 U/L (0-40); Albumin Level 4.5 g/dL (3.5-5.0); Alkaline Phosphatase 54 U/L (39-117); Anion Gap 12 (12-20); Aspartate Amino Transferase 25 U/L (5-37); Blood Urea Nitrogen 12 mg/dL (9-16); Calcium 9.2 mg/dL (8.4-10.2); Carbon Dioxide 28 mmol/L (22-29); Chloride 99 mmol/L (96-108); Cholesterol 156 mg/dL (<200); Estimated Glomerular Filt Rate > 60; HDL Cholesterol 42 mg/dL (>40); Potassium 3.9 mmol/L (3.3-5.1); Sodium 135 mmol/L (135-145); Total Protein 8.1 g/dL (6.5-8.0); Triglycerides 87 mg/dL (<150)
[2025-04-25 14:36] LABS: Microalbum/Creatinine Ratio Ur 9.2 ug/mg cr (<30)
[2025-04-25 15:07] LABS: Folate 11.6 ng/mL (> or = 4.0); Vitamin B12 343 pg/mL (200-900)
[2025-04-25 15:51] LABS: UACC Culture Trigger YES
--- OUTSIDE RECORDS SUMMARY | 2025-04-25 23:20 | XMS_ITS | Clinical Summary ---
Author Organization [employer] Address [address] [facility] [address] [place] [address] Care Team Providers Care Cocoa Mill Operator Name Role Phone Unavailable Primary Care Provider Unavailabl e Allergies No known active allergies Medications Ventolin HFA 108 (90 Base) MCG/ACT inhaler INHALE 1 PUFF BY MOUTH 4 TIMES A DAY NEEDED FOR SHORTNESS OF BREATH OR WHEEZE 5 Active Blood Glucose Monitoring Suppl (FreeStyle [place] Lite) w/Device kit DIRECTED CHECK BLOOD SUGAR 3 TIMES A DAY 5 Active Continuous Glucose Dry Dip Worker (FreeStyle Jackelin 2 [place]) device as directed 5 Active Continuous Glucose Sensor (FreeStyle [place]elin 2 Sensor) misc as directed 5 Active [...] Description 02/06/2025 11:30 AM EDT Office Visit [facility] [address] [place] [address] Lisbet Ledbetter DDS Encounter for dental examination [...]
== END 2025-04-25 12:14 | disposition home or self-care (01) ==
LOC: HO.HHCL 12:13
PROVIDERS: PCP Internal Medicine; Visit Provider Internal Medicine
DX: E11.9 Type 2 diabetes mellitus without complications (principal); E78.00 Pure hypercholesterolemia, unspecified; E55.9 Vitamin D deficiency, unspecified; D69.6 Thrombocytopenia, unspecified; Z79.4 Long term (current) use of insulin
CPT/HCPCS: 36415; 80053; 80061; 81001; 82043; 82306; 82570; 82607; 82746; 83036; 84443; 85025; 87086

== ENCOUNTER 2025-05-09 14:12 | Outpatient (AMB) | payer OTHER, SELFPAY ==
--- NOTE | 2025-05-09 14:15 | A.OFFVIS_ITS ---
Vital Signs 05/09/25 14:16 Height 5 ft 9 in Weight 198 lb 6.656 oz BMI 29.3 BP 138/90 H Blood Pressure Location Rt brachial Position Sitting Pulse 88 Pulse Source Pulse Oximeter Pulse Oximetry (%) 98 Oxygen Delivery Method Room Air Intake Visit Reasons: Diabetes Type 1 Intake Note: Patient presents today to establish treatment for Type 1 Diabetes Mellitus: Last Diabetic eye exam was on: DUE Last Podiatry exam was on: Patient does not see a Air Compressor Engineer Most recent HbA1c: 8.5%, 03/02/2025 Random Glucose: 240 mg/dL Processing Technologist Required: No Accompanied by: Self / Same As Patient Allergies No Known Allergies (No Known Allergies*) Allergy (Verified 05/09/25 14:16) HPI Comments Details: The patient is a 55 year old male with diabetes presenting for consultation Medical history: HLD, overweight Diagnosis 2020 Current medications Metformin 1000mg twice daily-compliant Lantus 30 units-not taking Endorses with insulin injections that his abdomen hurts and he develops constipation so he does not do them daily Actos 30mg-compliant A1C 8.2% from 8.5% from 8.7% On CGM-recently got Jackelin 3 Use 76% Avg 217 GMI 8.5% VH 24% High 52% TGT 24% Previous medications: Denies Mother diabetes Denies micro/macrovascular complications 04/2025 (-)alb/cr LDL 97 ROS CONSTITUTIONAL: Denies weight loss, fever and chills. HEENT: Denies changes in vision and hearing. RESPIRATORY: Denies SOB and cough. CV: Denies palpitations and CP GI: Denies abdominal pain, nausea, vomiting and diarrhea. : Denies dysuria and urinary frequency. MSK: Denies new myalgia and joint pain. SKIN: Denies rash and pruritus. NEUROLOGICAL: Denies headache PSYCHIATRIC: Denies recent changes in mood. PHYSICAL EXAM: GENERAL: Alert and oriented x 3. NAD EYES: EOMI. Anicteric. HENT: Moist mucous membranes. No scleral icterus. No cervical lymphadenopathy. LUNGS: Clear to auscultation bilaterally. CARDIOVASCULAR: Regular rate and rhythm. No murmur. No JVD. ABDOMEN: Soft, non-tender +bs EXTREMITIES: No edema. Non-tender. SKIN: No rashes or lesions. Warm. NEUROLOGIC: No focal neurological deficits. CN II-XII grossly intact PSYCHIATRIC: Cooperative. Appropriate mood and affect [facility] Medical History (Updated 03/03/25 @ 14:34 by Lyndon Santana MD) Overweight (BMI 25.0-29.9) Pure hypercholesterolemia Obesity (BMI 30-39.9) Diabetes mellitus Surgical History Laceration of scalp Finger infection Family History Mother Asthma Hypertension Hyperlipemia Diabetes Cardiovascular disease Cancer No family history of mental disorder Father Thyroid disease No family history of mental disorder Social History Housing: Apartment Do you presently have visiting nurse or other home services: No Alcohol intake: never Patient Tobacco Use Status: Never used Tobacco e-Cigarette/Vaping Use: Never Used Second Hand Smoke Exposure: No Substance Use Type: Marijuana service: No Current occupational status: unemployed and disabled Current occupation: right handed. Current occupational exposures/hazards: No Cognitive needs: No Hearing needs: No Vision needs: No Physical Exam Vital Signs: Last Vital Signs Pulse 88 05/09/25 14:16 BP 138/90 H 05/09/25 14:16 Pulse Ox 98 05/09/25 14:16 Oxygen Delivery Method Room Air 05/09/25 14:16 BMI result Body Mass Index 29.3 Results Reviewed Results Reviewed: Laboratory Last Values Glucose (Clinic) 240 mg/dL (60-115) H 05/09/25 14:25 Assessment & Plan Assessment & Plan (1) Diabetes mellitus: Code(s): E11.9 - Type 2 diabetes mellitus without complications Category: Medical Qualifiers: Diabetes mellitus type: type 2 Diabetes mellitus fci insulin use: with fci use Diabetes mellitus complication status: without complication Qualified Code(s): E11.9 - Type 2 diabetes mellitus without complications; Z79.4 - manager terminal (current) use of insulin Plan 55 year old presenting for diabetic follow up Improving glucose, still suboptimal control Start GLP-1 agonist-mounjaro ordered. Continue actos, metformin CDE today Follow up in one month or sooner as needed Orders: Orders Glutamic acid decarboxylase Ab Today E11.9 - Type 2 diabetes mellitus without complications, Z79.4 - manager terminal (current) use of insulin Islet Cell Antibody Scrn/Titer Today E11.9 - Type 2 diabetes mellitus without complications, Z79.4 - correction (current) use of insulin Referrals Ophthalmology Referral E11.9 - Type 2 diabetes mellitus without complications, Z79.4 - manager terminal (current) use of insulin Medications: New Mounjaro (tirzepatide) for 4 weeks 2.5 mg (0.5 mL) subcut QWEEK 6 mL 3RF NS E11.9 - Type 2 diabetes mellitus without complications, Z79.4 - correction (current) use of insulin Refilled FreeStyle Jackelin 3 Plus Sensor (blood-glucose sensor) every 15 days 6 ea 3RF NS Discontinued flash glucose scanning reader (FreeStyle Jackelin 2 [place]) Discontinued Reason: Doctor's Order As directed 3 ea 6RF E11.9 - Type 2 diabetes mellitus without complications FreeStyle Jackelin 2 Sensor (flash glucose sensor) Discontinued Reason: Doctor's Order As directed 6 ea 5RF NS E11.9 - Type 2 diabetes mellitus without complications On Hold Lantus Solostar U-100 Insulin (insulin glargine) Hold Comment: Dose Change 30 units (0.3 mL) subcut QPM 30 days 9 mL 3RF NS E11.9 - Type 2 diabetes mellitus without complications Coding Level of Care Code Est Pt Level 4 (95098) Diagnoses Type 2 diabetes mellitus without complication, with long-term current use of insulin E11.9; Z79.4 Diabetes mellitus type: type 2 Diabetes mellitus terminal superintendent insulin use: with fci use Diabetes mellitus complication status: without complication
[2025-05-09 14:16] VITALS: BP 138/90; PULSE 88; O2SAT 98; BMI 29.3
[2025-05-09 14:29] LABS: Glucose, Whole Blood 240 mg/dL (60-115)
--- OUTSIDE RECORDS SUMMARY | 2025-05-09 17:02 | XMS_ITS | Clinical Summary ---
Author Organization [employer] Address [address] [facility] [address] [place] [address] Care Team Providers Care Integrated Campaign Manager Name Role Phone Unavailable Primary Care Provider Unavailabl e Allergies No known active allergies Medications Ventolin HFA 108 (90 Base) MCG/ACT inhaler INHALE 1 PUFF BY MOUTH 4 TIMES A DAY NEEDED FOR SHORTNESS OF BREATH OR WHEEZE 5 Active Blood Glucose Monitoring Suppl (FreeStyle [place] Lite) w/Device kit DIRECTED CHECK BLOOD SUGAR 3 TIMES A DAY 5 Active Continuous Glucose Ice Grinder (FreeStyle Jackelin 2 [place]) device as directed [...] by mouth 2 times daily. 5 Active Social History Tobacco Use Types Packs/Day Years [...] Procedure Name Priority Date/Time Associated Diagnosis Comments PANORAMIC RADIOGRAPHIC IMAGE Routine 02/06/2025 11:30 AM EDT Encounter for dental examination Dental calculus Periodontal disease Teeth missing [place] dental caries COMPREHENSIVE ORAL EVALUATION - NEW OR ESTABLISHED PATIENT Routine 02/06/2025 11:30 AM EDT Encounter for dental examination Dental calculus Periodontal disease Teeth missing [place] dental caries from Last 3 Months or Most Recently Relevant to Health Maintenance Insurance DENTAL-[facility] MEDICAID STAND ADULT D[facility]AL-[facility] MEDICAID STAND ADULT
== END 2025-05-09 14:46 | disposition home or self-care (01) ==
PROVIDERS: PCP Internal Medicine; Visit Provider Internal Medicine
DX: E11.9 Type 2 diabetes mellitus without complications (principal); Z79.4 Long term (current) use of insulin

== ENCOUNTER 2025-05-09 14:12 | Outpatient (AMB) | payer OTHER, SELFPAY ==
--- NOTE | 2025-05-09 14:44 | A.OFFVIS_ITS ---
Intake Intake Visit Reasons: T2DM/CGM Allergies No Known Allergies (No Known Allergies*) Allergy (Verified 05/09/25 14:16) HPI Comprehensive Diabetes Asmnt Most Recent Diabetes Results: 2 Microalb/Creat Ratio, (<30) 9.2 ug/mg cr 04/25/25 Cholesterol, (<200) 156 mg/dL 04/25/25 HDL Cholesterol, (>40) 42 mg/dL 04/25/25 Triglycerides, (<150) 87 mg/dL 04/25/25 Creatinine, (0.5-1.4) 0.88 mg/dL 04/25/25 BUN, (9-16) 12 mg/dL 04/25/25 Sodium, (135-145) 135 mmol/L 04/25/25 Potassium, (3.3-5.1) 3.9 mmol/L 04/25/25 Chloride, (96-108) 99 mmol/L 04/25/25 Carbon Dioxide, (22-29) 28 mmol/L 04/25/25 Calcium, (8.4-10.2) 9.2 mg/dL Δ 04/25/25 AST, (5-37) 25 U/L 04/25/25 ALT, (0-40) 22 U/L 04/25/25 Total Protein, (6.5-8.0) 8.1 g/dL H 04/25/25 Albumin, (3.5-5.0) 4.5 g/dL 04/25/25 [facility] Medical History (Updated 03/03/25 @ 14:34 by Lyndon Santana MD) Overweight (BMI 25.0-29.9) Pure hypercholesterolemia Obesity (BMI 30-39.9) Diabetes mellitus Surgical History Laceration of scalp Finger infection Family History Mother Asthma Hypertension Hyperlipemia Diabetes Cardiovascular disease Cancer No family history of mental disorder Father Thyroid disease No family history of mental disorder Social History Housing: Apartment Do you presently have visiting nurse or other home services: No Alcohol intake: never Patient Tobacco Use Status: Never used Tobacco e-Cigarette/Vaping Use: Never Used Second Hand Smoke Exposure: No Substance Use Type: Marijuana service: No Current occupational status: unemployed and disabled Current occupation: right handed. Current occupational exposures/hazards: No Cognitive needs: No Hearing needs: No Vision needs: No Assessment & Plan Assessment & Plan (1) Diabetes mellitus: Code(s): E11.9 - Type 2 diabetes mellitus without complications Qualifiers: Diabetes mellitus type: type 2 Diabetes mellitus superintendent terminal insulin use: with superintendent terminal use Diabetes mellitus complication status: without complication Qualified Code(s): E11.9 - Type 2 diabetes mellitus without complications; Z79.4 - superintendent terminal (current) use of insulin Plan: Learning objectives: The patient was provided with verbal and written education on the following topics as outlined below. The patient met all learning objectives and was able to verbalize understanding and provide teach back of education topics discussed . The patient was provided with the opportunity to ask questions and all questions were answered. Patient Assessment Assess patient education level/literacy/barriers, patient's last A1c in April 2025 8.2% Patient has saw Dr. Antonio today. She at Mounjaro 2.5 mg weekly She is holding Lantus 30 units, patient complains of constipation when he takes Lantus. Patient is also on metformin 1000 mg b.i.d. Pioglitazone 30 mg daily Brief overview of Diabetes Management Monitoring blood sugar Following a meal plan Regular exercise Maintaining a healthy weight Taking medication as needed Members of the care team (PCP, RN, MA, RD, CDE, utility tractor operator) Blood glucose monitoring When/how often to test Target blood sugar ranges Introduction to Nutrition Importance of healthy diet in managing DM Diet is personalized to individual preference Review patient?s regular diet/food preferences Who prepares meals/does food shopping/ Dining out?/ Barriers? How diet effects glucose Eating 3 balanced meals a day with small, healthy snacks between meals Review food groups Carbohydrates: What is a carbohydrate/Which food/food groups are considered carbohydrates Effect of carbohydrates on blood glucose Portion sizes Reading food labels Basic carb counting (if applicable per nursing assessment) Plate method Meal planning Recommendations: Follow plate method, consistent carbs and read nutritional labels. Smart Goal: Identify foods in current meal plan that contain carbohydrates Educational Materials: The patient was provided with the following written educational materials: Planning Healthy Meals, target goals Handout Patient Response to instructions: Comprehension of Instructions: Fair Readiness to make changes: Contemplation How confident they feel about making changes: Positive Portions of this note were created using voice recognition software, please excuse any words or phrases that may have been misinterpreted. Medications: On Hold 2 Lantus Solostar U-100 Insulin (insulin glargine) Hold Comment: Dose Change 30 units (0.3 mL) subcut QPM 30 days 9 mL 3RF NS E11.9 - Type 2 diabetes mellitus without complications Patient Instructions: Include regular daily activity. ADA recommends 30 minutes of exercise 5 days a week. Weight loss talk to PCP or Brand Advisor before starting new plan. Test blood sugar as directed; Fasting and 2hpp largest meal. Watch trends in results. Utilize results and to assess how food, physical activity and medications affect blood sugar results. Bring glucometer or CGM to next visit. Be knowledgeable about diabetes medication, its action, side effects, efficacy, toxicity, prescribed dosage, appropriate timing and frequency of administration, effect of missed and delayed doses and instructions for storage, travel and safety. Problem solving techniques to monitor hypo/hyperglycemia episodes and treatments. Reduce risk reduction behaviors, smoking cessation, regular eye, foot and dental examinations. Coding Level of Care Code Est Pt Level 1 (24639) Diagnoses Type 2 diabetes mellitus without complication, with long-term current use of insulin E11.9; Z79.4 Diabetes mellitus type: type 2 Diabetes mellitus skilled nursing insulin use: with skilled nursing use Diabetes mellitus complication status: without complication
== END 2025-05-09 14:47 | disposition home or self-care (01) ==
LOC: HO.ENCR 14:13
PROVIDERS: PCP Internal Medicine; Visit Provider Registered Nurse Diabetes Educator
DX: E11.9 Type 2 diabetes mellitus without complications (principal); Z79.4 Long term (current) use of insulin

== ENCOUNTER → 2025-05-09 14:12 | Outpatient (BNVA) | payer OTHER, SELFPAY | PROVIDERS: PCP Internal Medicine; Visit Provider Internal Medicine | DX: E11.9 Type 2 diabetes mellitus without complications (principal); Z79.4 Long term (current) use of insulin | CPT/HCPCS: 82947; 99211; 99212 ==